=== PATIENT | female | born 1940 | race Caucasian/White ===

== ENCOUNTER 2016-10-08 15:18 | Emergency (ER) | payer MEDICARE, MEDICAID ==
[~2016-10-08] VITALS: Ht 149.9 cm; Wt 136.0 kg
[~2016-10-08 15:18] MED LIST: ALLO300T74 PO; CA C1TAB81 PO; FAMO-14 PO; FURO80TA3 PO; HYDR-1343 PO; HYDROCORTISONE 2.5% TOP; MULT-806 PO; ROSU10TA13 PO; SPIR100T24 PO; TRAM50TA4 PO; [UNRECOGNIZED DRUG - CODE] PO; [UNRECOGNIZED DRUG - OTHER] PO
[2016-10-08 15:21] VITALS: Ht 149.9 cm; Wt 136.0 kg
--- OUTSIDE RECORDS SUMMARY | 2016-10-08 15:26 | XMS REPORT | Referral Summary ---
Author Author [facility] Organization [facility], [facility] Address Unknown Phone Unavailable Care Team Providers Care Promotions Manager Name Role Phone Ricco Dangelo Primary Care Physician [phone] Encounter VC Date(s): 10/22/15 - 10/22/15 [facility], [facility] [address], [place] [id number] Discharge Disposition: 01-Home or Self Care Attending Physician: Emiliana Jean Admitting Physician: Emiliana Jean Vital Signs Most recent to 1 oldest [Reference Range]: Peripheral Pulse 79 bpm Rate [60-100 bpm] (10/22/15 8:51 AM) Blood Pressure 128/70 mmHg [90-140/60-90 mmHg] (10/22/15 8:51 AM) SpO2 94 % (10/22/15 8:51 AM) Problem List Condition Effective Dates Status Health Status Informant Anemia(Confirmed) Active arthritis(Confirmed) Resolved At high risk for Active pneumonia(Confirmed) Benign essential Active hypertension(Confirm ed) Bladder 1990 Active problem(Confirmed) Chicken 194 Active pox(Confirmed) Chronic kidney Active disease (CKD), stage III (moderate)(Confirmed ) Congestive heart Active failure(Confirmed) Constipation - Active occasionally(Confirm ed) Osteoarthritis of Active hand(Confirmed) Digitalis 1990 Active toxicity(Confirmed) polyps(Confirmed) Active Chronic Active gout(Confirmed) Headaches - Active tension(Confirmed) High Active cholesterol(Confirme d) hyperlipidemia(Confi Resolved rmed) hypertension(Confirm Resolved ed) Adult Active hypothyroidism(Confi rmed) Insomnia(Confirmed) Active Kidney Active disease(Confirmed) Kidney Active stones(Confirmed) Lymphedema(Confirmed Active ) lymphedema(Confirmed Resolved ) Lymphedema of Active leg(Confirmed) Morbid Active obesity(Confirmed) Obesity(Confirmed) Active CLARISSA (obstructive Active sleep apnea)(Confirmed) Osteoarthritis, Active hands(Confirmed) Osteoarthritis lower 1990 Active leg(Confirmed) Osteoarthritis of Active both knees(Confirmed) Peripheral Active edema(Confirmed) Pernicious Active anemia(Confirmed) Thrombocytopenia(Con Active firmed) Primary Active hypercholesterolemia (Confirmed) Rosacea(Confirmed) Active Tubular Active adenoma(Confirmed) Villoglandular 2007 Active colonic polyp(Confirmed) Villoglandular 2009 Active colonic polyp(Confirmed) Villoglandular 2009 Active colonic polyp(Confirmed) Visual Active problems(Confirmed) Allergies, Adverse Reactions, Alerts Substance Reaction Severity Status Bactrim Active Mupirocin Calcium rash Active sulfamethoxazole rash all over Active trimethoprim rash all over Active Medications allopurinol 300 mg oral tablet See Instructions, TAKE ONE TABLET BY MOUTH ONCE A DAY, # 30 tabs, 1 Refill(s), eRx: [facility] #[id number], TAKE ONE TABLET BY MOUTH ONCE A DAY Start Date: 09/21/15 Status: Ordered Crestor 10 mg oral tablet See Instructions, TAKE ONE TABLET BY MOUTH AT BEDTIME, # 90 tabs, eRx: [facility] #[id number], TAKE ONE TABLET BY MOUTH AT BEDTIME Start Date: 10/02/15 Status: Ordered famotidine 20 mg oral tablet See Instructions, TAKE ONE TABLET BY MOUTH TWICE A DAY, # 60 tabs, 1 Refill(s), eRx: [facility] #[id number], TAKE ONE TABLET BY MOUTH TWICE A DAY Start Date: 10/12/15 Status: Ordered fluticasone nasal 2 sprays, Nasal, Daily, as needed for allergy symptoms, 0 Refill(s) Start Date: 12/25/13 Status: Ordered furosemide 80 mg oral tablet See Instructions, TAKE ONE-HALF TABLET BY MOUTH EVERY DAY, # 30 tabs, 3 Refill(s ), eRx: [facility] #[id number], TAKE ONE-HALF TABLET BY MOUTH EVERY DAY Start Date: 05/18/15 Status: Ordered hydrocortisone 2.5% topical cream See Instructions, APPLY VERY LIGHTLY TO FACIAL RASH TWO TIMES A DAY NEEDED, # 30 unknown unit, eRx: [facility] #[id number], APPLY VERY LIGHTLY TO FACIAL RASH TWO TIMES A DAY NEEDED Start Date: 12/19/14 Status: Ordered levothyroxine 25 mcg (0.025 mg) oral tablet See Instructions, TAKE ONE TABLET BY MOUTH DAILY, # 30 tabs, 3 Refill(s), eRx: [facility] #[id number], TAKE ONE TABLET BY MOUTH DAILY Start Date: 08/03/15 Status: Ordered Metafolbic Plus oral tablet See Instructions, TAKE ONE TABLET BY MOUTH DAILY, # 30 tabs, eRx: [facility] #[id number], TAKE ONE TABLET BY MOUTH DAILY Start Date: 10/19/15 Status: Ordered pyridoxine 100 mg oral tablet 1 tabs, Oral, Daily, 0 Refill(s) Start Date: 12/25/13 Status: Ordered spironolactone 100 mg oral tablet See Instructions, TAKE ONE TABLET BY MOUTH EVERY DAY., # 30 tabs, 9 Refill(s), eRx: [facility] #[id number], TAKE ONE TABLET BY MOUTH EVERY DAY. Start Date: 12/17/14 Status: Ordered traMADol 50 mg oral tablet 50 mg 1 tabs, Oral, q6hr, as needed for pain, [place], # 60 tabs, 2 Refill(s) Start Date: 07/01/15 Status: Ordered Vitamin D with Minerals oral tablet 1 tabs, Oral, Daily, # 30 tabs, 0 Refill(s) Start Date: 02/27/14 Status: Ordered Wheelchair (DME) DME Item Electric wheelchair, See Instructions, # 1 Each, 0 Refill(s), Supply Start Date: 07/29/14 Status: Ordered Results No data available for this section Immunizations Vaccine Date Refusal Reason pneumococcal 23-polyvalent vaccine 11/07/14 pneumococcal 23-polyvalent vaccine 11/01/13 tetanus-diphth toxoids (Td) adult/adol 09/05/08 zoster vaccine live 07/12/07 Procedures Procedure Date Related Diagnosis Body Site Cataract extraction and insertion of 2013 intraocular lens1 Cataract extraction and insertion of 2013 intraocular lens2 Colonoscopy 2011 Colonoscopy - Hx polyps, tubular adenoma 05/21/10 Colonoscopy - Hx polyps, tubular adenoma 04/10/09 Colonoscopy - Hx polyps, polyp 09/26/08 Colonoscopy with biopsy3 08/24/07 Dilation and curettage 2001 Hysteroscopy 2001 digitalis toxicity 1990 Cholecystectomy 1974 Appendectomy 1974 section 1965 section 1964 Dilation and curettage 1954 Tubal ligation 1November--OS--did 4 different procedures 2OD 3Colonoscopy with hyperplastic polyp ascending colon, biopsy of cecal lesion showing tubulovillous adenoma, unable to be removed endoscopically. Pt not wishing to have surgery at this time. Plan repeat colonoscopy in 6 months to one year. Letter set up. Social History Social History Type Response Smoking Status Former smoker; Type: Cigarettes; Tobacco use per day: More than 1 pack; Number of years: 38 Assessment and Plan No data available for this section
--- OUTSIDE RECORDS SUMMARY | 2016-10-08 15:26 | XMS REPORT | Referral Summary ---
Author Author [facility] [place], [facility] Organization [facility] [place] [facility] Address Unknown Phone Unavailable Care Team Providers Care Health And Wellness Sales Consultant Name Role Phone Ricco Dangelo Primary Care Physician [phone] Encounter VC Date(s): 08/14/15 - 08/14/15 [facility] [place], [address] [place] [address] Discharge Disposition: 01-Home or Self Care Attending Physician: Joshua Dangelo MD Admitting Physician: Joshua Dangelo MD Vital Signs Most recent to 1 oldest [Reference Range]: Temperature Tympanic 36.6 degC [36.6-38.1 degC] (08/14/15 9:45 AM) Peripheral Pulse 78 bpm Rate [60-100 bpm] (08/14/15 9:45 AM) Blood Pressure 122/64 mmHg [90-140/60-90 mmHg] (08/14/15 9:45 AM) Problem List Condition Effective Dates Status Health Status Informant Anemia(Confirmed) Active arthritis(Confirmed) Resolved At high risk for Active pneumonia(Confirmed) Benign essential Active hypertension(Confirm ed) Bladder 1990 Active problem(Confirmed) Chicken 1944 Active pox(Confirmed) Chronic kidney Active disease (CKD), [...] DAY, # 30 tabs, 1 Refill(s), eRx: [facility] #[id number], TAKE ONE TABLET BY MOUTH ONCE A DAY Start Date: 07/20/15 Status: Ordered Colcrys 0.6 mg oral tablet 0.6 mg 1 tabs, Oral, Daily, X 3 days, # 3 tabs, 0 Refill(s), Pharmacy: [facility] #[id number] Start Date: 08/14/15 Stop Date: 08/17/15 Status: Ordered Crestor 10 mg oral tablet See Instructions, TAKE ONE TABLET BY MOUTH AT BEDTIME, # 90 tabs, 2 Refill(s), eRx: [facility] #[id number], TAKE ONE TABLET BY MOUTH AT BEDTIME Start Date: 12/05/14 Status: Ordered famotidine 20 mg oral tablet See Instructions, TAKE ONE TABLET BY MOUTH TWICE A DAY, # 60 tabs, 10 Refill(s) , eRx: [facility] #[id number], TAKE ONE TABLET BY MOUTH TWICE A DAY Start Date: 11/14/14 Status: Ordered fluticasone nasal 2 sprays, Nasal, Daily, as needed for allergy symptoms, 0 Refill(s) Start Date: 12/25/13 Status: Ordered furosemide 80 mg oral tablet See Instructions, TAKE ONE-HALF TABLET BY MOUTH EVERY DAY, # 30 tabs, 3 Refill(s ), eRx: [facility] #[id number], TAKE ONE-HALF TABLET BY MOUTH EVERY DAY Start Date: 05/18/15 Status: Ordered hydrocortisone 2.5% topical cream See Instructions, APPLY VERY LIGHTLY TO FACIAL RASH TWO TIMES A DAY NEEDED, # 30 unknown unit, eRx: [facility] #[id number], APPLY VERY LIGHTLY TO FACIAL RASH TWO TIMES A DAY NEEDED Start Date: 12/19/14 Status: Ordered levothyroxine 25 mcg (0.025 mg) oral tablet See Instructions, TAKE ONE TABLET BY MOUTH DAILY, # 30 tabs, 3 Refill(s), eRx: [facility] #[id number], TAKE ONE TABLET BY MOUTH DAILY Start Date: 08/03/15 Status: Ordered Metafolbic Plus oral tablet See Instructions, TAKE ONE TABLET BY MOUTH DAILY, # 30 tabs, 10 Refill(s), eRx: [facility] #[id number], TAKE ONE TABLET BY MOUTH DAILY Start Date: 11/14/14 Status: Ordered pyridoxine 100 mg oral tablet 1 tabs, Oral, Daily, 0 Refill(s) Start Date: 12/25/13 Status: Ordered spironolactone 100 mg oral tablet See Instructions, TAKE ONE TABLET BY MOUTH EVERY DAY., # 30 tabs, 9 Refill(s), eRx: [facility] #[id number], TAKE ONE TABLET BY MOUTH EVERY DAY. [...] Supply Start Date: 07/29/14 Status: Ordered Results Hematology Most recent to 1 oldest [Reference Range]: WBC [4.8-10.8 6.6 10*3/uL 10*3/uL] (08/14/15 10:30 AM) RBC [4.00-5.20] 3.69 *LOW* (08/14/15 10:30 AM) Hgb [12.0-16.0 11.6 gm/dL gm/dL] *LOW* (08/14/15 10:30 AM) Hct [37.0-47.0 %] 34.9 % *LOW* (08/14/15 10:30 AM) MCV [82.0-99.0 fL] 94.6 fL (08/14/15 10:30 AM) MCH [27.0-32.0 pg] 31.4 pg (08/14/15 10:30 AM) MCHC [32.0-36.0 33.2 gm/dL gm/dL] (08/14/15 10:30 AM) RDW [11.5-14.5 %] 15.8 % *HI* (08/14/15 10:30 AM) Platelet [150-400 80 10*3/uL 1 10*3/uL] *LOW* (08/14/15 10:30 AM) MPV [8.8-14.8 fL] 12.1 fL (08/14/15 10:30 AM) Neutrophils [51-75 61 % %] (08/14/15 10:30 AM) Lymphocytes [20-46 28 % %] (08/14/15 10:30 AM) Monocytes [4-11 %] 11 % (08/14/15 10:30 AM) Eosinophils [0-4 %] 0 % (08/14/15 10:30 AM) Basophils [0-2 %] 0 % (08/14/15 10:30 AM) Neutro Absolute 4.03 10*3 [1.90-7.00 10*3] (08/14/15 10:30 AM) Lymph Absolute 1.85 10*3 [0.80-3.30 10*3] (08/14/15 10:30 AM) [place] Absolute 0.73 10*3 [0.30-1.00 10*3] (08/14/15 10:30 AM) Eos Absolute 0.00 10*3 [0.00-0.50 10*3] (08/14/15 10:30 AM) Baso Absolute 0.00 10*3 [0.00-0.20 10*3] (08/14/15 10:30 AM) Differential Manual *ABN* (08/14/15 10:30 AM) 1Result Comment: Platelet checks with slide. No clumps appear. Chemistry Most recent to 1 oldest [Reference Range]: Sodium Lvl [135-144 139 mEq/L mEq/L] (08/14/15 10:30 AM) Potassium Lvl 4.5 mEq/L [3.5-5.2 mEq/L] (08/14/15 10:30 AM) Chloride [99-111 106 mEq/L mEq/L] (08/14/15 10:30 AM) CO2 [22-31 mEq/L] 24 mEq/L (08/14/15 10:30 AM) AGAP [3-20] 9 (08/14/15 10:30 AM) BUN [10-20 mg/dL] 34 mg/dL *HI* (08/14/15 10:30 AM) Glucose Lvl [70-99 98 mg/dL mg/dL] (08/14/15 10:30 AM) Creatinine Lvl 1.13 mg/dL [0.57-1.11 mg/dL] *HI* (08/14/15 10:30 AM) eGFR [>60 mL/min] 47 mL/min 1 *ABN* (08/14/15 10:30 AM) Calcium Lvl 9.5 mg/dL [8.9-10.5 mg/dL] (08/14/15 10:30 AM) Albumin Lvl [3.4-4.8 4.2 gm/dL gm/dL] (08/14/15 10:30 AM) Total Protein 7.4 gm/dL [6.2-8.1 gm/dL] (08/14/15 10:30 AM) Globulin [1.8-4.0 3.2 gm/dL gm/dL] (08/14/15 10:30 AM) ALT [0-55 U/L] 10 U/L (08/14/15 10:30 AM) AST [5-34 U/L] 16 U/L (08/14/15 10:30 AM) Alk Phos [40-150 106 U/L U/L] (08/14/15 10:30 AM) Bili Total [0.2-1.2 0.6 mg/dL mg/dL] (08/14/15 10:30 AM) Uric Acid [2.6-6.0 4.5 mg/dL mg/dL] (08/14/15 10:30 AM) TSH [0.35-4.94] 2.58 (08/14/15 10:30 AM) 1Result Comment: Multiply eGFR results by 1.21 for race. Immunizations Vaccine Date Refusal Reason pneumococcal 23-polyvalent [...] 2001 digitalis toxicity 1990 Cholecystectomy 1974 Appendectomy 1973 section 1965 section 1963 Dilation and curettage 1954 Tubal ligation 1November--OS--did [...] Number of years: 38 Assessment and Plan Extracted from: Title: Ambulatory Patient Education Author: Joshua Dangelo MD Date: 08/14 Family Medicine Gout Gout is an inflammatory arthritis caused by a buildup of uric acid crystals in the joints. Uric acid is a chemical that is normally present in the blood. When the level of uric acid in the blood is too high it can form crystals that deposit in your joints and tissues. This causes joint redness, soreness, and swelling (inflammation). Repeat attacks are common. Over time, uric acid crystals can form into masses (tophi) near a joint, destroying bone and causing disfigurement. Gout is treatable and often preventable. CAUSES The disease begins with elevated levels of uric acid in the blood. Uric acid is produced by your body when it breaks down a naturally found substance called purines. Certain foods you eat, such as meats and fish, contain high amounts of purines. Causes of an elevated uric acid level include: Being passed down from parent to child (heredity). Diseases that cause increased uric acid production (such as obesity, psoriasis, and certain cancers). Excessive alcohol use. Diet, especially diets rich in meat and seafood. Medicines, including certain cancer-fighting medicines (chemotherapy), water pills (diuretics), and aspirin. Chronic kidney disease. The kidneys are no longer able to remove uric acid well. Problems with metabolism. Conditions strongly associated with gout include: Obesity. High blood pressure. High cholesterol. Diabetes. Not everyone with elevated uric acid levels gets gout. It is not understood why some people get gout and others do not. Surgery, joint injury, and eating too much of certain foods are some of the factors that can lead to gout attacks. SYMPTOMS An attack of gout comes on quickly. It causes intense pain with redness, swelling, and warmth in a joint. Fever can occur. Often, only one joint is involved. Certain joints are more commonly involved: Base of the big toe. Knee. Ankle. Wrist. Finger. Without treatment, an attack usually goes away in a few days to weeks. Between attacks, you usually will not have symptoms, which is different from many other forms of arthritis. DIAGNOSIS Your caregiver will suspect gout based on your symptoms and exam. In some cases , tests may be recommended. The tests may include: Blood tests. Urine tests. X-rays. Joint fluid exam. This exam requires a needle to remove fluid from the joint (arthrocentesis). Using a microscope, gout is confirmed when uric acid crystals are seen in the joint fluid. TREATMENT There are two phases to gout treatment: treating the sudden onset (acute) attack and preventing attacks (prophylaxis). Treatment of an Acute Attack. Medicines are used. These include anti-inflammatory medicines or steroid medicines. An injection of steroid medicine into the affected joint is sometimes necessary. The painful joint is rested. Movement can worsen the arthritis. You may use warm or cold treatments on painful joints, depending which works best for you. Treatment to Prevent Attacks. If you suffer from frequent gout attacks, your caregiver may advise preventive medicine. These medicines are started after the acute attack subsides. These medicines either help your kidneys eliminate uric acid from your body or decrease your uric acid production. You may need to stay on these medicines for a very long time. The early phase of treatment with preventive medicine can be associated with an increase in acute gout attacks. For this reason, during the first few months of treatment, your caregiver may also advise you to take medicines usually used for acute gout treatment. Be sure you understand your caregiver's directions. Your caregiver may make several adjustments to your medicine dose before these medicines are effective. Discuss dietary treatment with your caregiver or dietitian. Alcohol and drinks high in sugar and fructose and foods such as meat, poultry, and seafood can increase uric acid levels. Your caregiver or dietitian can advise you on drinks and foods that should be limited. HOME CARE INSTRUCTIONS Do not take aspirin to relieve pain. This raises uric acid levels. Only take [id number] or prescription medicines for pain, discomfort , or fever as directed by your caregiver. Rest the joint as much as possible. When in bed, keep sheets and blankets off painful areas. Keep the affected joint raised (elevated). Apply warm or cold treatments to painful joints. Use of warm or cold treatments depends on which works best for you. Use crutches if the painful joint is in your leg. Drink enough fluids to keep your urine clear or pale yellow. This helps your body get rid of uric acid. Limit alcohol, sugary drinks, and fructose drinks. Follow your dietary instructions. Pay careful attention to the amount of protein you eat. Your daily diet should emphasize fruits, vegetables, whole grains, and fat-free or low-fat milk products. Discuss the use of coffee, vitamin C, and cherries with your caregiver or dietitian. These may be helpful in lowering uric acid levels. Maintain a healthy body weight. SEEK MEDICAL CARE IF: You develop diarrhea, vomiting, or any side effects from medicines. You do not feel better in 24 hours, or you are getting worse. SEEK IMMEDIATE MEDICAL CARE IF: Your joint becomes suddenly more tender, and you have chills or a fever. MAKE SURE YOU: Understand these instructions. Will watch your condition. Will get help right away if you are not doing well or get worse. This information is not intended to replace advice given to you by your health care provider. Make sure you discuss any questions you have with your health care provider. Document Released: 06/16/2001 Document Revised: 11/03/2014 Document Reviewed: [facility] Patient Information 2015 [facility]. No follow up information was provided. Extracted from: Title: gout, obesity, lymphedema, Author: Joshua Dangelo MD Date: HTN Impression and Plan Diagnosis Acute gout of right hand ([id number]-LP [id number].0410, Working, Medical). CLARISSA (obstructive sleep apnea) (OIA69-SI G47.33, Working, Medical). Benign essential hypertension (TPC58-NO I10, Working, Medical). Primary hypercholesterolemia (ZGH92-MB E78.0, Working, Medical). Lymphedema of leg (PKO53-RR I89.0, Working, Medical). Morbid obesity (GFM50-DP E66.01, Working, Medical). Osteoarthritis of both knees (VXV99-YO M17.0, Working, Medical). Pernicious anemia (YZN99-IN D51.0, Working, Medical). Chronic kidney disease (CKD), stage III (moderate) (MZC42-IT N18.3, Working, Medical). Thrombocytopenia (HXO60-AY D69.6, Working, Medical). Hypothyroidism, adult (MTU25-ZP E03.9, Working, Medical). Plan: 1) Get lab today. 2) Take the Colcrys daily for 3 days for gout. 3) Continue your routine meds. 4) Healthy diet and daily exercise helps most things. 5) See me in 3 months and as needed. 6) You refused the flu shot.. Orders Orders (Selected) Outpatient Orders Ordered Office Visit Level 4 Est 91356: Future (On Hold) CBC w/ Differential: CMP: TSH 3rd Generation: Uric Acid: Prescriptions Prescribed Colcrys 0.6 mg oral tablet: 0.6 mg=1 tabs, Oral, Daily, for 3 days, 3 tabs, 0 Refill(s). Dx/Order Association Plan: Diagnosis: Acute gout of right hand Comment: Ordered: Office Visit Level 4 Est [id number]; 08/14/15 10:03:00 CYBER CRIME INVESTIGATOR, Acute gout of right hand | Benign essential hypertension | Chronic kidney disease (CKD), stage III (moderate) | Lymphedema of leg Diagnosis: Benign essential hypertension Comment: Ordered: Office Visit Level 4 Est [id number]; 08/14/15 10:03:00 CYBER CRIME INVESTIGATOR, Acute gout of right hand | Benign essential hypertension | Chronic kidney disease (CKD), stage III (moderate) | Lymphedema of leg Diagnosis: Chronic kidney disease (CKD), stage III (moderate) Comment: Ordered: Office Visit Level 4 Est [id number]; 08/14/15 10:03:00 CYBER CRIME INVESTIGATOR, Acute gout of right hand | Benign essential hypertension | Chronic kidney disease (CKD), stage III (moderate) | Lymphedema of leg Diagnosis: Hypothyroidism, adult Comment: Diagnosis: Lymphedema of leg Comment: Ordered: Office Visit Level 4 Est [id number]; 08/14/15 10:03:00 CYBER CRIME INVESTIGATOR, Acute gout of right hand | Benign essential hypertension | Chronic kidney disease (CKD), stage III (moderate) | Lymphedema of leg Diagnosis: Morbid obesity Comment: Diagnosis: CLARISSA (obstructive sleep apnea) Comment: Diagnosis: Osteoarthritis of both knees Comment: Diagnosis: Pernicious anemia Comment: Diagnosis: Primary hypercholesterolemia Comment: Diagnosis: Thrombocytopenia Comment: Diagnosis: Benign essential hypertension Comment: Diagnosis: Primary hypercholesterolemia Comment: Diagnosis: Lymphedema of leg Comment: Diagnosis: Chronic kidney disease (CKD), stage III (moderate) Comment: Diagnosis: Acute gout of right hand Comment: Diagnosis: Benign essential hypertension Comment: Diagnosis: Thrombocytopenia Comment: Diagnosis: Pernicious anemia Comment: Diagnosis: Chronic kidney disease (CKD), stage III (moderate) Comment: Diagnosis: Hypothyroidism, adult Comment: Additional Orders: Comment: Ordered: Colcrys 0.6 mg oral tablet,0.6 mg 1 tabs, Oral, Daily, X 3 days, # 3 tabs, 0 Refill(s), Pharmacy: [facility] #[id number] End of Orders ."
--- OUTSIDE RECORDS SUMMARY | 2016-10-08 15:26 | XMS REPORT | Referral Summary ---
Author Author [facility] Organization [facility] Address Unknown Phone Unavailable Care Team Providers Care Recreation Professor Name Role Phone Ricco Dangelo Primary Care Physician [phone] Encounter VC Date(s): 03/04/16 - 03/04/16 [facility] [address] [place], [place] [id number] Discharge Diagnosis: Tubular adenoma Discharge Disposition: 01-Home or Self Care Attending Physician: Kris Dallas MD Admitting Physician: Kris Dallas MD Vital Signs Most recent to 1 oldest [Reference Range]: Temperature Temporal 36.6 degC Artery [36.3-37.8 (03/04/16 6:53 AM) degC] Peripheral Pulse 66 bpm Rate [60-100 bpm] (03/04/16 6:53 AM) Respiratory Rate 20 br/min [14-20 br/min] (03/04/16 6:53 AM) Blood Pressure 150/86 mmHg [90-140/60-90 mmHg] *HI* (03/04/16 6:53 AM) SpO2 94 % (03/04/16 6:53 AM) Problem List Condition Effective Dates Status Health Status Informant Anemia(Confirmed) Active arthritis(Confirmed) Resolved At high risk for Active pneumonia(Confirmed) Benign essential Active hypertension(Confirm ed) Tubular Active adenoma(Confirmed) Bladder 1990 Active problem(Confirmed) Sleep related Active hypoventilation/hypo xemia in other disease(Confirmed) Chicken 1944 Active pox(Confirmed) Chronic kidney Active disease (CKD), stage III (moderate)(Confirmed ) Congestive heart Active failure(Confirmed) Constipation - Active occasionally(Confirm ed) Osteoarthritis of Active hand(Confirmed) Digitalis 1990 Active toxicity(Confirmed) polyps(Confirmed) Active Headaches - Active tension(Confirmed) High Active cholesterol(Confirme [...] edema(Confirmed) Pernicious Active anemia(Confirmed) Thrombocytopenia(Con Active firmed) Chronic Active gout(Confirmed) Primary Active hypercholesterolemia (Confirmed) Rosacea(Confirmed) Active Villoglandular 2007 Active colonic polyp(Confirmed) Villoglandular 2008 Active colonic polyp(Confirmed) Villoglandular 2009 Active colonic polyp(Confirmed) Visual Active problems(Confirmed) Allergies, Adverse Reactions, Alerts Substance Reaction Severity Status Bactrim Active Mupirocin Calcium rash Active sulfamethoxazole rash all over Active trimethoprim rash all over Active Medications allopurinol 300 mg oral tablet See Instructions, TAKE ONE TABLET BY MOUTH ONCE A DAY, # 30 tabs, 2 Refill(s), eRx: [facility] #[id number], TAKE ONE TABLET BY MOUTH ONCE A DAY Start Date: 11/23/15 Status: Ordered Crestor 10 mg oral tablet See Instructions, TAKE ONE TABLET BY MOUTH AT BEDTIME, # 90 tabs, eRx: [facility] #[id number], TAKE ONE TABLET BY MOUTH AT BEDTIME Start Date: 01/01/16 Status: Ordered famotidine 20 mg oral tablet See Instructions, TAKE ONE TABLET BY MOUTH TWICE A DAY, # 60 tabs, 2 Refill(s), eRx: [facility] #[id number], TAKE ONE TABLET BY MOUTH TWICE A DAY Start Date: 12/03/15 Status: Ordered fluticasone nasal 2 sprays, Nasal, Daily, as needed for allergy symptoms, 0 Refill(s) Start Date: 12/25/13 Status: Ordered hydrocortisone 2.5% topical cream See Instructions, APPLY VERY LIGHTLY TO FACIAL RASH TWO TIMES A DAY NEEDED, # 30 unknown unit, 1 Refill(s), eRx: [facility] #[id number], APPLY VERY LIGHTLY TO FACIAL RASH TWO TIMES A DAY NEEDED Start Date: 01/21/16 Status: Ordered levothyroxine 25 mcg (0.025 mg) oral tablet See Instructions, TAKE ONE TABLET BY MOUTH DAILY, # 30 tabs, 6 Refill(s), eRx: [facility] #[id number], TAKE ONE TABLET BY MOUTH DAILY Start Date: 12/09/15 Status: Ordered Metafolbic Plus oral tablet See Instructions, TAKE ONE TABLET BY MOUTH DAILY, # 30 tabs, 1 Refill(s), eRx: [facility] #[id number], TAKE ONE TABLET BY MOUTH DAILY Start Date: 01/11/16 Status: Ordered pyridoxine 100 mg oral tablet 1 tabs, Oral, Daily, 0 Refill(s) Start Date: 12/25/13 Status: Ordered spironolactone 100 mg oral tablet See Instructions, TAKE ONE TABLET BY MOUTH EVERY DAY., # 30 tabs, 1 Refill(s), eRx: [facility] #[id number], TAKE ONE TABLET BY MOUTH EVERY DAY. Start Date: 12/15/15 Status: Ordered traMADol 50 mg oral tablet 50 mg 1 tabs, Oral, q6hr, as needed for pain, [place] Lindsey, # 60 tabs, 1 Refill(s) Start Date: 12/21/15 Status: Ordered Vitamin D with Minerals oral tablet 1 tabs, Oral, Daily, # 30 tabs, 0 Refill(s) Start Date: 02/27/14 Status: Ordered Wheelchair (DME) DME Item Electric wheelchair, See Instructions, # 1 Each, 0 Refill(s), Supply Start Date: 07/29/14 Status: Ordered Results No data available for this section Immunizations Vaccine Date Refusal Reason pneumococcal 13-valent conjugate vaccine 02/12/16 pneumococcal 23-polyvalent vaccine 11/07/14 pneumococcal 23-polyvalent vaccine [...] and curettage 2001 Hysteroscopy 2001 digitalis toxicity 1991 Cholecystectomy 1974 Appendectomy 1973 section 1964 section 1964 Dilation and curettage 1954 Tubal [...] Extracted from: Title: Ambulatory Patient Education Author: Wendi Briscoe RN Date: 03/04/16 [facility] [phone] [facility] [phone] Endoscopy discharge instructions Diet Start with liquids, then light foods, then progress to normal foods. Medication Resume routine medications. Follow- up Care If any problems occur or if you have any further questions, please contact your physician. In an emergency, call [phone] ([phone]), if you cannot reach your physician. If you find that you cannot contact your physician, but feel that your signs and symptoms warrant a physicians attention, go to an Emergency room which is the closest to you. You have had: X Colonoscopy Upper Endoscopy Liver Biopsy You should rest today. You have had sedating medicines. Until tomorrow please: Do NOT drive or operate hazardous machinery or power tools. Do NOT drink alcoholic beverages, not even beer or wine. Do NOT make important or legal decisions. Do NOT shower or bathe as this may cause dizziness. Because of the sedation you have received, we ask that a responsible adult be with you for the rest of the day for your safety and protection. Call your doctor promptly if you have: Redness or swelling at IV site. If fever over 101degree Pain not relieved by pain medication by Tylenol. Coughing or spitting up blood. Persistent nausea and vomiting. Excessive blood with bowel movement. Findings: See me in the office in 2 weeks. No follow up information was provided.
--- OUTSIDE RECORDS SUMMARY | 2016-10-08 15:26 | XMS REPORT | Referral Summary ---
Author Author [facility] [place], [facility] Organization [facility] Address Unknown Phone Unavailable Care Team Providers Care Paint Brush Maker Name Role Phone Ricco Dangelo Primary Care Physician [phone] Encounter Date(s): 08/19/16 - 08/19/16 [facility] [place], [address] [place] [address] Discharge Diagnosis: Primary hypercholesterolemia Discharge Diagnosis: Morbid obesity Discharge Diagnosis: CLARISSA on CPAP Discharge Diagnosis: Orthopnea Discharge Diagnosis: Chronic kidney disease (CKD), stage III (moderate) Discharge Diagnosis: Fatigue Discharge Diagnosis: Lymphedema of leg Discharge Diagnosis: Tension headache Discharge Diagnosis: Benign essential hypertension Discharge Diagnosis: Thrombocytopenia Discharge Diagnosis: Pernicious anemia Discharge Diagnosis: Adult hypothyroidism Discharge Diagnosis: Osteoarthritis of both knees Discharge Diagnosis: Chronic gout Discharge Diagnosis: Tension headache Discharge Diagnosis: Primary hypercholesterolemia Discharge Diagnosis: Chronic gout Discharge Disposition: 01-Home or Self Care Attending Physician: Joshua Dangelo MD Admitting Physician: Joshua Dangelo MD Vital Signs Most recent to 1 oldest [Reference Range]: Temperature Tympanic 36.6 degC [36.6-38.1 degC] (08/19/16 9:59 AM) Peripheral Pulse 76 bpm Rate [60-100 bpm] (08/19/16 9:59 AM) Blood Pressure 170/72 mmHg [90-140/60-90 mmHg] *HI* (08/19/16 9:59 AM) Problem List Condition Effective Dates Status [...] edema(Confirmed) Pernicious Active anemia(Confirmed) Thrombocytopenia(Con Active firmed) Polyp of Active cecum(Confirmed) Chronic Active gout(Confirmed) Primary Active hypercholesterolemia (Confirmed) [...] MOUTH ONCE A DAY, # 30 tabs, 10 Refill(s), eRx: [facility] #[id number], TAKE ONE TABLET BY MOUTH ONCE A DAY Start Date: 03/08/16 Status: Ordered Crestor 10 mg oral tablet See Instructions, TAKE ONE TABLET BY MOUTH AT BEDTIME, # 90 tabs, 2 Refill(s), eRx: [facility] #[id number], TAKE ONE TABLET BY MOUTH AT BEDTIME Start Date: 04/04/16 Status: Ordered famotidine 20 mg oral tablet See Instructions, TAKE ONE TABLET BY MOUTH TWICE A DAY, # 60 tabs, 10 Refill(s) , eRx: [facility] #[id number], TAKE ONE TABLET BY MOUTH TWICE A DAY Start Date: 03/08/16 Status: Ordered fluticasone nasal 2 sprays, Nasal, Daily, as needed for allergy symptoms, 0 Refill(s) Start Date: 12/25/13 Status: Ordered furosemide 80 mg oral tablet See Instructions, TAKE ONE-HALF TABLET BY MOUTH EVERY DAY, # 30 tabs, 3 Refill(s ), eRx: [facility] #[id number], TAKE ONE-HALF TABLET BY MOUTH EVERY DAY Start Date: 06/06/16 Status: Ordered hydrocortisone 2.5% topical cream See Instructions, APPLY VERY LIGHTLY TO FACIAL RASH TWO TIMES A DAY NEEDED, # 30 unknown unit, 1 Refill(s), eRx: [facility] #[id number], APPLY VERY LIGHTLY TO FACIAL RASH TWO TIMES A DAY NEEDED Start Date: 01/21/16 Status: Ordered l-methylfolate 7.5 mg oral tablet 7.5 mg 1 tabs, Oral, Daily, # 30 tabs, 10 Refill(s), Pharmacy: [facility] #[id number], Cancel Metafolbic Plus Caplet, 1 tabs Oral Daily Start Date: 03/08/16 Status: Ordered levothyroxine 25 mcg (0.025 mg) oral tablet See Instructions, TAKE ONE TABLET BY MOUTH DAILY, # 30 tabs, eRx: [facility] #[id number] Start Date: 08/09/16 Status: Ordered pyridoxine 100 mg oral tablet 1 tabs, Oral, Daily, 0 Refill(s) Start Date: 12/25/13 Status: Ordered spironolactone 100 mg oral tablet See Instructions, TAKE ONE TABLET BY MOUTH EVERY DAY., # 30 tabs, 10 Refill(s), eRx: [facility] #[id number], TAKE ONE TABLET BY MOUTH EVERY DAY. Start Date: 03/08/16 Status: Ordered traMADol 50 mg oral tablet 50 mg 1 tabs, Oral, q6hr, as needed for pain, [place], # 60 tabs, 1 Refill(s) Start Date: 08/09/16 Status: Ordered Vitamin B-12 1000 mcg oral tablet 2,000 mcg 2 tabs, Oral, Daily, # 60 tabs, 10 Refill(s), Pharmacy: [facility] #[id number], Cancel Metafolbic Plus Caplet, 2 tabs Oral Daily Start Date: 03/08/16 Status: Ordered Vitamin D with Minerals oral tablet 1 tabs, Oral, Daily, # 30 tabs, 0 Refill(s) Start Date: 02/27/14 Status: Ordered Wheelchair (DME) DME Item Electric wheelchair, See Instructions, # 1 Each, 0 Refill(s), Supply Start Date: 07/29/14 Status: Ordered Results Hematology Most recent to 1 oldest [Reference Range]: WBC [4.8-10.8 7.2 10*3/uL 10*3/uL] (08/19/16 11:23 AM) RBC [4.00-5.20] 3.71 *LOW* (08/19/16 11:23 AM) Hgb [12.0-16.0 11.5 gm/dL gm/dL] *LOW* (08/19/16 11:23 AM) Hct [37.0-47.0 %] 35.9 % *LOW* (08/19/16:23 AM) MCV [82.0-99.0 fL] 96.8 fL (08/19/16 11:23 AM) MCH [27.0-32.0 pg] 31.0 pg (08/19/16 11:23 AM) MCHC [32.0-36.0 32.0 gm/dL gm/dL] (08/19/16 11:23 AM) RDW [11.5-14.5 %] 15.9 % *HI* (08/19/16 11:23 AM) Platelet [150-400 92 10*3/uL 1 10*3/uL] *LOW* (08/19/16 11:23 AM) MPV [8.8-14.8 fL] 13.1 fL (08/19/16 11:23 AM) Immature 0.6 % Granulocytes (08/19/16:23 AM) [0.0-1.0 %] Neutrophils [51-75 57 % %] (08/19/16 11:23 AM) Lymphocytes [20-46 20 % %] (08/19/16 11:23 AM) Monocytes [4-11 %] 22 % *HI* (08/19/16 11:23 AM) Eosinophils [0-4 %] 0 % (08/19/16 11:23 AM) Basophils [0-2 %] 0 % (08/19/16 11:23 AM) Neutro Absolute 4.12 [1.90-7.00] (08/19/16 11:23 AM) Lymph Absolute 1.43 [0.80-3.30] (08/19/16:23 AM) Pettis Absolute 1.61 [0.30-1.00] *HI* (08/19/16 AM) Eos Absolute 0.01 [0.00-0.50] (08/19/16:23 AM) Baso Absolute 0.00 [0.00-0.20] (08/19/16 AM) Differential Scanned Slide (08/19/16 AM) 1Result Comment: Platelet count may be higher due to platelet clumping on smear. Chemistry Most recent to 1 oldest [Reference Range]: Sodium Lvl [135-144 142 mEq/L mEq/L] (08/19/16 AM) Potassium Lvl 4.2 mEq/L [3.5-5.2 mEq/L] (08/19/16 AM) Chloride [99-111 108 mEq/L mEq/L] (08/19/16 AM) CO2 [22-31 mEq/L] 22 mEq/L (08/19/16 AM) AGAP [3-20] 12 (08/19/16 AM) BUN [10-20 mg/dL] 37 mg/dL *HI* (08/19/16 AM) Glucose Lvl [70-99 94 mg/dL mg/dL] (08/19/16 AM) Creatinine Lvl 1.20 mg/dL [0.57-1.11 mg/dL] *HI* (08/19/16 AM) eGFR [>60 mL/min] 43 mL/min 1 *ABN* (08/19/16 AM) Calcium Lvl 9.3 mg/dL 2 [8.4-10.2 mg/dL] (08/19/16 AM) Albumin Lvl [3.4-4.8 4.4 gm/dL gm/dL] (08/19/16 AM) Total Protein 7.8 gm/dL [6.0-7.6 gm/dL] *HI* (08/19/16 AM) Globulin [1.8-4.0 3.4 gm/dL gm/dL] (08/19/16 11:23 AM) ALT [0-55 U/L] 12 U/L (08/19/16 11:23 AM) AST [5-34 U/L] 16 U/L (08/19/16 11:23 AM) Alk Phos [40-150 120 U/L U/L] (08/19/16 11:23 AM) Bili Total [0.2-1.2 0.3 mg/dL mg/dL] (08/19/16 11:23 AM) Uric Acid [2.6-6.0 4.1 mg/dL mg/dL] (08/19/16 11:23 AM) TSH [0.35-4.94] 2.89 (08/19/16 11:23 AM) 1Result Comment: Multiply eGFR results by 1.21 for race. 2Result Comment: Please note reference range change effective 08/05/2016. Immunizations Given and Recorded Vaccine Date Status Refusal Reason pneumococcal 13-valent conjugate vaccine 02/12/16 Given pneumococcal 13-valent conjugate vaccine1 11/01/13 Given pneumococcal 23-polyvalent vaccine 11/07/14 Given pneumococcal 23-polyvalent vaccine 11/01/13 Given tetanus-diphth toxoids (Td) adult/adol 09/05/08 Given zoster vaccine live 07/12/07 Given 1Result Comment: [03/24/2015 Uncharted] Uploaded in Error - CC Procedures Procedure Date Related Diagnosis Body Site Colonoscopy 03/04/16 Cataract extraction and insertion of 2013 intraocular lens1 Cataract extraction and insertion of 2013 intraocular lens2 Colonoscopy 2011 Colonoscopy - Hx polyps, tubular adenoma 05/21/10 Colonoscopy - Hx polyps, tubular adenoma 04/10/09 Colonoscopy - Hx polyps, polyp 09/26/08 Colonoscopy with biopsy3 08/24/07 Dilation and curettage 2001 Hysteroscopy 2001 digitalis toxicity 1990 Cholecystectomy 1974 Appendectomy 1973 section 1964 section 1963 Dilation and curettage 1954 Tubal [...] Patient Education Author: Joshua Dangelo MD Date: 08/19 Procedures Lymphedema Lymphedema is swelling that is caused by the abnormal collection of lymph under the skin. Lymph is fluid from the tissues in your body that travels in the lymphatic system. This system is part of the immune system and includes lymph nodes and lymph vessels. The lymph vessels collect and carry the excess fluid, fats, proteins, and wastes from the tissues of the body to the bloodstream. This system also works to clean and remove bacteria and waste products from the body. Lymphedema occurs when the lymphatic system is blocked. When the lymph vessels or lymph nodes are blocked or damaged, lymph does not drain properly, causing an abnormal buildup of lymph. This leads to swelling in the arms or legs. Lymphedema cannot be cured by medicines, but various methods can be used to help reduce the swelling. CAUSES There are two types of lymphedema. Primary lymphedema is caused by the absence or abnormality of the lymph vessel at . Secondary lymphedema is more common. It occurs when the lymph vessel is damaged or blocked. Common causes of lymph vessel blockage include: Skin infection, such as cellulitis. Infection by parasites (filariasis). Injury. Cancer. Radiation therapy. Formation of scar tissue. Surgery. SYMPTOMS Symptoms of this condition include: Swelling of the arm or leg. A heavy or tight feeling in the arm or leg. Swelling of the feet, toes, or fingers. Shoes or rings may fit more tightly than before. Redness of the skin over the affected area. Limited movement of the affected limb. Sensitivity to touch or discomfort in the affected limb. DIAGNOSIS This condition may be diagnosed with: A physical exam. Medical history. Imaging tests, such as: Lymphoscintigraphy. In this test, a low dose of a radioactive substance is injected to trace the flow of lymph through the lymph vessels. MRI. CT scan. Duplex ultrasound. This test uses sound waves to produce images of the vessels and the blood flow on a screen. Lymphangiography. In this test, a contrast dye is injected into the lymph vessel to help show blockages. TREATMENT Treatment for this condition may depend on the cause. Treatment may include: Exercise. Certain exercises can help fluid move out of the affected limb. Massage. Gentle massage of the affected limb can help move the fluid out of the area. Compression. Various methods may be used to apply pressure to the affected limb in order to reduce the swelling. Wearing compression stockings or sleeves on the affected limb. Bandaging the affected limb. Using an external pump that is attached to a sleeve that alternates between applying pressure and releasing pressure. Surgery. This is usually only done for severe cases. For example, surgery may be done if you have trouble moving the limb or if the swelling does not get better with other treatments. If an underlying condition is causing the lymphedema, treatment for that condition is needed. For example, antibiotic medicines may be used to treat an infection. HOME CARE INSTRUCTIONS Activities Exercise regularly as directed by your health care provider. Do not sit with your legs crossed. When possible, keep the affected limb raised (elevated) above the level of your heart. Avoid carrying things with an arm that is affected by lymphedema. Remember that the affected area is more likely to become injured or infected. Take these steps to help prevent infection: Keep the affected area clean and dry. Protect your skin from cuts. For example, you should use gloves while cooking or gardening. Do not walk barefoot. If you shave the affected area, use an electric razor. General Instructions Take medicines only as directed by your health care provider. Eat a healthy diet that includes a lot of fruits and vegetables. Do not wear tight clothes, shoes, or jewelry. Do not use heating pads over the affected area. Avoid having blood pressure checked on the affected limb. Keep all follow-up visits as directed by your health care provider. This is important. SEEK MEDICAL CARE IF: You continue to have swelling in your limb. You have a fever. You have a cut that does not heal. You have redness or pain in the affected area. You have new swelling in your limb that comes on suddenly. You develop purplish spots or sores (lesions) on your limb. SEEK IMMEDIATE MEDICAL CARE IF: You have a skin rash. You have chills or sweats. You have shortness of breath. This information is not intended to replace advice given to you by your health care provider. Make sure you discuss any questions you have with your health care provider. Document Released: 04/15/2008 Document Revised: 11/03/2015 Document Reviewed: [employer] Patient Education 2016 [employer] No follow up information was provided. Extracted from: Title: multiple problems Author: Joshua Dangelo MD Date: 08/19/16 Impression and Plan Diagnosis CLARISSA on CPAP (TCL99-RV G47.33, Discharge, Medical). Benign essential hypertension (EBM08-FY I10, Discharge, Medical). Primary hypercholesterolemia (VLC42-BM E78.0, Discharge, Medical). Lymphedema of leg (YNN79-AM I89.0, Discharge, Medical). Morbid obesity (ZXH49-EQ E66.01, Discharge, Medical). Osteoarthritis of both knees (UHN71-IZ M17.0, Discharge, Medical). Pernicious anemia (LPG67-DN D51.0, Discharge, Medical). Chronic gout (EFU78-MB M10.00, Discharge, Medical). Chronic kidney disease (CKD), stage III (moderate) (RIY51-WR N18.3, Discharge, Medical). Adult hypothyroidism (QMI60-VZ E03.9, Discharge, Medical). Tension headache (SDN97-OG G44.209, Discharge, Medical). Thrombocytopenia (ZGE40-IJ D69.6, Discharge, Medical). Plan: 1) Lab ordered today. 2) CXR ordered today. 3) PT consult ordered, per your request for a manual wheelchair to use PRN at home and outside home. 4) Script provided for an electric hospital bed. 5) Continue your current meds. 6) Check your BP at home and call us the results weekly. 7) See me in 3-4 months for your BP and as needed. . Orders Orders (Selected) Outpatient Orders Ordered Office Visit Level 5 Est 29841: Discontinued Office Visit Level 4 Est 19077: Future (On Hold) CBC w/ Differential: CMP: Chest XR 2 Views: NT-Pro BNP-[place]: TSH 3rd Generation: TSH 3rd Generation: Uric Acid: Vitamin D 25 OH: . Dx/Order Association Plan: Diagnosis: Adult hypothyroidism Comment: Discontinued: Office Visit Level 4 Est 96012; 08/19/16 10:18:00 QUALITY SYSTEMS SPECIALIST, Lymphedema of leg | CLARISSA on CPAP | Chronic kidney disease (CKD), stage III ( moderate) | Benign essential hypertension | Adult hypothyroidism | Chronic gout | Tension headache | Thrombocytopenia | Fatigue | Pernicious anemia | Ost... Diagnosis: Benign essential hypertension Comment: Ordered: Office Visit Level 5 Est 34552; 08/19/16 10:35:00 QUALITY SYSTEMS SPECIALIST, Orthopnea | Benign essential hypertension | Lymphedema of leg | Chronic kidney disease (CKD), stage III (moderate) | Osteoarthritis of both knees | Pernicious anemia | CLARISSA on CPAP | Primary hypercholesterolemia | Thrombocytopeni... Discontinued: Office Visit Level 4 Est [id number]; 08/19/16 10:18:00 QUALITY SYSTEMS SPECIALIST, Lymphedema of leg | CLARISSA on CPAP | Chronic kidney disease (CKD), stage III ( moderate) | Benign essential hypertension | Adult hypothyroidism | Chronic gout | Tension headache | Thrombocytopenia | Fatigue | Pernicious anemia | Ost... Diagnosis: Chronic gout Comment: Ordered: Office Visit Level 5 Est [id number]; 08/19/16 10:35:00 QUALITY SYSTEMS SPECIALIST, Orthopnea | Benign essential hypertension | Lymphedema of leg | Chronic kidney disease (CKD), stage III (moderate) | Osteoarthritis of both knees | Pernicious anemia | CLARISSA on CPAP | Primary hypercholesterolemia | Thrombocytopeni... Discontinued: Office Visit Level 4 Est [id number]; 08/19/16 10:18:00 QUALITY SYSTEMS SPECIALIST, Lymphedema of leg | CLARISSA on CPAP | Chronic kidney disease (CKD), stage III ( moderate) | Benign essential hypertension | Adult hypothyroidism | Chronic gout | Tension headache | Thrombocytopenia | Fatigue | Pernicious anemia | Ost... Diagnosis: Chronic kidney disease (CKD), stage III (moderate) Comment: Ordered: Office Visit Level 5 Est [id number]; 08/19/16 10:35:00 QUALITY SYSTEMS SPECIALIST, Orthopnea | Benign essential hypertension | Lymphedema of leg | Chronic kidney disease (CKD), stage III (moderate) | Osteoarthritis of both knees | Pernicious anemia | CLARISSA on CPAP | Primary hypercholesterolemia | Thrombocytopeni... Discontinued: Office Visit Level 4 Est 42165; 08/19/16 10:18:00 QUALITY SYSTEMS SPECIALIST, Lymphedema of leg | CLARISSA on CPAP | Chronic kidney disease (CKD), stage III ( moderate) | Benign essential hypertension | Adult hypothyroidism | Chronic gout | Tension headache | Thrombocytopenia | Fatigue | Pernicious anemia | Ost... Diagnosis: Fatigue Comment: Ordered: Office Visit Level 5 Est 29872; 08/19/16 10:35:00 QUALITY SYSTEMS SPECIALIST, Orthopnea | Benign essential hypertension | Lymphedema of leg | Chronic kidney disease (CKD), stage III (moderate) | Osteoarthritis of both knees | Pernicious anemia | CLARISSA on CPAP | Primary hypercholesterolemia | Thrombocytopeni... Discontinued: Office Visit Level 4 Est 95702; 08/19/16 10:18:00 QUALITY SYSTEMS SPECIALIST, Lymphedema of leg | CLARISSA on CPAP | Chronic kidney disease (CKD), stage III ( moderate) | Benign essential hypertension | Adult hypothyroidism | Chronic gout | Tension headache | Thrombocytopenia | Fatigue | Pernicious anemia | Ost... Diagnosis: Lymphedema of leg Comment: Ordered: Office Visit Level 5 Est 14480; 08/19/16 10:35:00 QUALITY SYSTEMS SPECIALIST, Orthopnea | Benign essential hypertension | Lymphedema of leg | Chronic kidney disease (CKD), stage III (moderate) | Osteoarthritis of both knees | Pernicious anemia | CLARISSA on CPAP | Primary hypercholesterolemia | Thrombocytopeni... Discontinued: Office Visit Level 4 Est [id number]; 08/19/16 10:18:00 QUALITY SYSTEMS SPECIALIST, Lymphedema of leg | CLARISSA on CPAP | Chronic kidney disease (CKD), stage III ( moderate) | Benign essential hypertension | Adult hypothyroidism | Chronic gout | Tension headache | Thrombocytopenia | Fatigue | Pernicious anemia | Ost... Diagnosis: Morbid obesity Comment: Diagnosis: CLARISSA on CPAP Comment: Ordered: Office Visit Level 5 Est [id number]; 08/19/16 10:35:00 QUALITY SYSTEMS SPECIALIST, Orthopnea | Benign essential hypertension | Lymphedema of leg | Chronic kidney disease (CKD), stage III (moderate) | Osteoarthritis of both knees | Pernicious anemia | CLARISSA on CPAP | Primary hypercholesterolemia | Thrombocytopeni... Discontinued: Office Visit Level 4 Est 60517; 08/19/16 10:18:00 QUALITY SYSTEMS SPECIALIST, Lymphedema of leg | CLARISSA on CPAP | Chronic kidney disease (CKD), stage III ( moderate) | Benign essential hypertension | Adult hypothyroidism | Chronic gout | Tension headache | Thrombocytopenia | Fatigue | Pernicious anemia | Ost... Diagnosis: Orthopnea Comment: Ordered: Office Visit Level 5 Est 18800; 08/19/16 10:35:00 QUALITY SYSTEMS SPECIALIST, Orthopnea | Benign essential hypertension | Lymphedema of leg | Chronic kidney disease (CKD), stage III (moderate) | Osteoarthritis of both knees | Pernicious anemia | CLARISSA on CPAP | Primary hypercholesterolemia | Thrombocytopeni... Diagnosis: Osteoarthritis of both knees Comment: Ordered: Office Visit Level 5 Est [id number]; 08/19/16 10:35:00 QUALITY SYSTEMS SPECIALIST, Orthopnea | Benign essential hypertension | Lymphedema of leg | Chronic kidney disease (CKD), stage III (moderate) | Osteoarthritis of both knees | Pernicious anemia | CLARISSA on CPAP | Primary hypercholesterolemia | Thrombocytopeni... Discontinued: Office Visit Level 4 Est 73907; 08/19/16 10:18:00 QUALITY SYSTEMS SPECIALIST, Lymphedema of leg | CLARISSA on CPAP | Chronic kidney disease (CKD), stage III ( moderate) | Benign essential hypertension | Adult hypothyroidism | Chronic gout | Tension headache | Thrombocytopenia | Fatigue | Pernicious anemia | Ost... Diagnosis: Pernicious anemia Comment: Ordered: Office Visit Level 5 Est 33232; 08/19/16 10:35:00 QUALITY SYSTEMS SPECIALIST, Orthopnea | Benign essential hypertension | Lymphedema of leg | Chronic kidney disease (CKD), stage III (moderate) | Osteoarthritis of both knees | Pernicious anemia | CLARISSA on CPAP | Primary hypercholesterolemia | Thrombocytopeni... Discontinued: Office Visit Level 4 Est 27456; 08/19/16 10:18:00 QUALITY SYSTEMS SPECIALIST, Lymphedema of leg | CLARISSA on CPAP | Chronic kidney disease (CKD), stage III ( moderate) | Benign essential hypertension | Adult hypothyroidism | Chronic gout | Tension headache | Thrombocytopenia | Fatigue | Pernicious anemia | Ost... Diagnosis: Primary hypercholesterolemia Comment: Ordered: Office Visit Level 5 Est [id number]; 08/19/16 10:35:00 QUALITY SYSTEMS SPECIALIST, Orthopnea | Benign essential hypertension | Lymphedema of leg | Chronic kidney disease (CKD), stage III (moderate) | Osteoarthritis of both knees | Pernicious anemia | CLARISSA on CPAP | Primary hypercholesterolemia | Thrombocytopeni... Discontinued: Office Visit Level 4 Est 05817; 08/19/16 10:18:00 QUALITY SYSTEMS SPECIALIST, Lymphedema of leg | CLARISSA on CPAP | Chronic kidney disease (CKD), stage III ( moderate) | Benign essential hypertension | Adult hypothyroidism | Chronic gout | Tension headache | Thrombocytopenia | Fatigue | Pernicious anemia | Ost... Diagnosis: Tension headache Comment: Ordered: Office Visit Level 5 Est 83593; 08/19/16 10:35:00 QUALITY SYSTEMS SPECIALIST, Orthopnea | Benign essential hypertension | Lymphedema of leg | Chronic kidney disease (CKD), stage III (moderate) | Osteoarthritis of both knees | Pernicious anemia | CLARISSA on CPAP | Primary hypercholesterolemia | Thrombocytopeni... Discontinued: Office Visit Level 4 Est 85500; 08/19/16 10:18:00 QUALITY SYSTEMS SPECIALIST, Lymphedema of leg | CLARISSA on CPAP | Chronic kidney disease (CKD), stage III ( moderate) | Benign essential hypertension | Adult hypothyroidism | Chronic gout | Tension headache | Thrombocytopenia | Fatigue | Pernicious anemia | Ost... Diagnosis: Thrombocytopenia Comment: Ordered: Office Visit Level 5 Est 42144; 08/19/16 10:35:00 QUALITY SYSTEMS SPECIALIST, Orthopnea | Benign essential hypertension | Lymphedema of leg | Chronic kidney disease (CKD), stage III (moderate) | Osteoarthritis of both knees | Pernicious anemia | CLARISSA on CPAP | Primary hypercholesterolemia | Thrombocytopeni... Discontinued: Office Visit Level 4 Est [id number]; 08/19/16 10:18:00 QUALITY SYSTEMS SPECIALIST, Lymphedema of leg | CLARISSA on CPAP | Chronic kidney disease (CKD), stage III ( moderate) | Benign essential hypertension | Adult hypothyroidism | Chronic gout | Tension headache | Thrombocytopenia | Fatigue | Pernicious anemia | Ost... Diagnosis: Chronic gout Comment: Diagnosis: Fatigue Comment: Diagnosis: Adult hypothyroidism Comment: Diagnosis: Fatigue Comment: Diagnosis: Thrombocytopenia Comment: Diagnosis: Pernicious anemia Comment: Diagnosis: Fatigue Comment: Diagnosis: Lymphedema of leg Comment: Diagnosis: Orthopnea Comment: Diagnosis: Benign essential hypertension Comment: Diagnosis: Lymphedema of leg Comment: Diagnosis: Orthopnea Comment: Diagnosis: Benign essential hypertension Comment: Diagnosis: Fatigue Comment: Diagnosis: Lymphedema of leg Comment: Diagnosis: Primary hypercholesterolemia Comment: Diagnosis: Chronic kidney disease (CKD), stage III (moderate) Comment: End of Orders ."
--- OUTSIDE RECORDS SUMMARY | 2016-10-08 15:26 | XMS REPORT | Referral Summary ---
Author Author [facility] [employer] Organization [facility] [employer] Address Unknown Phone Unavailable Care Team Providers Care Ldr Rn Name Role Phone Ricco Dangelo Primary Care Physician [phone] Encounter Date(s): 12/14/15 - 12/14/15 [facility] [employer] [address] [place], [place] [address] Discharge Disposition: 01-Home or Self Care Attending Physician: Emiliana Jean Admitting Physician: Emiliana Jean Vital Signs No data available for this section Problem List Condition Effective Dates Status Health Status Informant Anemia(Confirmed) Active arthritis(Confirmed) Resolved At high risk for Active pneumonia(Confirmed) Benign essential Active hypertension(Confirm ed) Bladder 1990 Active problem(Confirmed) Sleep related Active [...] sleep apnea)(Confirmed) Osteoarthritis, Active hands(Confirmed) Osteoarthritis lower 1989 Active leg(Confirmed) Osteoarthritis of Active both knees(Confirmed) Peripheral Active edema(Confirmed) Pernicious Active anemia(Confirmed) Thrombocytopenia(Con Active firmed) Chronic Active gout(Confirmed) Primary Active hypercholesterolemia (Confirmed) Rosacea(Confirmed) Active Tubular Active adenoma(Confirmed) Villoglandular 2008 Active colonic polyp(Confirmed) Villoglandular 2009 Active colonic polyp(Confirmed) Villoglandular 2010 Active colonic polyp(Confirmed) Visual Active problems(Confirmed) Allergies, Adverse Reactions, Alerts Substance Reaction Severity Status Bactrim Active Mupirocin Calcium rash Active sulfamethoxazole rash all over Active trimethoprim rash all over Active Medications allopurinol 300 mg oral tablet See Instructions, TAKE ONE TABLET BY MOUTH ONCE A DAY, # 30 tabs, 2 Refill(s), eRx: [facility] #[id number], TAKE ONE TABLET BY MOUTH ONCE A DAY Start Date: 11/23/15 Status: Ordered Crestor 10 mg oral tablet See Instructions, TAKE ONE TABLET BY MOUTH AT BEDTIME, # 90 tabs, eRx: [facility] #[id number], TAKE ONE TABLET BY MOUTH AT BEDTIME Start Date: 10/02/15 Status: Ordered famotidine 20 mg oral tablet See Instructions, TAKE ONE TABLET BY MOUTH TWICE A DAY, # 60 tabs, 2 Refill(s), eRx: [facility] #[id number], TAKE ONE TABLET BY MOUTH TWICE A DAY Start Date: 12/03/15 Status: Ordered fluticasone nasal 2 sprays, Nasal, Daily, as needed for allergy symptoms, 0 Refill(s) Start Date: 12/25/13 Status: Ordered furosemide 80 mg oral tablet See Instructions, TAKE ONE-HALF TABLET BY MOUTH EVERY DAY, # 30 tabs, 3 Refill(s ), eRx: [facility] #[id number], TAKE ONE-HALF TABLET BY MOUTH EVERY DAY Start Date: 05/18/15 Status: Ordered hydrocortisone 2.5% topical cream See Instructions, APPLY VERY LIGHTLY TO FACIAL RASH TWO TIMES A DAY NEEDED, # 30 unknown unit, eRx: [facility] #[id number], APPLY VERY LIGHTLY TO FACIAL RASH TWO TIMES A DAY NEEDED Start Date: 12/19/14 Status: Ordered levothyroxine 25 mcg (0.025 mg) oral tablet See Instructions, TAKE ONE TABLET BY MOUTH DAILY, # 30 tabs, 6 Refill(s), eRx: [facility] #[id number], TAKE ONE TABLET BY MOUTH DAILY Start Date: 12/09/15 Status: Ordered Metafolbic Plus oral tablet See Instructions, TAKE ONE TABLET BY MOUTH DAILY, # 30 tabs, 1 Refill(s), eRx: [facility] #[id number], TAKE ONE TABLET BY MOUTH DAILY Start Date: 11/09/15 Status: Ordered pyridoxine 100 mg oral tablet 1 tabs, Oral, Daily, 0 Refill(s) Start Date: 12/25/13 Status: Ordered spironolactone 100 mg oral tablet See Instructions, TAKE ONE TABLET BY MOUTH EVERY DAY., # 30 tabs, 9 Refill(s), eRx: [facility] #[id number], TAKE ONE TABLET BY MOUTH EVERY DAY. Start Date: 12/17/14 Status: Ordered traMADol 50 mg oral tablet 50 mg 1 tabs, Oral, q6hr, as needed for pain, [place] Lindsey, # 60 tabs, 0 Refill(s) Start Date: 11/09/15 Status: Ordered Vitamin D with Minerals oral [...]
--- OUTSIDE RECORDS SUMMARY | 2016-10-08 15:26 | XMS REPORT | Referral Summary ---
Author Author [facility] [place] Organization [facility] Address Unknown Phone Unavailable Care Team Providers Care Aerospace Stress Engineer Name Role Phone Ricco Dangelo Primary Care Physician [phone] Encounter VC Date(s): 12/01/14 - 12/01/14 [facility] [place], [address] [place] [id number] Discharge Disposition: 01-Home or Self Care Attending Physician: Joshua Dangelo MD Admitting Physician: Joshua Dangelo MD Vital Signs Most recent to 1 oldest [Reference Range]: Temperature Oral 37.3 degC [35.8-37.3 degC] (12/01/14 1:41 PM) Peripheral Pulse 72 bpm Rate [60-100 bpm] (12/01/14 1:41 PM) Blood Pressure 152/80 mmHg [90-140/60-90 mmHg] *HI* (12/01/14 1:41 PM) Problem List Condition Effective Dates Status Health [...] DAY, # 30 tabs, 2 Refill(s), eRx: [facility] #[id number], TAKE ONE TABLET BY MOUTH ONCE A DAY Start Date: 04/20/15 Status: Ordered Crestor 10 mg oral tablet See Instructions, TAKE ONE TABLET BY MOUTH AT BEDTIME, # 90 tabs, 2 Refill(s), eRx: [facility] #[id number], TAKE ONE TABLET BY MOUTH AT BEDTIME Start Date: 12/05/14 Status: Ordered famotidine 20 mg oral tablet See Instructions, TAKE ONE TABLET BY MOUTH TWICE A DAY, # 60 tabs, 10 Refill(s) , eRx: [facility] #[id number], TAKE ONE TABLET BY MOUTH TWICE A DAY Start Date: 11/14/14 Status: Ordered fluticasone nasal 2 sprays, Nasal, Daily, as needed for allergy symptoms, 0 Refill(s) Start Date: 12/25/13 Status: Ordered furosemide 80 mg oral tablet See Instructions, TAKE ONE-HALF TABLET BY MOUTH EVERY DAY, # 30 tabs, 3 Refill(s ), eRx: [facility] #[id number], TAKE ONE-HALF TABLET BY MOUTH EVERY DAY Start Date: 05/18/15 Status: Ordered hydrocortisone 2.5% topical cream See Instructions, APPLY VERY LIGHTLY TO FACIAL RASH TWO TIMES A DAY NEEDED, # 30 unknown unit, eRx: [facility] #[id number], APPLY VERY LIGHTLY TO FACIAL RASH TWO TIMES A DAY NEEDED Start Date: 12/19/14 Status: Ordered hydrocortisone 2.5% topical cream soniya, Topical, BID, apply very lightly to facial rash twice daily as needed, 0 Refill(s) Start Date: 12/25/13 Status: Ordered levothyroxine 25 mcg (0.025 mg) oral tablet See Instructions, TAKE ONE TABLET BY MOUTH DAILY, # 30 tabs, 4 Refill(s), eRx: [facility] #[id number], TAKE ONE TABLET BY MOUTH DAILY Start Date: 02/23/15 Status: Ordered Metafolbic Plus oral tablet See Instructions, TAKE ONE TABLET BY MOUTH DAILY, # 30 tabs, 10 Refill(s), eRx: [facility] #[id number], TAKE ONE TABLET BY MOUTH DAILY Start Date: 11/14/14 Status: Ordered pyridoxine 100 mg oral tablet 1 tabs, Oral, Daily, 0 Refill(s) Start Date: 12/25/13 Status: Ordered spironolactone 100 mg oral tablet See Instructions, TAKE ONE TABLET BY MOUTH EVERY DAY., # 30 tabs, 9 Refill(s), eRx: [facility] #[id number], TAKE ONE TABLET BY MOUTH EVERY DAY. Start Date: 12/17/14 Status: Ordered traMADol 50 mg oral tablet 50 mg 1 tabs, Oral, q6hr, as needed for pain, Newton Lindsey, # 60 tabs, 2 Refill(s) Start Date: 02/06/15 Status: Ordered Vitamin D with Minerals oral [...] biopsy3 08/24/07 Dilation and curettage 2001 Hysteroscopy 2002 digitalis toxicity 1991 Cholecystectomy 1974 Appendectomy 1974 section 1965 section 1963 Dilation and curettage [...] Patient Education Author: Joshua Dangelo MD Date: Family Medicine Lymphedema Lymphedema is a swelling caused by the abnormal collection of lymph under the skin. The lymph is fluid from the tissues in your body that travels in the lymphatic system. This system is part of the immune system that includes lymph nodes and vessels. The lymph vessels collect and carry the excess fluid, fats, proteins, and wastes from the tissues of the body to the bloodstream. This system also works to clean and remove bacteria and waste products from the body. Lymphedema occurs when the lymphatic system is blocked. When the lymph vessels or lymph nodes are blocked or damaged, lymph does not drain properly. This causes abnormal build up of lymph. This leads to swelling in the arms or legs. Lymphedema cannot be cured by medicines. But the swelling can be reduced by physical methods. CAUSES There are two types of lymphedema. Primary lymphedema is caused by the absence or abnormality of the lymph vessel at . It is also known as inherited lymphedema, which occurs rarely. Secondary or acquired lymphedema occurs when the lymph vessel is damaged or blocked. The causes of lymph vessel blockage are : Skin infection like cellulites. Infection by parasites (filariasis ). Injury. Cancer. Radiation therapy. Formation of scar tissue. Surgery. SYMPTOMS The symptoms of lymphedema are: Abnormal swelling of the arm or leg. Heavy or tight feeling in your arm or leg. Tight-fitting shoes or rings. Redness of skin over the affected area. Limited movement of the affected limb. Some patients complain about sensitivity to touch and discomfort in the limb(s) affected. You may not have these symptoms immediately following injury. They usually appear within a few days or even years after injury. Inform your caregiver, if you have any of these symptoms. Early treatment can avoid further problems. DIAGNOSIS First, your caregiver will inquire about any surgery you have had or medicines you are taking. He will then examine you. Your caregiver may order special imaging tests, such as: Lymphoscintigraphy (a test in which a low dose of radioactive substance is injected to trace the flow of lymph through the lymph vessels). MRI (imaging tests using magnetic olivarez). Computed tomography (test using special cross-sectional X-rays). Duplex ultrasound (test using high-frequency sound waves to show the vessels and the blood flow on a screen). Lymphangiography (special X-ray taken after injecting a contrast dye into the lymph vessel). It is now rarely done. TREATMENT Lymphedema can be treated in different ways. Your caregiver will decide the type of treatment depending on the cause. Treatment may include: Exercise: Special exercises will help fluid move out easily from the affected part. This should be done as per your caregiver's advice. Manual lymph drainage: Gentle massage of the affected limb makes the fluid to move out more freely. Compression: Compression stockings or external pump apply pressure over the affected limb. This helps the fluid to move out from the arm or leg. Bandaging can also help to move the fluid out from the affected part. Your caregiver will decide the method that suits you the best. Medicines: Your caregiver may prescribe antibiotics, if you have infection. Surgery: Your caregiver may advise surgery for severe lymphedema. It is reserved for special cases when the patient has difficulty moving. Your surgeon may remove excess tissue from the arm or leg. This will help to ease your movement. Physical therapy may have to be continued after surgery. HOME CARE INSTRUCTIONS The area is very fragile and is predisposed to injury and infection. Eat a healthy diet. Exercise regularly as per advice. Keep the affected area clean and dry. Use gloves while cooking or gardening. Protect your skin from cuts. Use electric razor to shave the affected area. Keep affected limb elevated. Do not wear tight clothes, shoes, or jewelry as it may cause the tissue to be strangled. Do not use heat pads over the affected area. Do not sit with cross legs. Do not walk barefoot. Do not carry weight on the affected arm. Avoid having blood pressure checked on the affected limb. SEEK MEDICAL CARE IF: You continue to have swelling in your limb. SEEK IMMEDIATE MEDICAL CARE IF: You have high fever. You have skin rash. You have chills or sweats. You have pain or redness. You have a cut that does not heal. MAKE SURE YOU: Understand these instructions. Will watch your condition. Will get help right away if you are not doing well or get worse. Document Released: 04/15/2008 Document Revised: 06/05/2013 Document Reviewed: [facility] Patient Information 2014 [employer]. Osteoarthritis Osteoarthritis is a disease that causes soreness and swelling (inflammation ) of a joint. It occurs when the cartilage at the affected joint wears down. Cartilage acts as a cushion, covering the ends of bones where they meet to form a joint. Osteoarthritis is the most common form of arthritis. It often occurs in older people. The joints affected most often by this condition include those in the: Ends of the fingers. Thumbs. Neck. Lower back. Knees. Hips. CAUSES Over time, the cartilage that covers the ends of bones begins to wear away. This causes bone to rub on bone, producing pain and stiffness in the affected joints. RISK FACTORS Certain factors can increase your chances of having osteoarthritis, including: Older age. Excessive body weight. Overuse of joints. SIGNS AND SYMPTOMS Pain, swelling, and stiffness in the joint. Over time, the joint may lose its normal shape. Small deposits of bone (osteophytes ) may grow on the edges of the joint. Bits of bone or cartilage can break off and float inside the joint space. This may cause more pain and damage. DIAGNOSIS Your health care provider will do a physical exam and ask about your symptoms. Various tests may be ordered, such as: X-rays of the affected joint. An MRI scan. Blood tests to rule out other types of arthritis. Joint fluid tests. This involves using a needle to draw fluid from the joint and examining the fluid under a microscope. TREATMENT Goals of treatment are to control pain and improve joint function. Treatment plans may include: A prescribed exercise program that allows for rest and joint relief. A weight control plan. Pain relief techniques, such as: Properly applied heat and cold. Electric pulses delivered to nerve endings under the skin (transcutaneous electrical nerve stimulation, TENS ). Massage. Certain nutritional supplements. Medicines to control pain, such as: Acetaminophen. Nonsteroidal anti-inflammatory drugs (NSAIDs), such as naproxen. Narcotic or central-acting agents, such as tramadol. Corticosteroids. These can be given orally or as an injection. Surgery to reposition the bones and relieve pain (osteotomy ) or to remove loose pieces of bone and cartilage. Joint replacement may be needed in advanced states of osteoarthritis. HOME CARE INSTRUCTIONS Only take [id number] or prescription medicines as directed by your health care provider. Take all medicines exactly as instructed. Maintain a healthy weight. Follow your health care provider's instructions for weight control. This may include dietary instructions. Exercise as directed. Your health care provider can recommend specific types of exercise. These may include: Strengthening exercisesThese are done to strengthen the muscles that support joints affected by arthritis. They can be performed with weights or with exercise bands to add resistance. Aerobic activitiesThese are exercises, such as brisk walking or low- impact aerobics, that get your heart pumping. Qjeug-rr-vhmxup activitiesThese keep your joints limber. Balance and agility exercisesThese help you maintain daily living skills. Rest your affected joints as directed by your health care provider. Follow up with your health care provider as directed. SEEK MEDICAL CARE IF: Your skin turns red. You develop a rash in addition to your joint pain. You have worsening joint pain. SEEK IMMEDIATE MEDICAL CARE IF: You have a significant loss of weight or appetite. You have a fever along with joint or muscle aches. You have night sweats. FOR MORE INFORMATION National [employer] of Arthritis and Musculoskeletal and Skin Diseases: www.niams.nih.gov National [employer] on Aging: www.jaimie.nih.gov [employer]: www.rheumatology.org Document Released: 06/19/2006 Document Revised: 04/09/2014 Document Reviewed: [employer] Patient Information 2014 [facility]. No follow up information was provided. Extracted from: Title: morbid obesity, arthritis of Author: Joshua Dangelo MD Date: the knees Impression and Plan Diagnosis Benign essential hypertension (ICD9 401.1, Working, Medical). Chronic kidney disease (CKD), stage III (moderate) (ICD9 585.3, Working, Medical ). Lymphedema of leg (ICD9 457.1, Working, Medical). Morbid obesity (ICD9 278.01, Working, Medical). CLARISSA (obstructive sleep apnea) (ICD9 327.23, Working, Medical). Osteoarthritis of both knees (ICD9 715.96, Working, Medical). 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 Plan: I recommend the use of an electric wheelchair on bad days, when your right knee is hurting and your hands are hurting too much to use the manual wheelchair or the cane, for walking in your home to the bedroom, bathroom, or kitchen for all of these ADLs. Currently this is 2-3 days/week, and may become more often if your condition worsens. , A scooter would not likely work, due to the large tuning radius required, since your home has limited space., Continue your current meds. See me in December, as scheduled.. Orders Orders (Selected) Outpatient Orders Ordered Office Visit Level 5 Est 41791: Canceled (Exam Replaced) XR Knee 3 Views Bilateral: Completed XR Knee 1 or 2 Views Bilateral: Future (On Hold) CBC w/ Differential: CBC w/ Differential: CBC w/ Differential: CBC w/ Differential: TSH 3rd Generation: . Dx/Order Association Plan: Diagnosis: Benign essential hypertension Comment: Ordered: Office Visit Level 5 Est [id number]; 12/01/14 15:04:00 CDT, Osteoarthritis of both knees | Osteoarthritis of hand | Morbid obesity | CLARISSA ( obstructive sleep apnea) | Lymphedema of leg Diagnosis: Chronic kidney disease (CKD), stage III (moderate) Comment: Ordered: Office Visit Level 5 Est [id number]; 12/01/14 15:04:00 CDT, Osteoarthritis of both knees | Osteoarthritis of hand | Morbid obesity | CLARISSA ( obstructive sleep apnea) | Lymphedema of leg Diagnosis: Lymphedema of leg Comment: Ordered: Office Visit Level 5 Est [id number]; 12/01/14 15:04:00 CDT, Osteoarthritis of both knees | Osteoarthritis of hand | Morbid obesity | CLARISSA ( obstructive sleep apnea) | Lymphedema of leg Diagnosis: Morbid obesity Comment: Ordered: Office Visit Level 5 Est [id number]; 12/01/14 15:04:00 CDT, Osteoarthritis of both knees | Osteoarthritis of hand | Morbid obesity | CLARISSA ( obstructive sleep apnea) | Lymphedema of leg Diagnosis: CLARISSA (obstructive sleep apnea) Comment: Ordered: Office Visit Level 5 Est [id number]; 12/01/14 15:04:00 CDT, Osteoarthritis of both knees | Osteoarthritis of hand | Morbid obesity | CLARISSA ( obstructive sleep apnea) | Lymphedema of leg Diagnosis: Osteoarthritis of both knees Comment: Ordered: Office Visit Level 5 Est [id number]; 12/01/14 15:04:00 CDT, Osteoarthritis of both knees | Osteoarthritis of hand | Morbid obesity | CLARISSA ( obstructive sleep apnea) | Lymphedema of leg Other status: XR Knee 3 Views Bilateral; 12/01/14 14:23:00 CDT, Routine, Stop date 12/01/14 14:23:00 CDT, Reason: Pain in joint, knee, Osteoarthritis of both knees (Canceled) Diagnosis: Osteoarthritis of hand Comment: Ordered: Office Visit Level 5 Est [id number]; 12/01/14 15:04:00 CDT, Osteoarthritis of both knees | Osteoarthritis of hand | Morbid obesity | CLARISSA ( obstructive sleep apnea) | Lymphedema of leg End of Orders ."
--- OUTSIDE RECORDS SUMMARY | 2016-10-08 15:27 | XMS REPORT | Referral Summary ---
Author Organization Unknown Address Unknown Phone Unavailable Care Team Providers Care System Technologist Name Role Phone Ricco Dangelo Primary Care Physician [phone] Encounter VC Date(s): 10/24/14 - 10/24/14 [facility] [place] [place] [id number]- Discharge Diagnosis: Pernicious anemia Discharge Diagnosis: Visit for screening mammogram Discharge Diagnosis: High cholesterol Discharge Diagnosis: Benign essential hypertension Discharge Diagnosis: CLARISSA (obstructive sleep apnea) Discharge Diagnosis: Osteoarthritis lower leg Discharge Diagnosis: Thrombocytopenia Discharge Diagnosis: At high risk for pneumonia Discharge Diagnosis: Lymphedema of leg Discharge Diagnosis: Chronic kidney disease (CKD), stage III (moderate) Discharge Diagnosis: Morbid obesity Discharge Disposition: Home or Self Care Attending Physician: Joshua Dangelo MD Admitting Physician: Joshua Dangelo MD Vital Signs Most recent to 1 oldest [Reference Range]: Temperature Tympanic 36.8 degC [36.6-38.1 degC] (10/24/14 8:56 AM) Peripheral Pulse 76 bpm Rate [60-100 bpm] (10/24/14 8:56 AM) Blood Pressure 136/80 mmHg [90-140/60-90 mmHg] (10/24/14 8:56 AM) Problem List Condition Effective Dates Status Health Status Informant Anemia(Confirmed) Active arthritis(Confirmed) Resolved At high risk for Active pneumonia(Confirmed) Benign essential Active hypertension(Confirm ed) Bladder 1990 Active problem(Confirmed) Chicken 1944 Active pox(Confirmed) Chronic kidney Active disease (CKD), stage III (moderate)(Confirmed ) Congestive heart Active failure(Confirmed) Constipation - Active occasionally(Confirm ed) Digitalis 1990 Active toxicity(Confirmed) polyps(Confirmed) Active Chronic Active gout(Confirmed) Headaches - Active tension(Confirmed) High Active cholesterol(Confirme d) hyperlipidemia(Confi Resolved rmed) hypertension(Confirm Resolved ed) Insomnia(Confirmed) Active Kidney Active disease(Confirmed) Kidney Active [...] Instructions, TAKE ONE TABLET BY MOUTH EVERY DAY, # 30 tabs, 11 Refill(s), Pharmacy: [facility] #[id number], TAKE ONE TABLET BY MOUTH EVERY DAY Special Instructions: TAKE ONE TABLET BY MOUTH EVERY DAY Start Date: 01/24/14 Status: Ordered Crestor 10 mg oral tablet 1 tabs, Oral, Bedtime (once a day), 0 Refill(s) Start Date: 12/25/13 Status: Ordered famotidine 20 mg oral tablet See Instructions, TAKE ONE TABLET BY MOUTH TWICE A DAY, # 60 tabs, 5 Refill(s), eRx: [facility] #[id number], TAKE ONE TABLET BY MOUTH TWICE A DAY Special Instructions: TAKE ONE TABLET BY MOUTH TWICE A DAY Start Date: 05/15/14 Status: Ordered fluticasone nasal 2 sprays, Nasal, Daily, as needed for allergy symptoms, 0 Refill(s) Start Date: 12/25/13 Status: Ordered furosemide 80 mg oral tablet See Instructions, TAKE ONE-HALF TABLET BY MOUTH EVERY DAY, # 30 tabs, 4 Refill(s ), eRx: [facility] #[id number], TAKE ONE-HALF TABLET BY MOUTH EVERY DAY Special Instructions: TAKE ONE-HALF TABLET BY MOUTH EVERY DAY Start Date: 02/17/14 Status: Ordered hydrocortisone 2.5% topical cream soniya, Topical, BID, apply very lightly to facial rash twice daily as needed, 0 Refill(s) Special Instructions: apply very lightly to facial rash twice daily as needed Start Date: 12/25/13 Status: Ordered Metafolbic Plus oral tablet 1 tabs, Oral, Daily, # 30 tabs, 7 Refill(s), Pharmacy: [facility] #[id number] Start Date: 03/18/14 Status: Ordered multivitamin 1 tablet, Oral, Daily, 0 Refill(s) Start Date: 12/25/13 Status: Ordered Liberty 7.5 mg-325 mg oral tablet 1 tabs, Oral, BID, as needed for pain, Newton Lindsey, # 60 tabs, 0 Refill(s) Special Instructions: Newton Lindsey Start Date: 09/25/14 Status: Ordered pyridoxine 100 mg oral tablet 1 tabs, Oral, Daily, 0 Refill(s) Start Date: 12/25/13 Status: Ordered spironolactone 100 mg oral tablet See Instructions, TAKE ONE TABLET BY MOUTH EVERY DAY., # 30 tabs, 10 Refill(s), eRx: [facility] #[id number], TAKE ONE TABLET BY MOUTH EVERY DAY. Special Instructions: TAKE ONE TABLET BY MOUTH EVERY DAY. Start Date: 12/09/13 Status: Ordered traMADol 50 mg oral tablet 1 tabs, Oral, q6hr, as needed for pain, Newton Lindsey, # 60 tabs, 2 Refill(s) Special Instructions: Newton Lindsey Start Date: 08/29/14 Status: Ordered Vitamin D with Minerals oral tablet 1 tabs, Oral, Daily, # 30 tabs, 0 Refill(s) Start Date: 02/27/14 Status: Ordered Wheelchair (DME) DME Item Electric wheelchair, See Instructions, # 1 Each, 0 Refill(s), Supply Special Instructions: Electric wheelchair Start Date: 07/29/14 Status: Ordered Results Hematology Most recent to 1 oldest [Reference Range]: WBC [4.8-10.8 K/uL] 6.2 K/uL (10/24/14 10:16 AM) RBC [4.00-5.20 M/uL] 3.62 M/uL *LOW* (10/24/14 10:16 AM) Hgb [12.0-16.0 11.9 gm/dL gm/dL] *LOW* (10/24/14 10:16 AM) Hct [37.0-47.0 %] 35.6 % *LOW* (10/24/14:16 AM) MCV [82.0-99.0 fL] 98.3 fL (10/24/14:16 AM) MCH [27.0-32.0 pg] 32.9 pg *HI* (10/24/14: AM) MCHC [32.0-36.0 33.4 gm/dL gm/dL] (10/24/14 10:16 AM) RDW [11.5-14.5 %] 15.6 % *HI* (10/24/14:16 AM) Platelet [150-400 86 K/uL 1 K/uL] *LOW* (10/24/14:16 AM) MPV [8.8-14.8 fL] 11.8 fL (10/24/14 10:16 AM) Immature 0.5 % Granulocytes (10/24/14:16 AM) [0.0-1.0 %] Neutrophils [51-75 61 % %] (10/24/14 10:16 AM) Lymphocytes [20-46 18 % %] *LOW* (10/24/14: AM) Monocytes [4-11 %] 20 % *HI* (10/24/14:16 AM) Eosinophils [0-4 %] 0 % (10/24/14 10:16 AM) Basophils [0-2 %] 0 % (10/24/14 10:16 AM) Neutro Absolute 3.77 THOUS [1.90-7.00 THOUS] (10/24/14 10:16 AM) Lymph Absolute 1.12 THOUS [0.80-3.30 THOUS] (10/24/14 10:16 AM) [place] Absolute 1.25 THOUS [0.30-1.00 THOUS] *HI* (10/24/14:16 AM) Eos Absolute 0.02 THOUS [0.00-0.50 THOUS] (10/24/14 10:16 AM) Baso Absolute 0.00 THOUS [0.00-0.20 THOUS] (10/24/14 10:16 AM) Differential Scanned Slide (4/24/15 10:16 AM) 1Result Comment: Platelet checks with slide. No clumps appear. Chemistry Most recent to 1 oldest [Reference Range]: Sodium Lvl [135-144 141 mEq/L mEq/L] (10/24/14 10:16 AM) Potassium Lvl 4.5 mEq/L [3.5-5.2 mEq/L] (10/24/14 10:16 AM) Chloride [99-111 107 mEq/L mEq/L] (10/24/14 10:16 AM) CO2 [22-31 mEq/L] 24 mEq/L (10/24/14 10:16 AM) AGAP [3-20] 10 (10/24/14 10:16 AM) BUN [10-20 mg/dL] 30 mg/dL *HI* (10/24/14 10:16 AM) Glucose Lvl [70-99 99 mg/dL mg/dL] (10/24/14 10:16 AM) Creatinine Lvl 1.09 mg/dL [0.57-1.11 mg/dL] (10/24/14 10:16 AM) eGFR [>60 mL/min] 49 mL/min 2 *ABN* (10/24/14 10:16 AM) Calcium Lvl 9.9 mg/dL [8.9-10.5 mg/dL] (10/24/14:16 AM) Albumin Lvl [3.4-4.8 4.4 gm/dL gm/dL] (10/24/14 10:16 AM) Total Protein 7.5 gm/dL [6.2-8.1 gm/dL] (10/24/14:16 AM) Globulin [1.8-4.0 3.1 gm/dL gm/dL] (10/24/14 10:16 AM) ALT [0-55 unit/L] 15 unit/L (10/24/14 10:16 AM) AST [5-34 unit/L] 18 unit/L (10/24/14 10:16 AM) Alk Phos [40-150 115 unit/L unit/L] (10/24/14 10:16 AM) Bili Total [0.2-1.2 0.4 mg/dL mg/dL] (10/24/14 10:16 AM) LDL Direct [0-129 67 mg/dL mg/dL] (10/24/14 10:16 AM) TSH [0.35-4.94] 5.49 *HI* (10/24/14 10:16 AM) 2Result Comment: Multiply eGFR results by 1.21 for race. Immunizations Vaccine Date Refusal Reason pneumococcal 13-valent conjugate vaccine 11/01/13 tetanus-diphth toxoids (Td) adult/adol 09/05/08 [...] Patient Education Author: Joshua Dangelo MD Date: 10/24 Family Medicine Sleep Apnea Sleep apnea is a sleep disorder characterized by abnormal pauses in breathing while you sleep. When your breathing pauses, the level of oxygen in your blood decreases. This causes you to move out of deep sleep and into light sleep. As a result, your quality of sleep is poor, and the system that carries your blood throughout your body (cardiovascular system ) experiences stress. If sleep apnea remains untreated, the following conditions can develop: High blood pressure (hypertension ). Coronary artery disease. Inability to achieve or maintain an erection (impotence ). Impairment of your thought process (cognitive dysfunction ). There are three types of sleep apnea: 1. Obstructive sleep apnea Pauses in breathing during sleep because of a blocked airway. 2. Central sleep apnea Pauses in breathing during sleep because the area of the brain that controls your breathing does not send the correct signals to the muscles that control breathing. 3. Mixed sleep apneaA combination of both obstructive and central sleep apnea. RISK FACTORS The following risk factors can increase your risk of developing sleep apnea: Being overweight. Smoking. Having narrow passages in your nose and throat. Being of older age. Being male. Alcohol use. Sedative and tranquilizer use. Ethnicity. Among individuals younger than 35 years, Americans are at increased risk of sleep apnea. SYMPTOMS Difficulty staying asleep. Daytime sleepiness and fatigue. Loss of energy. Irritability. Loud, heavy snoring. Morning headaches. Trouble concentrating. Forgetfulness. Decreased interest in sex. DIAGNOSIS In order to diagnose sleep apnea, your caregiver will perform a physical examination. Your caregiver may suggest that you take a home sleep test. Your caregiver may also recommend that you spend the night in a sleep lab. In the sleep lab, several monitors record information about your heart, lungs, and brain while you sleep. Your leg and arm movements and blood oxygen level are also recorded. TREATMENT The following actions may help to resolve mild sleep apnea: Sleeping on your side. Using a decongestant if you have nasal congestion. Avoiding the use of depressants, including alcohol, sedatives, and narcotics. Losing weight and modifying your diet if you are overweight. There also are devices and treatments to help open your airway: Oral appliances. These are custom-made mouthpieces that shift your lower jaw forward and slightly open your bite. This opens your airway. Devices that create positive airway pressure. This positive pressure "splints" your airway open to help you breathe better during sleep. The following devices create positive airway pressure: Continuous positive airway pressure (CPAP) device. The CPAP device creates a continuous level of air pressure with an air pump. The air is delivered to your airway through a mask while you sleep. This continuous pressure keeps your airway open. Nasal expiratory positive airway pressure (EPAP) device. The EPAP device creates positive air pressure as you exhale. The device consists of single-use valves, which are inserted into each nostril and held in place by adhesive. The valves create very little resistance when you inhale but create much more resistance when you exhale. That increased resistance creates the positive airway pressure. This positive pressure while you exhale keeps your airway open , making it easier to breath when you inhale again. Bilevel positive airway pressure (BPAP) device. The BPAP device is used mainly in patients with central sleep apnea. This device is similar to the CPAP device because it also uses an air pump to deliver continuous air pressure through a mask. However, with the BPAP machine, the pressure is set at two different levels. The pressure when you exhale is lower than the pressure when you inhale. Surgery. Typically, surgery is only done if you cannot comply with less invasive treatments or if the less invasive treatments do not improve your condition. Surgery involves removing excess tissue in your airway to create a wider passage way. Document Released: 06/09/2003 Document Revised: 10/14/2013 Document Reviewed: [employer] Patient Information 2014 [employer]. Thrombocytopenia Thrombocytopenia means there are not enough platelets in your blood. Platelets are tiny cells in your blood. When you start bleeding, platelets clump together around the cut or injury to stop the bleeding. This process is called blood clotting. Not having enough platelets can cause bleeding problems. HOME CARE Check your skin and inside your mouth for bruises or blood as told by your doctor. Check your spit (sputum ), pee (urine ), and poop (stool ) for blood as told by your doctor. Do not do activities that can cause bumps or bruises until your doctor says it is okay. Be careful not to cut yourself when you shave or use scissors, needles, knives, or other tools. Be careful not to burn yourself when you iron or cook. Ask your doctor if you can drink alcohol. Only take medicines as told by your doctor. Tell all your doctors and your dentist that you have this bleeding problem. GET HELP RIGHT AWAY IF: You are bleeding anywhere on your body. You are bleeding or have bruises without knowing why. You have blood in your spit, pee, or poop. MAKE SURE YOU: Understand these instructions. Will watch your condition. Will get help right away if you are not doing well or get worse. Document Released: 06/07/2012 Document Revised: 09/10/2012 Document Reviewed: [employer] Patient Information 2014 [employer]. No follow up information was provided. Extracted from: Title: Female Physical Author: Joshua Dangelo MD Date: 10/24/14 Impression and Plan Diagnosis At high risk for pneumonia (ICD9 V49.89, Discharge, Medical). Benign essential hypertension (ICD9 401.1, Discharge, Medical). Chronic kidney disease (CKD), stage III (moderate) (ICD9 585.3, Discharge, Medical). High cholesterol (ICD9 272.0, Discharge, Medical). Lymphedema of leg (ICD9 457.1, Discharge, Medical). Morbid obesity (ICD9 278.01, Discharge, Medical). CLARISSA (obstructive sleep apnea) (ICD9 327.23, Discharge, Medical). Osteoarthritis lower leg (ICD9 715.90, Discharge, Medical). Pernicious anemia (ICD9 281.0, Discharge, Medical). Thrombocytopenia (ICD9 287.5, Discharge, Medical). Visit for screening mammogram (ICD9 V76.12, Discharge, Medical). Plan: Your Prevnar-13 vaccine is due after November 01, 2014. Health diet and daily exercise is helpful for everything. Schedule mammograms at the lab. Lab today. See me in 3 months and as needed., Use antibiotic ointment twice a day to the left herrera pustule.. Orders Orders (Selected) Outpatient Orders Ordered Office Visit Level 5 Est [id number]: pneumococcal 13-valent conjugate vaccine: 0.5 mL, IntraMuscular, Once Future (On Hold) CBC w/ Differential: CBC w/ Differential: CBC w/ Differential: CBC w/ Differential: CBC w/ Differential: CMP: LDL Direct: Mammogram Routine Screening Bilat: Routine Urinalysis: TSH 3rd Generation: . Dx/Order Association Plan: Diagnosis: At high risk for pneumonia Comment: Ordered: pneumococcal 13-valent conjugate vaccine; 0.5 mL, IntraMuscular, Once, Order Duration: 1 doses, First Dose: 10/24/14 10:00:00 CDT , Stop Date: 10/24/14 10:00:00 CDT, Form: Injection Office Visit Level 5 Est [id number]; 10/24/14 9:35:00 CDT, Benign essential hypertension | Lymphedema of leg | CLARISSA (obstructive sleep apnea) | Osteoarthritis lower leg | High cholesterol Diagnosis: Benign essential hypertension Comment: Ordered: Office Visit Level 5 Est [id number]; 10/24/14 9:35:00 CDT, Benign essential hypertension | Lymphedema of leg | CLARISSA (obstructive sleep apnea ) | Osteoarthritis lower leg | High cholesterol Diagnosis: Chronic kidney disease (CKD), stage III (moderate) Comment: Ordered: Office Visit Level 5 Est [id number]; 10/24/14 9:35:00 CDT, Benign essential hypertension | Lymphedema of leg | CLARISSA (obstructive sleep apnea ) | Osteoarthritis lower leg | High cholesterol Diagnosis: High cholesterol Comment: Ordered: Office Visit Level 5 Est [id number]; 10/24/14 9:35:00 CDT, Benign essential hypertension | Lymphedema of leg | CLARISSA (obstructive sleep apnea ) | Osteoarthritis lower leg | High cholesterol Diagnosis: Lymphedema of leg Comment: Ordered: Office Visit Level 5 Est [id number]; 10/24/14 9:35:00 CDT, Benign essential hypertension | Lymphedema of leg | CLARISSA (obstructive sleep apnea ) | Osteoarthritis lower leg | High cholesterol Diagnosis: Morbid obesity Comment: Ordered: Office Visit Level 5 Est [id number]; 10/24/14 9:35:00 CDT, Benign essential hypertension | Lymphedema of leg | CLARISSA (obstructive sleep apnea ) | Osteoarthritis lower leg | High cholesterol Diagnosis: CLARISSA (obstructive sleep apnea) Comment: Ordered: Office Visit Level 5 Est [id number]; 10/24/14 9:35:00 CDT, Benign essential hypertension | Lymphedema of leg | CLARISSA (obstructive sleep apnea ) | Osteoarthritis lower leg | High cholesterol Diagnosis: Osteoarthritis lower leg Comment: Ordered: Office Visit Level 5 Est [id number]; 10/24/14 9:35:00 CDT, Benign essential hypertension | Lymphedema of leg | CLARISSA (obstructive sleep apnea ) | Osteoarthritis lower leg | High cholesterol Diagnosis: Pernicious anemia Comment: Ordered: Office Visit Level 5 Est [id number]; 10/24/14 9:35:00 CDT, Benign essential hypertension | Lymphedema of leg | CLARISSA (obstructive sleep apnea ) | Osteoarthritis lower leg | High cholesterol Diagnosis: Thrombocytopenia Comment: Ordered: Office Visit Level 5 Est [id number]; 10/24/14 9:35:00 CDT, Benign essential hypertension | Lymphedema of leg | CLARISSA (obstructive sleep apnea ) | Osteoarthritis lower leg | High cholesterol Diagnosis: Visit for screening mammogram Comment: Ordered: Office Visit Level 5 Est [id number]; 10/24/14 9:35:00 CDT, Benign essential hypertension | Lymphedema of leg | CLARISSA (obstructive sleep apnea ) | Osteoarthritis lower leg | High cholesterol Additional Orders: Comment: Future Orders: CBC w/ Differential,Blood, Routine Collect, 10/24/14 , Once, Lab Collect, Pernicious anemia, Order for future visit Future Orders: CMP,Blood, Routine Collect, 10/24/14, Once, Lab Collect, Benign essential hypertension, Order for future visit Future Orders: LDL Direct,Blood, Routine Collect, 10/24/14, Once, Lab Collect, High cholesterol, Order for future visit Future Orders: Mammogram Routine Screening Bilat,*Est. 10/24/14 due within 6 months, Routine, Reason: Screening routine, Visit for screening mammogram Future Orders: Routine Urinalysis,Urine, Routine collect, 10/24/14 , Once, Nurse Collect Non-Blood, Benign essential hypertension, Order for future visit Future Orders: TSH 3rd Generation,Blood, Routine Collect, 10/24/14 , Once, Lab Collect, High cholesterol, Order for future visit End of Orders .
--- OUTSIDE RECORDS SUMMARY | 2016-10-08 15:27 | XMS REPORT | Referral Summary ---
Author Author [facility] Organization [facility] Address Unknown Phone Unavailable Care Team Providers Care Passenger Car Conductor Name Role Phone Ricco Dangelo Primary Care Physician [phone] Encounter Date(s): 03/12/15 - 03/12/15 [facility] [address], [facility] [address] [place], [place] [address] Discharge Diagnosis: Severe obstructive sleep apnea Discharge Disposition: 01-Home or Self Care Attending Physician: Emiliana Jean Admitting Physician: Emiliana Jean Referring Physician: Joshua Dangelo MD Vital Signs Most recent to 1 oldest [Reference Range]: Peripheral Pulse 68 bpm Rate [60-100 bpm] (03/12/15 2:17 PM) Blood Pressure 128/76 mmHg [90-140/60-90 mmHg] (03/12/15 2:17 PM) SpO2 91 % (03/12/15 2:17 PM) Problem List Condition Effective Dates Status [...] adenoma(Confirmed) Villoglandular 2007 Active colonic polyp(Confirmed) Villoglandular 2008 [...] DAY, # 30 tabs, 2 Refill(s), eRx: [facility] #[id number], TAKE ONE TABLET BY MOUTH ONCE A DAY Start Date: 04/20/15 Status: Ordered Crestor 10 mg oral tablet See Instructions, TAKE ONE TABLET BY MOUTH AT BEDTIME, # 90 tabs, 2 Refill(s), eRx: [facility] #[id number], TAKE ONE TABLET BY MOUTH AT BEDTIME Start Date: 12/05/14 Status: Ordered famotidine 20 mg oral tablet See Instructions, TAKE ONE TABLET BY MOUTH TWICE A DAY, # 60 tabs, 10 Refill(s) , eRx: [facility] #[id number], TAKE ONE TABLET BY MOUTH TWICE A DAY Start Date: 11/14/14 Status: Ordered fluticasone nasal 2 sprays, Nasal, Daily, as needed for allergy symptoms, 0 Refill(s) Start Date: 12/25/13 Status: Ordered furosemide 80 mg oral tablet See Instructions, TAKE ONE-HALF TABLET BY MOUTH EVERY DAY, # 30 tabs, 4 Refill(s ), eRx: [facility] #[id number], TAKE ONE-HALF TABLET BY MOUTH EVERY DAY Start Date: 02/17/14 Status: Ordered hydrocortisone 2.5% topical cream See Instructions, APPLY VERY LIGHTLY TO FACIAL RASH TWO TIMES A DAY NEEDED, # 30 unknown unit, eRx: [facility] #[id number], APPLY VERY LIGHTLY TO FACIAL RASH TWO TIMES A DAY NEEDED Start Date: 12/19/14 Status: Ordered hydrocortisone 2.5% topical cream soniya, Topical, BID, apply very lightly to facial rash twice daily as needed, 0 Refill(s) Start Date: 12/25/13 Status: Ordered levothyroxine 25 mcg (0.025 mg) oral tablet See Instructions, TAKE ONE TABLET BY MOUTH DAILY, # 30 tabs, 4 Refill(s), eRx: [facility] #[id number], TAKE ONE TABLET BY MOUTH DAILY Start Date: 02/23/15 Status: Ordered Metafolbic Plus oral tablet See Instructions, TAKE ONE TABLET BY MOUTH DAILY, # 30 tabs, 10 Refill(s), eRx: [facility] #[id number], TAKE ONE TABLET BY MOUTH DAILY Start Date: 11/14/14 Status: Ordered pyridoxine 100 mg oral tablet 1 tabs, Oral, Daily, 0 Refill(s) Start Date: 12/25/13 Status: Ordered spironolactone 100 mg oral tablet See Instructions, TAKE ONE TABLET BY MOUTH EVERY DAY., # 30 tabs, 9 Refill(s), eRx: [facility] #[id number], TAKE ONE TABLET BY MOUTH EVERY DAY. [...] 38 Assessment and Plan Extracted from: Title: Office Visit Note Author: Emiliana Jean Date: 03/12/15 Assessment/Plan 1.Severe obstructive sleep apnea -Not adequately treated as she is not currently using CPAP. She is using supplemental oxygen at 2LPM to attentuate the hypoxemia. I explained the sequelae of untreated sleep apnea. I also explained that pain medication worsens sleep apnea and the combination of this with the severity of her sleep apnea can be dangerous. She really needs to be wearing her CPAP. She is continuing to have some morning headaches and multiple nocturnal arousals, which is likely due to sleep apnea events. She and her daughter voiced understanding and agreed. She was agreeable to try a smaller mask. Will have RT work with her on a nasal pillows mask or nasal mask with a chinstrap.She will call if she is having trouble using her CPAP for troubleshooting. -Avoid driving or partaking in hazardous activities if drowsy. -F/u in 4-6 weeks for recheck of progress and compliance. I explained Medicare's rules in regard to compliance. She also is aware that she may need a repeat sleep study due to her break in CPAP therapy. Call if any questions or concerns in the meantime.
--- OUTSIDE RECORDS SUMMARY | 2016-10-08 15:27 | XMS REPORT | Referral Summary ---
Author Author [facility] [place] Organization [facility] [place] Address Unknown Phone Unavailable Care Team Providers Care Residential Property Manager Name Role Phone Ricco Dangelo Primary Care Physician [phone] Encounter Date(s): 11/24/15 - 11/24/15 [facility], [place] [address] [place] [place], [place] [address] Discharge Diagnosis: CLARISSA (obstructive sleep apnea) Discharge Diagnosis: Sleep related hypoventilation/hypoxemia in other disease Discharge Disposition: 01-Home or Self Care Attending Physician: Emilinaa Jean Admitting Physician: Emiliana Jean Vital Signs Most recent to 1 oldest [Reference Range]: Peripheral Pulse 74 bpm Rate [60-100 bpm] (11/24/15 1:19 PM) Blood Pressure 118/76 mmHg [90-140/60-90 mmHg] (11/24/15 1:19 PM) Mean Arterial 90 mmHg Pressure, Cuff (11/24/15 1:19 PM) SpO2 91 % (11/24/15 1:19 PM) Problem List Condition Effective Dates Status [...] 30 tabs, 2 Refill(s), eRx: [facility] #[id number], TAKE ONE TABLET BY MOUTH ONCE A DAY Start Date: 11/23/15 Status: Ordered Crestor 10 mg oral tablet See Instructions, TAKE ONE TABLET BY MOUTH AT BEDTIME, # 90 tabs, eRx: [facility] #[id number], TAKE ONE TABLET BY MOUTH AT BEDTIME Start Date: 10/02/15 Status: Ordered famotidine 20 mg oral tablet See Instructions, TAKE ONE TABLET BY MOUTH TWICE A DAY, # 60 tabs, 1 Refill(s), eRx: [facility] #[id number], TAKE ONE TABLET BY MOUTH TWICE A DAY Start Date: 10/12/15 Status: Ordered fluticasone nasal 2 sprays, Nasal, Daily, as needed for allergy symptoms, 0 Refill(s) Start Date: 12/25/13 Status: Ordered furosemide 80 mg oral tablet See Instructions, TAKE ONE-HALF TABLET BY MOUTH EVERY DAY, # 30 tabs, 3 Refill(s ), eRx: [facility] #[id number], TAKE ONE-HALF TABLET BY MOUTH EVERY DAY Start Date: 05/18/15 Status: Ordered hydrocortisone 2.5% topical cream See Instructions, APPLY VERY LIGHTLY TO FACIAL RASH TWO TIMES A DAY NEEDED, # 30 unknown unit, eRx: [facility] #[id number], APPLY VERY LIGHTLY TO FACIAL RASH TWO TIMES A DAY NEEDED Start Date: 12/19/14 Status: Ordered levothyroxine 25 mcg (0.025 mg) oral tablet See Instructions, TAKE ONE TABLET BY MOUTH DAILY, # 30 tabs, 3 Refill(s), eRx: [facility] #[id number], TAKE ONE TABLET BY MOUTH DAILY Start Date: 08/03/15 Status: Ordered Metafolbic Plus oral tablet See Instructions, TAKE ONE TABLET BY MOUTH DAILY, # 30 tabs, 1 Refill(s), eRx: [facility] #[id number], TAKE ONE TABLET BY MOUTH DAILY Start Date: 11/09/15 Status: Ordered pyridoxine 100 mg oral tablet 1 tabs, Oral, Daily, 0 Refill(s) Start Date: 12/25/13 Status: Ordered spironolactone 100 mg oral tablet See Instructions, TAKE ONE TABLET BY MOUTH EVERY DAY., # 30 tabs, 9 Refill(s), eRx: [facility] #[id number], TAKE ONE TABLET BY MOUTH EVERY DAY. [...] 2001 Hysteroscopy 2002 digitalis toxicity 1991 Cholecystectomy 1975 Appendectomy 1973 section 1964 section 1963 Dilation [...] Office Visit Note Author: Emiliana Jean Date: 11/24/15 Assessment/Plan 1.CLARISSA (obstructive sleep apnea) - Adequate treatment with CPAPobjectively at current pressure withexcellent adherence to therapy. She does meet Medicare requirements for ongoing treatment. Order to [facility] for supplies. Due to the headaches, will repeat overnight oximetry on current pressure and call with results. She will likely need a repeat sleep studyto determine need for supplemental oxygen if shecontinues to have hypoxemia. Continue CPAP with all sleep at 10cm. -CPAP download reviewed with the patient and patient is complying with and benefitting from treatment. -Avoid driving , partaking in hazardous activities, or operating heavy machinery if drowsy. -Continue appropriate cleaning of the machine/humidifier and update of all supplies including mask , tubing , and filters . -Return for follow-up in 1 year unless abnormal MIGUEL . Return/call sooner if any problems arise in the meantime. 2.Sleep related hypoventilation/hypoxemia in other disease -Overnight oximetry on CPAP and RA. -Call with results.
--- OUTSIDE RECORDS SUMMARY | 2016-10-08 15:27 | XMS REPORT | Referral Summary ---
Author Author [facility] Organization [facility] Address Unknown Phone Unavailable Care Team Providers Care Special Forces Engineer Sergeant Name Role Phone Ricco Dangelo Primary Care Physician [phone] Encounter Date(s): 12/14/15 - 12/14/15 [facility], [place] [address] [place], [place] [address] Discharge Disposition: 01-Home or Self [...] Refill(s), eRx: [facility] #[id number], TAKE ONE TABLET BY MOUTH ONCE A DAY Start Date: 11/23/15 Status: Ordered Crestor 10 mg oral tablet See Instructions, TAKE ONE TABLET BY MOUTH AT BEDTIME, # 90 tabs, eRx: [facility] #[id number], TAKE ONE TABLET BY MOUTH AT BEDTIME Start Date: 10/02/15 Status: Ordered famotidine 20 mg oral tablet See Instructions, TAKE ONE TABLET BY MOUTH TWICE A DAY, # 60 tabs, 2 Refill(s), eRx: [facility] #[id number], TAKE ONE TABLET BY MOUTH TWICE A DAY Start Date: 12/03/15 Status: Ordered fluticasone nasal 2 sprays, Nasal, Daily, as needed for allergy symptoms, 0 Refill(s) Start Date: 12/25/13 Status: Ordered furosemide 80 mg oral tablet See Instructions, TAKE ONE-HALF TABLET BY MOUTH EVERY DAY, # 30 tabs, 3 Refill(s ), eRx: [facility] #[id number], TAKE ONE-HALF TABLET BY MOUTH EVERY DAY Start Date: 05/18/15 Status: Ordered hydrocortisone 2.5% topical cream See Instructions, APPLY VERY LIGHTLY TO FACIAL RASH TWO TIMES A DAY NEEDED, # 30 unknown unit, eRx: [facility] #[id number], APPLY VERY LIGHTLY TO FACIAL RASH TWO TIMES A DAY NEEDED Start Date: 12/19/14 Status: Ordered levothyroxine 25 mcg (0.025 mg) oral tablet See Instructions, TAKE ONE TABLET BY MOUTH DAILY, # 30 tabs, 6 Refill(s), eRx: [facility] #[id number], TAKE ONE TABLET BY MOUTH DAILY Start Date: 12/09/15 Status: Ordered Metafolbic Plus oral tablet See Instructions, TAKE ONE TABLET BY MOUTH DAILY, # 30 tabs, 1 Refill(s), eRx: [facility] #[id number], TAKE ONE TABLET BY MOUTH DAILY Start Date: 11/09/15 Status: Ordered pyridoxine 100 mg oral tablet 1 tabs, Oral, Daily, 0 Refill(s) Start Date: 12/25/13 Status: Ordered spironolactone 100 mg oral tablet See Instructions, TAKE ONE TABLET BY MOUTH EVERY DAY., # 30 tabs, 9 Refill(s), eRx: [facility] #[id number], TAKE ONE TABLET BY MOUTH EVERY DAY. [...]
--- OUTSIDE RECORDS SUMMARY | 2016-10-08 15:27 | XMS REPORT | Referral Summary ---
Author Author [facility] Organization [facility] Address Unknown Phone Unavailable Care Team Providers Care Speech And Hearing Director Name Role Phone Ricco Dangelo Primary Care Physician [phone] Encounter Date(s): 03/12/15 - 03/12/15 [facility] [address], [facility] [address] [place], [place] [address] Discharge Diagnosis: Severe obstructive sleep apnea Discharge [...] DAY, # 30 tabs, 2 Refill(s), eRx: [facility] #[id number], TAKE ONE TABLET BY MOUTH ONCE A DAY Start Date: 04/20/15 Status: Ordered Crestor 10 mg oral tablet See Instructions, TAKE ONE TABLET BY MOUTH AT BEDTIME, # 90 tabs, 2 Refill(s), eRx: [facility] #[id number], TAKE ONE TABLET BY MOUTH AT BEDTIME Start Date: 12/05/14 Status: Ordered famotidine 20 mg oral tablet See Instructions, TAKE ONE TABLET BY MOUTH TWICE A DAY, # 60 tabs, 10 Refill(s) , eRx: [facility] #[id number], TAKE ONE TABLET BY MOUTH TWICE A DAY Start Date: 11/14/14 Status: Ordered fluticasone nasal 2 sprays, Nasal, Daily, as needed for allergy symptoms, 0 Refill(s) Start Date: 12/25/13 Status: Ordered furosemide 80 mg oral tablet See Instructions, TAKE ONE-HALF TABLET BY MOUTH EVERY DAY, # 30 tabs, 4 Refill(s ), eRx: [facility] #[id number], TAKE ONE-HALF TABLET BY MOUTH EVERY DAY Start Date: 02/17/14 Status: Ordered hydrocortisone 2.5% topical cream See Instructions, APPLY VERY LIGHTLY TO FACIAL RASH TWO TIMES A DAY NEEDED, # 30 unknown unit, eRx: [facility] #[id number], APPLY VERY LIGHTLY TO FACIAL RASH TWO TIMES A DAY NEEDED Start Date: 12/19/14 Status: Ordered hydrocortisone 2.5% topical cream soniya, Topical, BID, apply very lightly to facial rash twice daily as needed, 0 Refill(s) Start Date: 12/25/13 Status: Ordered levothyroxine 25 mcg (0.025 mg) oral tablet See Instructions, TAKE ONE TABLET BY MOUTH DAILY, # 30 tabs, 4 Refill(s), eRx: [facility] #[id number], TAKE ONE TABLET BY MOUTH DAILY Start Date: 02/23/15 Status: Ordered Metafolbic Plus oral tablet See Instructions, TAKE ONE TABLET BY MOUTH DAILY, # 30 tabs, 10 Refill(s), eRx: [facility] #[id number], TAKE ONE TABLET BY MOUTH DAILY Start Date: 11/14/14 Status: Ordered pyridoxine 100 mg oral tablet 1 tabs, Oral, Daily, 0 Refill(s) Start Date: 12/25/13 Status: Ordered spironolactone 100 mg oral tablet See Instructions, TAKE ONE TABLET BY MOUTH EVERY DAY., # 30 tabs, 9 Refill(s), eRx: [facility] #[id number], TAKE ONE TABLET BY MOUTH EVERY DAY. [...]
--- OUTSIDE RECORDS SUMMARY | 2016-10-08 15:27 | XMS REPORT | Referral Summary ---
Author Author [facility] Organization [facility] Address Unknown Phone Unavailable Care Team Providers Care Truck Driver Flatbed Name Role Phone Ricco Dangelo Primary Care Physician [phone] Encounter Date(s): 03/12/15 - 03/12/15 [facility] [address], [facility] [address] [place], [place] [address] Discharge Diagnosis: Severe obstructive sleep apnea [...] DAY, # 30 tabs, 2 Refill(s), eRx: [facility] #[id number], TAKE ONE TABLET BY MOUTH ONCE A DAY Start Date: 04/20/15 Status: Ordered Crestor 10 mg oral tablet See Instructions, TAKE ONE TABLET BY MOUTH AT BEDTIME, # 90 tabs, 2 Refill(s), eRx: [facility] #[id number], TAKE ONE TABLET BY MOUTH AT BEDTIME Start Date: 12/05/14 Status: Ordered famotidine 20 mg oral tablet See Instructions, TAKE ONE TABLET BY MOUTH TWICE A DAY, # 60 tabs, 10 Refill(s) , eRx: [facility] #[id number], TAKE ONE TABLET BY MOUTH TWICE A DAY Start Date: 11/14/14 Status: Ordered fluticasone nasal 2 sprays, Nasal, Daily, as needed for allergy symptoms, 0 Refill(s) Start Date: 12/25/13 Status: Ordered furosemide 80 mg oral tablet See Instructions, TAKE ONE-HALF TABLET BY MOUTH EVERY DAY, # 30 tabs, 4 Refill(s ), eRx: [facility] #[id number], TAKE ONE-HALF TABLET BY MOUTH EVERY DAY Start Date: 02/17/14 Status: Ordered hydrocortisone 2.5% topical cream See Instructions, APPLY VERY LIGHTLY TO FACIAL RASH TWO TIMES A DAY NEEDED, # 30 unknown unit, eRx: [facility] #[id number], APPLY VERY LIGHTLY TO FACIAL RASH TWO TIMES A DAY NEEDED Start Date: 12/19/14 Status: Ordered hydrocortisone 2.5% topical cream soniya, Topical, BID, apply very lightly to facial rash twice daily as needed, 0 Refill(s) Start Date: 12/25/13 Status: Ordered levothyroxine 25 mcg (0.025 mg) oral tablet See Instructions, TAKE ONE TABLET BY MOUTH DAILY, # 30 tabs, 4 Refill(s), eRx: [facility] #[id number], TAKE ONE TABLET BY MOUTH DAILY Start Date: 02/23/15 Status: Ordered Metafolbic Plus oral tablet See Instructions, TAKE ONE TABLET BY MOUTH DAILY, # 30 tabs, 10 Refill(s), eRx: [facility] #[id number], TAKE ONE TABLET BY MOUTH DAILY Start Date: 11/14/14 Status: Ordered pyridoxine 100 mg oral tablet 1 tabs, Oral, Daily, 0 Refill(s) Start Date: 12/25/13 Status: Ordered spironolactone 100 mg oral tablet See Instructions, TAKE ONE TABLET BY MOUTH EVERY DAY., # 30 tabs, 9 Refill(s), eRx: [facility] #[id number], TAKE ONE TABLET BY MOUTH EVERY DAY. [...]
--- OUTSIDE RECORDS SUMMARY | 2016-10-08 15:27 | XMS REPORT | Referral Summary ---
Author Author [facility] [place] Organization [facility] Address Unknown Phone Unavailable Care Team Providers Care Tooth Grinder Name Role Phone Ricco Dangelo Primary Care Physician [phone] Encounter [facility] Date(s): 11/07/14 - 11/07/14 [facility] [place], [address] [place] [address]- Discharge Diagnosis: Need for prophylactic vaccination with Streptococcus pneumoniae (Pneumococcus) and Influenza vaccines Discharge Disposition: 01-Home or Self Care Attending Physician: Joshua Dangelo MD Admitting Physician: Joshua Dangelo MD Vital Signs No data available for this [...] DAY, # 30 tabs, 2 Refill(s), eRx: [facility] #[id number], TAKE ONE TABLET BY MOUTH ONCE A DAY Start Date: 04/20/15 Status: Ordered Crestor 10 mg oral tablet See Instructions, TAKE ONE TABLET BY MOUTH AT BEDTIME, # 90 tabs, 2 Refill(s), eRx: [facility] #[id number], TAKE ONE TABLET BY MOUTH AT BEDTIME Start Date: 12/05/14 Status: Ordered famotidine 20 mg oral tablet See Instructions, TAKE ONE TABLET BY MOUTH TWICE A DAY, # 60 tabs, 10 Refill(s) , eRx: [facility] #[id number], TAKE ONE TABLET BY MOUTH TWICE A DAY Start Date: 11/14/14 Status: Ordered fluticasone nasal 2 sprays, Nasal, Daily, as needed for allergy symptoms, 0 Refill(s) Start Date: 12/25/13 Status: Ordered furosemide 80 mg oral tablet See Instructions, TAKE ONE-HALF TABLET BY MOUTH EVERY DAY, # 30 tabs, 3 Refill(s ), eRx: [facility] #[id number], TAKE ONE-HALF TABLET BY MOUTH EVERY DAY Start Date: 05/18/15 Status: Ordered hydrocortisone 2.5% topical cream See Instructions, APPLY VERY LIGHTLY TO FACIAL RASH TWO TIMES A DAY NEEDED, # 30 unknown unit, eRx: [facility] #[id number], APPLY VERY LIGHTLY TO FACIAL RASH TWO TIMES A DAY NEEDED Start Date: 12/19/14 Status: Ordered hydrocortisone 2.5% topical cream soniya, Topical, BID, apply very lightly to facial rash twice daily as needed, 0 Refill(s) Start Date: 12/25/13 Status: Ordered levothyroxine 25 mcg (0.025 mg) oral tablet See Instructions, TAKE ONE TABLET BY MOUTH DAILY, # 30 tabs, 4 Refill(s), eRx: [facility] #[id number], TAKE ONE TABLET BY MOUTH DAILY Start Date: 02/23/15 Status: Ordered Metafolbic Plus oral tablet See Instructions, TAKE ONE TABLET BY MOUTH DAILY, # 30 tabs, 10 Refill(s), eRx: [facility] #[id number], TAKE ONE TABLET BY MOUTH DAILY Start Date: 11/14/14 Status: Ordered pyridoxine 100 mg oral tablet 1 tabs, Oral, Daily, 0 Refill(s) Start Date: 12/25/13 Status: Ordered spironolactone 100 mg oral tablet See Instructions, TAKE ONE TABLET BY MOUTH EVERY DAY., # 30 tabs, 9 Refill(s), eRx: [facility] #[id number], TAKE ONE TABLET BY MOUTH EVERY DAY. [...] and curettage 2001 Hysteroscopy 2002 digitalis toxicity 1990 Cholecystectomy 1974 Appendectomy 1974 [...]
--- OUTSIDE RECORDS SUMMARY | 2016-10-08 15:27 | XMS REPORT | Referral Summary ---
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 Active colonic polyp(Confirmed) Visual Active problems(Confirmed) Allergies, Adverse Reactions, Alerts Substance Reaction Severity Status Bactrim Active Mupirocin Calcium rash Active sulfamethoxazole rash all over Active trimethoprim rash all over Active Medications allopurinol 300 mg oral tablet See Instructions, TAKE ONE TABLET BY MOUTH ONCE A DAY, # 30 tabs, 1 Refill(s), eRx: [facility] #[id number], TAKE ONE TABLET BY MOUTH ONCE A DAY Start Date: 09/21/15 Status: Ordered Crestor 10 mg oral tablet See Instructions, TAKE ONE TABLET BY MOUTH AT BEDTIME, # 90 tabs, 2 Refill(s), eRx: [facility] #[id number], TAKE ONE TABLET BY MOUTH AT BEDTIME Start Date: 12/05/14 Status: Ordered famotidine 20 mg oral tablet See Instructions, TAKE ONE TABLET BY MOUTH TWICE A DAY, # 60 tabs, 10 Refill(s) , eRx: [facility] #[id number], TAKE ONE TABLET BY MOUTH TWICE A DAY Start Date: 11/14/14 Status: Ordered fluticasone nasal 2 sprays, Nasal, Daily, as needed for allergy symptoms, 0 Refill(s) Start Date: 12/25/13 Status: Ordered furosemide 80 mg oral tablet See Instructions, TAKE ONE-HALF TABLET BY MOUTH EVERY DAY, # 30 tabs, 3 Refill(s ), eRx: [facility] #[id number], TAKE ONE-HALF TABLET BY MOUTH EVERY DAY Start Date: 05/18/15 Status: Ordered hydrocortisone 2.5% topical cream See Instructions, APPLY VERY LIGHTLY TO FACIAL RASH TWO TIMES A DAY NEEDED, # 30 unknown unit, eRx: [facility] #[id number], APPLY VERY LIGHTLY TO FACIAL RASH TWO TIMES A DAY NEEDED Start Date: 12/19/14 Status: Ordered levothyroxine 25 mcg (0.025 mg) oral tablet See Instructions, TAKE ONE TABLET BY MOUTH DAILY, # 30 tabs, 3 Refill(s), eRx: [facility] #[id number], TAKE ONE TABLET BY MOUTH DAILY Start Date: 08/03/15 Status: Ordered Metafolbic Plus oral tablet See Instructions, TAKE ONE TABLET BY MOUTH DAILY, # 30 tabs, 10 Refill(s), eRx: [facility] #[id number], TAKE ONE TABLET BY MOUTH DAILY Start Date: 11/14/14 Status: Ordered pyridoxine 100 mg oral tablet 1 tabs, Oral, Daily, 0 Refill(s) Start Date: 12/25/13 Status: Ordered spironolactone 100 mg oral tablet See Instructions, TAKE ONE TABLET BY MOUTH EVERY DAY., # 30 tabs, 9 Refill(s), eRx: [facility] #[id number], TAKE ONE TABLET BY MOUTH EVERY DAY. [...] 2001 Hysteroscopy 2001 digitalis toxicity 1990 Cholecystectomy 1975 Appendectomy 1974 section 1965 section 1964 Dilation [...]
--- OUTSIDE RECORDS SUMMARY | 2016-10-08 15:28 | XMS REPORT | Referral Summary ---
Author Author [facility] [place] Organization [facility] Address Unknown Phone Unavailable Care Team Providers Care White [employer] Grinder Name Role Phone Ricco Dangelo Primary Care Physician [phone] Encounter VC Date(s): 02/12/16 - 02/12/16 [facility] [place], [address] [place] [address] Discharge Disposition: 01-Home or Self Care Attending Physician: Joshua Dangelo MD Admitting Physician: Joshua Dangelo MD Vital Signs Most recent to 1 oldest [Reference Range]: Temperature Tympanic 37.2 degC [36.6-38.1 degC] (02/12/16 9:38 AM) Peripheral Pulse 80 bpm Rate [60-100 bpm] (02/12/16 9:38 AM) Blood Pressure 144/76 mmHg [90-140/60-90 mmHg] *HI* (02/12/16 9:38 AM) Problem List Condition Effective Dates Status [...] DAY, # 30 tabs, 2 Refill(s), eRx: [facility] #[id number], TAKE ONE TABLET BY MOUTH ONCE A DAY Start Date: 11/23/15 Status: Ordered Crestor 10 mg oral tablet See Instructions, TAKE ONE TABLET BY MOUTH AT BEDTIME, # 90 tabs, eRx: [facility] #[id number], TAKE ONE TABLET BY MOUTH AT BEDTIME Start Date: 01/01/16 Status: Ordered famotidine 20 mg oral tablet See Instructions, TAKE ONE TABLET BY MOUTH TWICE A DAY, # 60 tabs, 2 Refill(s), eRx: [facility] #[id number], TAKE ONE TABLET BY MOUTH TWICE A DAY Start Date: 12/03/15 Status: Ordered fluticasone nasal 2 sprays, Nasal, Daily, as needed for allergy symptoms, 0 Refill(s) Start Date: 12/25/13 Status: Ordered furosemide 80 mg oral tablet See Instructions, TAKE ONE-HALF TABLET BY MOUTH EVERY DAY, # 30 tabs, 3 Refill(s ), eRx: [facility] #[id number], TAKE ONE-HALF TABLET BY MOUTH EVERY DAY Start Date: 05/18/15 Status: Ordered hydrocortisone 2.5% topical cream See Instructions, APPLY VERY LIGHTLY TO FACIAL RASH TWO TIMES A DAY NEEDED, # 30 unknown unit, 1 Refill(s), eRx: [facility] #[id number], APPLY VERY LIGHTLY TO FACIAL RASH TWO TIMES A DAY NEEDED Start Date: 01/21/16 Status: Ordered levothyroxine 25 mcg (0.025 mg) oral tablet See Instructions, TAKE ONE TABLET BY MOUTH DAILY, # 30 tabs, 6 Refill(s), eRx: [facility] #[id number], TAKE ONE TABLET BY MOUTH DAILY Start Date: 12/09/15 Status: Ordered Metafolbic Plus oral tablet See Instructions, TAKE ONE TABLET BY MOUTH DAILY, # 30 tabs, 1 Refill(s), eRx: [facility] #[id number], TAKE ONE TABLET BY MOUTH DAILY Start Date: 01/11/16 Status: Ordered pyridoxine 100 mg oral tablet 1 tabs, Oral, Daily, 0 Refill(s) Start Date: 12/25/13 Status: Ordered spironolactone 100 mg oral tablet See Instructions, TAKE ONE TABLET BY MOUTH EVERY DAY., # 30 tabs, 1 Refill(s), eRx: [facility] #[id number], TAKE ONE TABLET BY MOUTH EVERY DAY. [...] to 1 oldest [Reference Range]: WBC [4.8-10.8 6.8 10*3/uL 10*3/uL] (02/12/16 11:35 AM) RBC [4.00-5.20] 3.68 *LOW* (02/12/16 11:35 AM) Hgb [12.0-16.0 11.8 gm/dL gm/dL] *LOW* (02/12/16 11:35 AM) Hct [37.0-47.0 %] 35.0 % *LOW* (02/12/16 11:35 AM) MCV [82.0-99.0 fL] 95.1 fL (02/12/16 11:35 AM) MCH [27.0-32.0 pg] 32.1 pg *HI* (02/12/16:35 AM) MCHC [32.0-36.0 33.7 gm/dL gm/dL] (02/12/16 11:35 AM) RDW [11.5-14.5 %] 16.8 % *HI* (02/12/16 11:35 AM) Platelet [150-400 89 10*3/uL 1 10*3/uL] *LOW* (02/12/16 11:35 AM) MPV [8.8-14.8 fL] 12.1 fL (02/12/16 11:35 AM) Neutrophils [51-75 65 % %] (02/12/16 11:35 AM) Lymphocytes [20-46 17 % %] *LOW* (02/12/16 11:35 AM) Monocytes [4-11 %] 16 % *HI* (02/12/16 11:35 AM) Eosinophils [0-4 %] 1 % (02/12/16 11:35 AM) Basophils [0-2 %] 1 % (02/12/16 11:35 AM) Neutro Absolute 4.42 10*3 [1.90-7.00 10*3] (02/12/16 11:35 AM) Lymph Absolute 1.16 10*3 [0.80-3.30 10*3] (02/12/16 11:35 AM) Cotton Absolute 1.09 10*3 [0.30-1.00 10*3] *HI* (02/12/16 11:35 AM) Eos Absolute 0.07 10*3 [0.00-0.50 10*3] (02/12/16 11:35 AM) Baso Absolute 0.07 10*3 [0.00-0.20 10*3] (02/12/16 11:35 AM) Differential Manual *ABN* (02/12/16 11:35 AM) 1Result Comment: Platelet checks with slide. No clumps appear. Chemistry Most recent to 1 oldest [Reference Range]: Sodium Lvl [135-144 142 mEq/L mEq/L] (02/12/16 11:35 AM) Potassium Lvl 4.4 mEq/L [3.5-5.2 mEq/L] (02/12/16:35 AM) Chloride [99-111 107 mEq/L mEq/L] (02/12/16:35 AM) CO2 [22-31 mEq/L] 25 mEq/L (02/12/16:35 AM) AGAP [3-20] 10 (02/12/16:35 AM) BUN [10-20 mg/dL] 37 mg/dL *HI* (02/12/16:35 AM) Glucose Lvl [70-99 106 mg/dL mg/dL] *HI* (02/12/16 11:35 AM) Creatinine Lvl 1.42 mg/dL [0.57-1.11 mg/dL] *HI* (02/12/16:35 AM) eGFR [>60 mL/min] 36 mL/min 1 *ABN* (02/12/16:35 AM) Calcium Lvl 9.7 mg/dL [8.9-10.5 mg/dL] (02/12/16:35 AM) Albumin Lvl [3.4-4.8 4.4 gm/dL gm/dL] (02/12/16:35 AM) Total Protein 7.5 gm/dL 2 [6.0-7.6 gm/dL] (02/12/16:35 AM) Globulin [1.8-4.0 3.1 gm/dL gm/dL] (02/12/16 11:35 AM) ALT [0-55 U/L] 14 U/L (02/12/16:35 AM) AST [5-34 U/L] 15 U/L (02/12/16 11:35 AM) Alk Phos [40-150 113 U/L U/L] (02/12/16 11:35 AM) Bili Total [0.2-1.2 0.4 mg/dL mg/dL] (02/12/16 11:35 AM) Uric Acid [2.6-6.0 6.2 mg/dL mg/dL] *HI* (02/12/16 11:35 AM) Chol [0-199 mg/dL] 110 mg/dL (02/12/16 11:35 AM) Trig [0-149 mg/dL] 95 mg/dL (02/12/16 11:35 AM) HDL [40-84 mg/dL] 40 mg/dL (02/12/16 11:35 AM) LDL [0-130 mg/dL] 51 mg/dL (02/12/16 11:35 AM) VLDL Cholesterol 19 mg/dL [0-28 mg/dL] (02/12/16 11:35 AM) Cardiac Risk 2.8 [0.0-5.0] (02/12/16 11:35 AM) Estimated Creatinine 21.51 mL/min Clearance (02/12/16 7:21 PM) 1Result Comment: Multiply eGFR results by 1.21 for race. 2Result Comment: Please note new reference range for adult Protein. Urinalysis Most recent to 1 oldest [Reference Range]: UA Color Yellow (02/12/16 11:45 AM) UA Appear Cloudy *ABN* (02/12/16 11:45 AM) UA pH [5.0-8.0] 6.0 (02/12/16 11:45 AM) UA Leuk Est Negative [Negative] (02/12/16 11:45 AM) UA Nitrite Negative [Negative] (02/12/16 11:45 AM) UA Protein Pos 1+ [Negative] *ABN* (02/12/16 11:45 AM) UA Glucose Negative [Negative] (02/12/16 11:45 AM) UA Ketones Negative [Negative] (02/12/16 11:45 AM) UA Urobilinogen 0.2 mg/dL [<1.0 mg/dL] (02/12/16 11:45 AM) UA Bili [Negative] Negative (02/12/16 11:45 AM) UA Blood [Negative] Negative (02/12/16 11:45 AM) UA Spec Grav 1.018 [1.003-1.030] (02/12/16 11:45 AM) Type Clean Catch (02/12/16 11:45 AM) UA WBC [0-4] 0-2 (02/12/16 11:45 AM) UA RBC [0-4] 0-4 (02/12/16 11:45 AM) Epithelial Cells 5-10 (02/12/16 11:45 AM) UA Bacteria Numerous *ABN* (02/12/16 11:45 AM) UA Hyal Cast [0-3] 4-6 *ABN* (02/12/16 11:45 AM) Immunizations Vaccine Date Refusal Reason pneumococcal 13-valent [...] Patient Education Author: Joshua Dangelo MD Date: 02/11 Family Medicine Colon Polyps Polyps are lumps of extra tissue growing inside the body. Polyps can grow in the large intestine (colon). Most colon polyps are noncancerous (benign). However, some colon polyps can become cancerous over time. Polyps that are larger than a pea may be harmful. To be safe, caregivers remove and test all polyps. CAUSES Polyps form when mutations in the genes cause your cells to grow and divide even though no more tissue is needed. RISK FACTORS There are a number of risk factors that can increase your chances of getting colon polyps. They include: Being older than 50 years. Family history of colon polyps or colon cancer. Long-term colon diseases, such as colitis or Crohn disease. Being overweight. Smoking. Being inactive. Drinking too much alcohol. SYMPTOMS Most small polyps do not cause symptoms. If symptoms are present, they may include: Blood in the stool. The stool may look dark red or black. Constipation or diarrhea that lasts longer than 1 week. DIAGNOSIS People often do not know they have polyps until their caregiver finds them during a regular checkup. Your caregiver can use 4 tests to check for polyps: Digital rectal exam. The caregiver wears gloves and feels inside the rectum. This test would find polyps only in the rectum. Barium enema. The caregiver puts a liquid called barium into your rectum before taking X-rays of your colon. Barium makes your colon look white. Polyps are dark, so they are easy to see in the X-ray pictures. Sigmoidoscopy. A thin, flexible tube (sigmoidoscope) is placed into your rectum. The sigmoidoscope has a light and tiny camera in it. The caregiver uses the sigmoidoscope to look at the last third of your colon. Colonoscopy. This test is like sigmoidoscopy, but the caregiver looks at the entire colon. This is the most common method for finding and removing polyps. TREATMENT Any polyps will be removed during a sigmoidoscopy or colonoscopy. The polyps are then tested for cancer. PREVENTION To help lower your risk of getting more colon polyps: Eat plenty of fruits and vegetables. Avoid eating fatty foods. Do not smoke. Avoid drinking alcohol. Exercise every day. Lose weight if recommended by your caregiver. Eat plenty of calcium and folate. Foods that are rich in calcium include milk, cheese, and broccoli. Foods that are rich in folate include chickpeas, kidney beans, and spinach. HOME CARE INSTRUCTIONS Keep all follow-up appointments as directed by your caregiver. You may need periodic exams to check for polyps. SEEK MEDICAL CARE IF: You notice bleeding during a bowel movement. This information is not intended to replace advice given to you by your health care provider. Make sure you discuss any questions you have with your health care provider. Document Released: 03/15/2005 Document Revised: 07/10/2015 Document Reviewed: [employer] Patient Information 2016 [employer]. No follow up information was provided. Extracted from: Title: Female Physical Author: Joshua Dangelo MD Date: 02/12/16 Impression and Plan Diagnosis CLARISSA on CPAP (MSF64-OG G47.33, Working, Medical). Benign essential hypertension (KYR49-EM I10, Working, Medical). Primary hypercholesterolemia (VKP15-MG E78.0, Working, Medical). Lymphedema of leg (XJW01-VZ I89.0, Working, Medical). Morbid obesity (JPG83-CU E66.01, Working, Medical). Osteoarthritis of both knees (EJA84-EI M17.0, Working, Medical). Pernicious anemia (WQJ90-XH D51.0, Working, Medical). Chronic gout (UKL93-MG M10.00, Working, Medical). Tubular adenoma (LKC86-NV D12.6, Working, Medical). Rosacea (OYT65-NT L71.9, Working, Medical). Chronic kidney disease (CKD), stage III (moderate) (EKB98-QH N18.3, Working, Medical). Stasis leg ulcer (NXX51-AI L97.311, Working, Medical). Villoglandular colonic polyp (KZE32-OT K63.5, Working, Medical). Tension headache (AVF71-OR G44.229, Working, Medical). Hypothyroid (KXR55-OH E03.9, Working, Medical). Normal pelvic exam (QNE56-IU Z01.419, Working, Medical). Plan: 1) Prevnar-13 vaccine given today. 2) See Dr. Dallas for your colonoscopy. 3) Fasting lab today. 4) Continue your current meds. 5) Healthy diet and daily exercise helps most things. 6) See me in 6 months and as needed. 7) Twinrix (hepatitis A and B) vaccine series recommended at the health department. 8) Get mammograms sometime at the hospital. 9) Medicare screening breast and pelvic exam done today. . Orders Orders (Selected) Outpatient Orders Ordered CBC w/ Differential: CMP: Lipid Panel: Office Visit Level 5 Est 37479: Pelvis and Breast exam- with or without exam G0101: Uric Acid: eGFR: Ordered (Pending Collection) Routine Urinalysis: Completed pneumococcal 13-valent conjugate vaccine: 0.5 mL, IntraMuscular, Once. Dx/Order Association Plan: Diagnosis: At high risk for pneumonia Comment: Other status: pneumococcal 13-valent conjugate vaccine; 0.5 mL, IntraMuscular, Once, First Dose: 02/12/16 11:00:00 CDT, Stop Date: 02/12/16 11: 00:00 CDT (Completed) Diagnosis: Benign essential hypertension Comment: Ordered: CMP; Blood, Routine Collect, 02/12/16 11:23:00 CDT, Once , Stop date 02/12/16 11:23:00 CDT, Lab Collect, Benign essential hypertension | Lymphedema of leg | Chronic kidney disease (CKD), stage III (moderate) CBC w/ Differential; Blood, Routine Collect, 11:23:00 CDT, Once, Stop date 02/12/16 11:23:00 CDT, Lab Collect, Pernicious anemia | Benign essential hypertension | Chronic kidney disease (CKD), stage III (moderate) Routine Urinalysis; Urine, Clean Catch, Routine collect, 02/12/16 11:23:00 CDT, Once, Stop date 02/12/16 11:23:00 CDT, Nurse Collect Non-Blood, Benign essential hypertension | Lymphedema of leg Office Visit Level 5 Est 39723; 02/12/16 10:46:00 CDT, Benign essential hypertension | Chronic kidney disease (CKD), stage III ( moderate) | CLARISSA on CPAP | Stasis leg ulcer | Tubular adenoma | Hypothyroid | Tension headache | Villoglandular colonic polyp | Rosacea | Primary hyperchole... Diagnosis: Chronic gout Comment: Ordered: Uric Acid; Blood, Routine Collect, 02/12/16 11:23:00 CDT , Once, Stop date 02/12/16 11:23:00 CDT, Lab Collect, Chronic gout | Chronic kidney disease (CKD), stage III (moderate) Office Visit Level 5 Est 12595; 02/12/16 10:46:00 CDT, Benign essential hypertension | Chronic kidney disease (CKD), stage III ( moderate) | CLARISSA on CPAP | Stasis leg ulcer | Tubular adenoma | Hypothyroid | Tension headache | Villoglandular colonic polyp | Rosacea | Primary hyperchole... Diagnosis: Chronic kidney disease (CKD), stage III (moderate) Comment: Ordered: CMP; Blood, Routine Collect, 02/12/16 11:23:00 CDT, Once , Stop date 02/12/16 11:23:00 CDT, Lab Collect, Benign essential hypertension | Lymphedema of leg | Chronic kidney disease (CKD), stage III (moderate) Uric Acid; Blood, Routine Collect, 02/12/16 11:23: 00 CDT, Once, Stop date 02/12/16 11:23:00 CDT, Lab Collect, Chronic gout | Chronic kidney disease (CKD), stage III (moderate) CBC w/ Differential; Blood, Routine Collect, 11:23:00 CDT, Once, Stop date 02/12/16 11:23:00 CDT, Lab Collect, Pernicious anemia | Benign essential hypertension | Chronic kidney disease (CKD), stage III (moderate) Office Visit Level 5 Est 59168; 02/12/16 10:46:00 CDT, Benign essential hypertension | Chronic kidney disease (CKD), stage III ( moderate) | CLARISSA on CPAP | Stasis leg ulcer | Tubular adenoma | Hypothyroid | Tension headache | Villoglandular colonic polyp | Rosacea | Primary hyperchole... Diagnosis: Hypothyroid Comment: Ordered: Office Visit Level 5 Est 26155; 02/12/16 10:46:00 CDT, Benign essential hypertension | Chronic kidney disease (CKD), stage III ( moderate) | CLARISSA on CPAP | Stasis leg ulcer | Tubular adenoma | Hypothyroid | Tension headache | Villoglandular colonic polyp | Rosacea | Primary hyperchole... Diagnosis: Lymphedema of leg Comment: Ordered: CMP; Blood, Routine Collect, 02/12/16 11:23:00 CDT, Once , Stop date 02/12/16 11:23:00 CDT, Lab Collect, Benign essential hypertension | Lymphedema of leg | Chronic kidney disease (CKD), stage III (moderate) Routine Urinalysis; Urine, Clean Catch, Routine collect, 02/12/16 11:23:00 CDT, Once, Stop date 02/12/16 11:23:00 CDT, Nurse Collect Non-Blood, Benign essential hypertension | Lymphedema of leg Office Visit Level 5 Est 48153; 02/12/16 10:46:00 CDT, Benign essential hypertension | Chronic kidney disease (CKD), stage III ( moderate) | CLARISSA on CPAP | Stasis leg ulcer | Tubular adenoma | Hypothyroid | Tension headache | Villoglandular colonic polyp | Rosacea | Primary hyperchole... Diagnosis: Morbid obesity Comment: Diagnosis: Normal pelvic exam Comment: Ordered: Pelvis and Breast exam- with or without exam G0101; 02/11 10:42:00 CDT, 1, Normal pelvic exam Diagnosis: CLARISSA on CPAP Comment: Ordered: Office Visit Level 5 Est 97692; 02/12/16 10:46:00 CDT, Benign essential hypertension | Chronic kidney disease (CKD), stage III ( moderate) | CLARISSA on CPAP | Stasis leg ulcer | Tubular adenoma | Hypothyroid | Tension headache | Villoglandular colonic polyp | Rosacea | Primary hyperchole... Diagnosis: Osteoarthritis of both knees Comment: Diagnosis: Pernicious anemia Comment: Ordered: CBC w/ Differential; Blood, Routine Collect, 02/12/16 11: 23:00 CDT, Once, Stop date 02/12/16 11:23:00 CDT, Lab Collect, Pernicious anemia | Benign essential hypertension | Chronic kidney disease (CKD), stage III (moderate) Diagnosis: Primary hypercholesterolemia Comment: Ordered: Lipid Panel; Blood, Routine Collect, 02/12/16 11:23:00 CDT, Once, Stop date 02/12/16 11:23:00 CDT, Lab Collect, Primary hypercholesterolemia Office Visit Level 5 Est 35319; 02/12/16 10:46:00 CDT, Benign essential hypertension | Chronic kidney disease (CKD), stage III ( moderate) | CLARISSA on CPAP | Stasis leg ulcer | Tubular adenoma | Hypothyroid | Tension headache | Villoglandular colonic polyp | Rosacea | Primary hyperchole... Diagnosis: Rosacea Comment: Ordered: Office Visit Level 5 Est 55107; 02/12/16 10:46:00 CDT, Benign essential hypertension | Chronic kidney disease (CKD), stage III ( moderate) | CLARISSA on CPAP | Stasis leg ulcer | Tubular adenoma | Hypothyroid | Tension headache | Villoglandular colonic polyp | Rosacea | Primary hyperchole... Diagnosis: Stasis leg ulcer Comment: Ordered: Office Visit Level 5 Est 70271; 02/12/16 10:46:00 CDT, Benign essential hypertension | Chronic kidney disease (CKD), stage III ( moderate) | CLARISSA on CPAP | Stasis leg ulcer | Tubular adenoma | Hypothyroid | Tension headache | Villoglandular colonic polyp | Rosacea | Primary hyperchole... Diagnosis: Tension headache Comment: Ordered: Office Visit Level 5 Est 73869; 02/12/16 10:46:00 CDT, Benign essential hypertension | Chronic kidney disease (CKD), stage III ( moderate) | CLARISSA on CPAP | Stasis leg ulcer | Tubular adenoma | Hypothyroid | Tension headache | Villoglandular colonic polyp | Rosacea | Primary hyperchole... Diagnosis: Tubular adenoma Comment: Ordered: Office Visit Level 5 Est 04957; 02/12/16 10:46:00 CDT, Benign essential hypertension | Chronic kidney disease (CKD), stage III ( moderate) | CLARISSA on CPAP | Stasis leg ulcer | Tubular adenoma | Hypothyroid | Tension headache | Villoglandular colonic polyp | Rosacea | Primary hyperchole... Diagnosis: Villoglandular colonic polyp Comment: Ordered: Office Visit Level 5 Est [id number]; 02/12/16 10:46:00 CDT, Benign essential hypertension | Chronic kidney disease (CKD), stage III ( moderate) | CLARISSA on CPAP | Stasis leg ulcer | Tubular adenoma | Hypothyroid | Tension headache | Villoglandular colonic polyp | Rosacea | Primary hyperchole... End of Orders ."
--- OUTSIDE RECORDS SUMMARY | 2016-10-08 15:28 | XMS REPORT | Referral Summary ---
Author Author [facility] Organization [facility] Address Unknown Phone Unavailable Care Team Providers Care [employer] Professional Name Role Phone Ricco Dangelo Primary Care Physician [phone] Encounter Date(s): 03/12/15 - 03/12/15 [facility] [address], [facility] [address] [place], [place] [address] Discharge Diagnosis: Severe obstructive sleep apnea [...] 2 Refill(s), eRx: [facility] #[id number], TAKE ONE TABLET BY MOUTH ONCE A DAY Start Date: 04/20/15 Status: Ordered Crestor 10 mg oral tablet See Instructions, TAKE ONE TABLET BY MOUTH AT BEDTIME, # 90 tabs, 2 Refill(s), eRx: [facility] #[id number], TAKE ONE TABLET BY MOUTH AT BEDTIME Start Date: 12/05/14 Status: Ordered famotidine 20 mg oral tablet See Instructions, TAKE ONE TABLET BY MOUTH TWICE A DAY, # 60 tabs, 10 Refill(s) , eRx: [facility] #[id number], TAKE ONE TABLET BY MOUTH TWICE A DAY Start Date: 11/14/14 Status: Ordered fluticasone nasal 2 sprays, Nasal, Daily, as needed for allergy symptoms, 0 Refill(s) Start Date: 12/25/13 Status: Ordered furosemide 80 mg oral tablet See Instructions, TAKE ONE-HALF TABLET BY MOUTH EVERY DAY, # 30 tabs, 4 Refill(s ), eRx: [facility] #[id number], TAKE ONE-HALF TABLET BY MOUTH EVERY DAY Start Date: 02/17/14 Status: Ordered hydrocortisone 2.5% topical cream See Instructions, APPLY VERY LIGHTLY TO FACIAL RASH TWO TIMES A DAY NEEDED, # 30 unknown unit, eRx: [facility] #[id number], APPLY VERY LIGHTLY TO FACIAL RASH TWO TIMES A DAY NEEDED Start Date: 12/19/14 Status: Ordered hydrocortisone 2.5% topical cream soniya, Topical, BID, apply very lightly to facial rash twice daily as needed, 0 Refill(s) Start Date: 12/25/13 Status: Ordered levothyroxine 25 mcg (0.025 mg) oral tablet See Instructions, TAKE ONE TABLET BY MOUTH DAILY, # 30 tabs, 4 Refill(s), eRx: [facility] #[id number], TAKE ONE TABLET BY MOUTH DAILY Start Date: 02/23/15 Status: Ordered Metafolbic Plus oral tablet See Instructions, TAKE ONE TABLET BY MOUTH DAILY, # 30 tabs, 10 Refill(s), eRx: [facility] #[id number], TAKE ONE TABLET BY MOUTH DAILY Start Date: 11/14/14 Status: Ordered pyridoxine 100 mg oral tablet 1 tabs, Oral, Daily, 0 Refill(s) Start Date: 12/25/13 Status: Ordered spironolactone 100 mg oral tablet See Instructions, TAKE ONE TABLET BY MOUTH EVERY DAY., # 30 tabs, 9 Refill(s), eRx: [facility] #[id number], TAKE ONE TABLET BY MOUTH EVERY DAY. [...]
--- OUTSIDE RECORDS SUMMARY | 2016-10-08 15:28 | XMS REPORT | Referral Summary ---
Author Author [facility] Organization [facility] Address Unknown Phone Unavailable Care Team Providers Care Filter Washer Name Role Phone Ricco Dangelo Primary Care Physician [phone] Encounter Date(s): 04/09/15 - 04/09/15 [facility] [address], [facility] [address] [place], [place] [address] Discharge Disposition: 01-Home or Self Care Attending Physician: Dean Cutler MD Referring Physician: Dean Cutler MD Vital Signs No data available for [...] MOUTH ONCE A DAY, # 30 tabs, eRx: [facility] #[id number], TAKE ONE TABLET BY MOUTH ONCE A DAY Start Date: 03/18/15 Status: Ordered Crestor 10 mg oral tablet See Instructions, TAKE ONE TABLET BY MOUTH AT BEDTIME, # 90 tabs, 2 Refill(s), eRx: [facility] #[id number], TAKE ONE TABLET BY MOUTH AT BEDTIME Start Date: 12/05/14 Status: Ordered famotidine 20 mg oral tablet See Instructions, TAKE ONE TABLET BY MOUTH TWICE A DAY, # 60 tabs, 10 Refill(s) , eRx: [facility] #[id number], TAKE ONE TABLET BY MOUTH TWICE A DAY Start Date: 11/14/14 Status: Ordered fluticasone nasal 2 sprays, Nasal, Daily, as needed for allergy symptoms, 0 Refill(s) Start Date: 12/25/13 Status: Ordered furosemide 80 mg oral tablet See Instructions, TAKE ONE-HALF TABLET BY MOUTH EVERY DAY, # 30 tabs, 4 Refill(s ), eRx: [facility] #[id number], TAKE ONE-HALF TABLET BY MOUTH EVERY DAY Start Date: 02/17/14 Status: Ordered hydrocortisone 2.5% topical cream See Instructions, APPLY VERY LIGHTLY TO FACIAL RASH TWO TIMES A DAY NEEDED, # 30 unknown unit, eRx: [facility] #[id number], APPLY VERY LIGHTLY TO FACIAL RASH TWO TIMES A DAY NEEDED Start Date: 12/19/14 Status: Ordered hydrocortisone 2.5% topical cream soniya, Topical, BID, apply very lightly to facial rash twice daily as needed, 0 Refill(s) Start Date: 12/25/13 Status: Ordered levothyroxine 25 mcg (0.025 mg) oral tablet See Instructions, TAKE ONE TABLET BY MOUTH DAILY, # 30 tabs, 4 Refill(s), eRx: [facility] #[id number], TAKE ONE TABLET BY MOUTH DAILY Start Date: 02/23/15 Status: Ordered Metafolbic Plus oral tablet See Instructions, TAKE ONE TABLET BY MOUTH DAILY, # 30 tabs, 10 Refill(s), eRx: [facility] #[id number], TAKE ONE TABLET BY MOUTH DAILY Start Date: 11/14/14 Status: Ordered pyridoxine 100 mg oral tablet 1 tabs, Oral, Daily, 0 Refill(s) Start Date: 12/25/13 Status: Ordered spironolactone 100 mg oral tablet See Instructions, TAKE ONE TABLET BY MOUTH EVERY DAY., # 30 tabs, 9 Refill(s), eRx: [facility] #[id number], TAKE ONE TABLET BY MOUTH EVERY DAY. [...] 38 Assessment and Plan Extracted from: Title: CPAP check cpap function Author: Jessie Lang HEAT PLANT SPECIALIST Date: 04/09/15 The patient's M series cpap is working fine. Pressure is accurate at 10cm per manometer. The patient's complaint is that her pressure is too much. After her visit with Emiliana I instructed her how to use the ramp feature and adjust the humidity. Also, per Emiliana's request, she is fitted with an eson: medium nasal mask. She has a chinstrap at home. The pillow mask was returned to us.
--- OUTSIDE RECORDS SUMMARY | 2016-10-08 15:28 | XMS REPORT | Continuity of Care Document ---
Author Author [facility] Organization [facility] Address Unknown Phone Unavailable Care Team Providers Care Body Recall Instructor Name Role Phone HUEY GOLDSTEIN MD Primary Care Physician [phone] Insurance Providers Payer Name Policy Number Subscriber Name Relationship Medicare [id number] Reta Vivas 17 Self [facility] Plan [id number] Reat Vivas 17 Self Advance Directives Directive Response Recorded Date/Time Advanced Directives Type DPOA for Healthcare 01/14/14 4:10pm Resuscitation Documents on File No 01/14/14 4:10pm Problems No known problems or medical conditions. Medications Medication Dose Route Sig Days/Qty Instructions Order Date Discontinued Date Status Allopurinol 300 Mg PO DAILY 01/14/14 Active Rosuvastatin Calcium 10 Mg PO DAILY 01/14/14 Active Famotidine 20 Mg PO TWICE A DAY 01/14/14 Active Furosemide 40 Mg PO DAILY 01/14/14 Active [Hydrocortisone 2.5%] 1 Applic TOP DAILY 01/14/14 Active Spironolactone 100 Mg PO DAILY 01/14/14 Active Tramadol Hcl 50 Mg PO NEEDED 01/14/14 Active [Metafolbic] 1 Tab PO DAILY 01/14/14 Active Multivitamins 1 Tab PO DAILY 01/14/14 Active Pyridoxine Hcl 100 Mg PO DAILY 01/14/14 Active Ca Cmb No.1/Vit D3/B-6/Fa/B12 1 Each PO DAILY 01/14/14 Active Hydrocodone Bit/Acetaminophen 1 Tab PO NEEDED 01/14/14 Active Social History Social History Problem Response Recorded Date/Time Smoking Status Former smoker 01/14/2014 4:12pm Chewing Tobacco Status No 01/14/2014 4:12pm Hx Substance Use No 01/14/2014 4:12pm Hx Alcohol Use No 01/14/2014 4:12pm Has the pt used tobacco in the last 12 months No 01/14/2014 4:12pm Hospital Discharge Instructions No hospital discharge instructions. Plan of Care No plan of care. Functional Status No functional status results. Allergies, Adverse Reactions, Alerts Allergen Type Severity Reaction Status Last Updated Mupirocin Allergy Unknown Active 01/14/14 Sulfamethoxazole Allergy Severe RASH Active 01/14/14 Trimethoprim Allergy Unknown Active 01/14/14 Immunizations Name Given Type Hx Influenza Vaccination Y "A LONG TIME AGO, I GET SICK FOR MONTHS AND MONTHS SO I QUIT TAKING THEM" Historical Hx Pneumococcal Vaccination Y CAN'T REMEMBER WHEN Historical Hx Influenza Vaccination Y "A LONG TIME AGO, I GET SICK FOR MONTHS AND MONTHS SO I QUIT TAKING THEM" Historical Vital Signs Acute Vital Signs Vital Response Date/Time Temperature (Fahrenheit) 97.1 deg F (96.8 - 99.1) Temperature (Calculated Celsius) 36.35104 degrees C (36.0 - 37.3) Temperature Source Temporal Pulse Rate (adult) 70 bpm (60 - 100) Respiratory Rate 16 breaths/min (10 - 20) O2 Sat by Pulse Oximetry 94 % (90 - 100) Blood Pressure 106/44 mm Hg Blood Pressure Source Automatic Cuff Height 4 ft 10.5 in Weight 294 lb Body Mass Index 60.0 kg/m^2 Results Test Source Date Result Interp. Ref. Range Comments Arterial Blood Base Excess February 06, 2008 3:03pm 1.7 MMOL/L N -2.0-2.0 Arterial Blood HCO3 February 06, 2008 3:03pm 27 MEQ/L H 22-26 Arterial Blood Oxygen Content February 06, 2008 3:03pm Not Performed - Arterial Blood Partial Pressure CO2 February 06, 2008 3:03pm 42 MMHG N 34- 45 Arterial Blood Total CO2 February 06, 2008 3:03pm 27.9 MEQ/L H 23-27 Arterial Blood pH February 06, 2008 3:03pm 7.410 N 7.350-7.450 Blood Gas Oxygen Saturation February 06, 2008 3:03pm 93.0 % L 95.0-98.0 Blood Gas Tidal Volume February 06, 2008 3:03pm Not Performed 0-1200 Blood Gas Vent Rate February 06, 2008 3:03pm Not Performed 0-30 Oxygen Delivery Method (LAB) February 06, 2008 3:03pm Room air - Lab Scanned Report November 12, 2010 2:24pm LAB TEST FORM REQUEST [id number] - Arterial Blood pO2 at Patient Temp February 06, 2008 3:03pm 67 MMHG L 80- 100 Procedures Procedure Status Date Provider(s) Cataract surgery completed 01/15/14 TEENA GARLAND MD
--- OUTSIDE RECORDS SUMMARY | 2016-10-08 15:28 | XMS REPORT | Referral Summary ---
Author Author [facility] Organization [facility] Address Unknown Phone Unavailable Care Team Providers Care Manager Beauty Name Role Phone Ricco Dangelo Primary Care Physician [phone] Encounter Date(s): 03/12/15 - 03/12/15 [facility] [address], [facility] [address] [place], [place] [address] Discharge Diagnosis: Severe obstructive sleep [...] DAY, # 30 tabs, 2 Refill(s), eRx: [facility] #[id number], TAKE ONE TABLET BY MOUTH ONCE A DAY Start Date: 04/20/15 Status: Ordered Crestor 10 mg oral tablet See Instructions, TAKE ONE TABLET BY MOUTH AT BEDTIME, # 90 tabs, 2 Refill(s), eRx: [facility] #[id number], TAKE ONE TABLET BY MOUTH AT BEDTIME Start Date: 12/05/14 Status: Ordered famotidine 20 mg oral tablet See Instructions, TAKE ONE TABLET BY MOUTH TWICE A DAY, # 60 tabs, 10 Refill(s) , eRx: [facility] #[id number], TAKE ONE TABLET BY MOUTH TWICE A DAY Start Date: 11/14/14 Status: Ordered fluticasone nasal 2 sprays, Nasal, Daily, as needed for allergy symptoms, 0 Refill(s) Start Date: 12/25/13 Status: Ordered furosemide 80 mg oral tablet See Instructions, TAKE ONE-HALF TABLET BY MOUTH EVERY DAY, # 30 tabs, 4 Refill(s ), eRx: [facility] #[id number], TAKE ONE-HALF TABLET BY MOUTH EVERY DAY Start Date: 02/17/14 Status: Ordered hydrocortisone 2.5% topical cream See Instructions, APPLY VERY LIGHTLY TO FACIAL RASH TWO TIMES A DAY NEEDED, # 30 unknown unit, eRx: [facility] #[id number], APPLY VERY LIGHTLY TO FACIAL RASH TWO TIMES A DAY NEEDED Start Date: 12/19/14 Status: Ordered hydrocortisone 2.5% topical cream soniya, Topical, BID, apply very lightly to facial rash twice daily as needed, 0 Refill(s) Start Date: 12/25/13 Status: Ordered levothyroxine 25 mcg (0.025 mg) oral tablet See Instructions, TAKE ONE TABLET BY MOUTH DAILY, # 30 tabs, 4 Refill(s), eRx: [facility] #[id number], TAKE ONE TABLET BY MOUTH DAILY Start Date: 02/23/15 Status: Ordered Metafolbic Plus oral tablet See Instructions, TAKE ONE TABLET BY MOUTH DAILY, # 30 tabs, 10 Refill(s), eRx: [facility] #[id number], TAKE ONE TABLET BY MOUTH DAILY Start Date: 11/14/14 Status: Ordered pyridoxine 100 mg oral tablet 1 tabs, Oral, Daily, 0 Refill(s) Start Date: 12/25/13 Status: Ordered spironolactone 100 mg oral tablet See Instructions, TAKE ONE TABLET BY MOUTH EVERY DAY., # 30 tabs, 9 Refill(s), eRx: [facility] #[id number], TAKE ONE TABLET BY MOUTH EVERY DAY. [...]
--- OUTSIDE RECORDS SUMMARY | 2016-10-08 15:28 | XMS REPORT | Referral Summary ---
Author Author [facility] Organization [facility] Address Unknown Phone Unavailable Care Team Providers Care Glass Belt Sander Name Role Phone Ricco Dangelo Primary Care Physician [phone] Encounter Date(s): 04/09/15 - 04/09/15 [facility] [address], [facility] [address] [place], [place] [address] Discharge Disposition: 01-Home or Self Care [...] DAY, # 30 tabs, 1 Refill(s), eRx: [facility] #[id number], TAKE ONE TABLET BY MOUTH ONCE A DAY Start Date: 09/21/15 Status: Ordered Crestor 10 mg oral tablet See Instructions, TAKE ONE TABLET BY MOUTH AT BEDTIME, # 90 tabs, eRx: [facility] #[id number], TAKE ONE TABLET BY MOUTH AT BEDTIME Start Date: 10/02/15 Status: Ordered famotidine 20 mg oral tablet See Instructions, TAKE ONE TABLET BY MOUTH TWICE A DAY, # 60 tabs, 1 Refill(s), eRx: [facility] #[id number], TAKE ONE TABLET BY MOUTH TWICE A DAY Start Date: 10/12/15 Status: Ordered fluticasone nasal 2 sprays, Nasal, Daily, as needed for allergy symptoms, 0 Refill(s) Start Date: 12/25/13 Status: Ordered furosemide 80 mg oral tablet See Instructions, TAKE ONE-HALF TABLET BY MOUTH EVERY DAY, # 30 tabs, 3 Refill(s ), eRx: [facility] #[id number], TAKE ONE-HALF TABLET BY MOUTH EVERY DAY Start Date: 05/18/15 Status: Ordered hydrocortisone 2.5% topical cream See Instructions, APPLY VERY LIGHTLY TO FACIAL RASH TWO TIMES A DAY NEEDED, # 30 unknown unit, eRx: [facility] #[id number], APPLY VERY LIGHTLY TO FACIAL RASH TWO TIMES A DAY NEEDED Start Date: 12/19/14 Status: Ordered levothyroxine 25 mcg (0.025 mg) oral tablet See Instructions, TAKE ONE TABLET BY MOUTH DAILY, # 30 tabs, 3 Refill(s), eRx: [facility] #[id number], TAKE ONE TABLET BY MOUTH DAILY Start Date: 08/03/15 Status: Ordered Metafolbic Plus oral tablet See Instructions, TAKE ONE TABLET BY MOUTH DAILY, # 30 tabs, eRx: [facility] #[id number], TAKE ONE TABLET BY MOUTH DAILY Start Date: 10/19/15 Status: Ordered pyridoxine 100 mg oral tablet 1 tabs, Oral, Daily, 0 Refill(s) Start Date: 12/25/13 Status: Ordered spironolactone 100 mg oral tablet See Instructions, TAKE ONE TABLET BY MOUTH EVERY DAY., # 30 tabs, 9 Refill(s), eRx: [facility] #[id number], TAKE ONE TABLET BY MOUTH EVERY DAY. [...] CPAP check cpap function Author: Jessie Lang RESPIRATORY CARE TECHNICIAN Date: 04/09/15 The patient's M series cpap [...]
--- OUTSIDE RECORDS SUMMARY | 2016-10-08 15:28 | XMS REPORT | Referral Summary ---
Author Author [facility] [place], [facility] Organization [facility] [place] [facility] Address Unknown Phone Unavailable Care Team Providers Care Drafter [employer]otive Design Name Role Phone Ricco Dangelo Primary Care Physician [phone] Encounter VC Date(s): 05/15/15 - 05/15/15 [facility] [place], [address] [place] [address] Discharge Disposition: 01-Home or Self Care Attending Physician: Joshua Dangelo MD Admitting Physician: Joshua Dangelo MD Vital Signs Most recent to 1 oldest [Reference Range]: Peripheral Pulse 80 bpm Rate [60-100 bpm] (05/15/15 9:44 AM) Respiratory Rate 18 br/min [14-20 br/min] (05/15/15 9:44 AM) Blood Pressure 122/60 mmHg [90-140/60-90 mmHg] (05/15/15 9:44 AM) SpO2 91 % (05/15/15 9:44 AM) Problem List Condition Effective Dates Status [...] DAY, # 30 tabs, 2 Refill(s), eRx: [facility] #[id number], TAKE ONE TABLET BY MOUTH ONCE A DAY Start Date: 04/20/15 Status: Ordered Crestor 10 mg oral tablet See Instructions, TAKE ONE TABLET BY MOUTH AT BEDTIME, # 90 tabs, 2 Refill(s), eRx: [facility] #[id number], TAKE ONE TABLET BY MOUTH AT BEDTIME Start Date: 12/05/14 Status: Ordered famotidine 20 mg oral tablet See Instructions, TAKE ONE TABLET BY MOUTH TWICE A DAY, # 60 tabs, 10 Refill(s) , eRx: [facility] #[id number], TAKE ONE TABLET BY MOUTH TWICE A DAY Start Date: 11/14/14 Status: Ordered fluticasone nasal 2 sprays, Nasal, Daily, as needed for allergy symptoms, 0 Refill(s) Start Date: 12/25/13 Status: Ordered furosemide 80 mg oral tablet See Instructions, TAKE ONE-HALF TABLET BY MOUTH EVERY DAY, # 30 tabs, 4 Refill(s ), eRx: [facility] #[id number], TAKE ONE-HALF TABLET BY MOUTH EVERY DAY Start Date: 02/17/14 Status: Ordered hydrocortisone 2.5% topical cream See Instructions, APPLY VERY LIGHTLY TO FACIAL RASH TWO TIMES A DAY NEEDED, # 30 unknown unit, eRx: [facility] #[id number], APPLY VERY LIGHTLY TO FACIAL RASH TWO TIMES A DAY NEEDED Start Date: 12/19/14 Status: Ordered hydrocortisone 2.5% topical cream soniya, Topical, BID, apply very lightly to facial rash twice daily as needed, 0 Refill(s) Start Date: 12/25/13 Status: Ordered levothyroxine 25 mcg (0.025 mg) oral tablet See Instructions, TAKE ONE TABLET BY MOUTH DAILY, # 30 tabs, 4 Refill(s), eRx: [facility] #[id number], TAKE ONE TABLET BY MOUTH DAILY Start Date: 02/23/15 Status: Ordered Metafolbic Plus oral tablet See Instructions, TAKE ONE TABLET BY MOUTH DAILY, # 30 tabs, 10 Refill(s), eRx: [facility] #[id number], TAKE ONE TABLET BY MOUTH DAILY Start Date: 11/14/14 Status: Ordered pyridoxine 100 mg oral tablet 1 tabs, Oral, Daily, 0 Refill(s) Start Date: 12/25/13 Status: Ordered spironolactone 100 mg oral tablet See Instructions, TAKE ONE TABLET BY MOUTH EVERY DAY., # 30 tabs, 9 Refill(s), eRx: [facility] #[id number], TAKE ONE TABLET BY MOUTH EVERY DAY. [...] to 1 oldest [Reference Range]: WBC [4.8-10.8 7.0 10*3/uL 10*3/uL] (05/15/15 10:30 AM) RBC [4.00-5.20] 3.59 *LOW* (05/15/15 10:30 AM) Hgb [12.0-16.0 11.4 gm/dL gm/dL] *LOW* (05/15/15 10:30 AM) Hct [37.0-47.0 %] 34.7 % *LOW* (05/15/15 10:30 AM) MCV [82.0-99.0 fL] 96.7 fL (05/15/15 10:30 AM) MCH [27.0-32.0 pg] 31.8 pg (05/15/15 10:30 AM) MCHC [32.0-36.0 32.9 gm/dL gm/dL] (05/15/15 10:30 AM) RDW [11.5-14.5 %] 15.4 % *HI* (05/15/15 10:30 AM) Platelet [150-400 92 10*3/uL 10*3/uL] *LOW* (05/15/15 10:30 AM) MPV [8.8-14.8 fL] 12.1 fL (05/15/15 10:30 AM) Immature 1.4 % Granulocytes *HI* [0.0-1.0 %] (05/15/15 10:30 AM) Neutrophils [51-75 59 % %] (05/15/15 10:30 AM) Lymphocytes [20-46 20 % %] (05/15/15 10:30 AM) Monocytes [4-11 %] 20 % *HI* (05/15/15 10:30 AM) Eosinophils [0-4 %] 0 % (05/15/15 10:30 AM) Basophils [0-2 %] 0 % (05/15/15 10:30 AM) Neutro Absolute 4.10 10*3 [1.90-7.00 10*3] (05/15/15 10:30 AM) Lymph Absolute 1.40 10*3 [0.80-3.30 10*3] (05/15/15 10:30 AM) Beckham Absolute 1.37 10*3 [0.30-1.00 10*3] *HI* (05/15/15 10:30 AM) Eos Absolute 0.01 10*3 [0.00-0.50 10*3] (05/15/15 10:30 AM) Baso Absolute 0.01 10*3 [0.00-0.20 10*3] (05/15/15 10:30 AM) Chemistry Most recent to 1 oldest [Reference Range]: Sodium Lvl [135-144 139 mEq/L mEq/L] (05/15/15 10:30 AM) Potassium Lvl 4.6 mEq/L [3.5-5.2 mEq/L] (05/15/15 10:30 AM) Chloride [99-111 106 mEq/L mEq/L] (05/15/15 10:30 AM) CO2 [22-31 mEq/L] 25 mEq/L (05/15/15 10:30 AM) AGAP [3-20] 8 (05/15/15 10:30 AM) BUN [10-20 mg/dL] 30 mg/dL *HI* (05/15/15 10:30 AM) Glucose Lvl [70-99 99 mg/dL mg/dL] (05/15/15 10:30 AM) Creatinine Lvl 1.18 mg/dL [0.57-1.11 mg/dL] *HI* (05/15/15 10:30 AM) eGFR [>60 mL/min] 44 mL/min 1 *ABN* (05/15/15 10:30 AM) Calcium Lvl 9.4 mg/dL [8.9-10.5 mg/dL] (05/15/15 10:30 AM) Albumin Lvl [3.4-4.8 4.3 gm/dL gm/dL] (05/15/15 10:30 AM) Total Protein 7.4 gm/dL [6.2-8.1 gm/dL] (05/15/15 10:30 AM) Globulin [1.8-4.0 3.1 gm/dL gm/dL] (05/15/15 10:30 AM) ALT [0-55 U/L] 23 U/L (05/15/15 10:30 AM) AST [5-34 U/L] 29 U/L (05/15/15 10:30 AM) Alk Phos [40-150 103 U/L U/L] (05/15/15 10:30 AM) Bili Total [0.2-1.2 0.4 mg/dL mg/dL] (05/15/15 10:30 AM) 1Result Comment: Multiply eGFR results [...] Patient Education Author: Joshua Dangelo MD Date: Allergy Edema Edema is an abnormal buildup of fluids in your bodytissues. Edema is somewhat dependent on gravity to pull the fluid to the lowest place in your body. That makes the condition more common in the legs and thighs (lower extremities). Painless swelling of the feet and ankles is common and becomes more likely as you get older. It is also common in looser tissues, like around your eyes. When the affected area is squeezed, the fluid may move out of that spot and leave a dent for a few moments. This dent is called pitting. CAUSES There are many possible causes of edema. Eating too much salt and being on your feet or sitting for a long time can cause edema in your legs and ankles. Hot weather may make edema worse. Common medical causes of edema include: Heart failure. Liver disease. Kidney disease. Weak blood vessels in your legs. Cancer. An injury. . Some medications. Obesity. SYMPTOMS Edema is usually painless.Your skin may look swollen or shiny. DIAGNOSIS Your health care provider may be able to diagnose edema by asking about your medical history and doing a physical exam. You may need to have tests such as X- rays, an electrocardiogram, or blood tests to check for medical conditions that may cause edema. TREATMENT Edema treatment depends on the cause. If you have heart, liver, or kidney disease, you need the treatment appropriate for these conditions. General treatment may include: Elevation of the affected body part above the level of your heart. Compression of the affected body part. Pressure from elastic bandages or support stockings squeezes the tissues and forces fluid back into the blood vessels. This keeps fluid from entering the tissues. Restriction of fluid and salt intake. Use of a water pill (diuretic). These medications are appropriate only for some types of edema. They pull fluid out of your body and make you urinate more often. This gets rid of fluid and reduces swelling, but diuretics can have side effects. Only use diuretics as directed by your health care provider. HOME CARE INSTRUCTIONS Keep the affected body part above the level of your heart when you are lying down. Do not sit still or stand for prolonged periods. Do not put anything directly under your knees when lying down. Do not wear constricting clothing or garters on your upper legs. Exercise your legs to work the fluid back into your blood vessels. This may help the swelling go down. Wear elastic bandages or support stockings to reduce ankle swelling as directed by your health care provider. Eat a low-salt diet to reduce fluid if your health care provider recommends it. Only take medicines as directed by your health care provider. SEEK MEDICAL CARE IF: Your edema is not responding to treatment. You have heart, liver, or kidney disease and notice symptoms of edema. You have edema in your legs that does not improve after elevating them. You have sudden and unexplained weight gain. SEEK IMMEDIATE MEDICAL CARE IF: You develop shortness of breath or chest pain. You cannot breathe when you lie down. You develop pain, redness, or warmth in the swollen areas. You have heart, liver, or kidney disease and suddenly get edema. You have a fever and your symptoms suddenly get worse. MAKE SURE YOU: Understand these instructions. Will watch your condition. Will get help right away if you are not doing well or get worse. Document Released: 06/19/2006 Document Revised: 11/03/2014 Document Reviewed: [facility] Patient Information 2015 [employer] [facility]. This information is not intended to replace advice given to you by your health care provider. Make sure you discuss any questions you have with your health care provider. No follow up information was provided. Extracted from: Title: morbid obesity, HTN Author: Joshua Dangelo MD Date: 05/15/15 Impression and Plan Diagnosis Anemia (ELS67-AR D64.9, Working, Medical). Benign essential hypertension (QDF38-NS I10, Working, Medical). Chronic kidney disease (CKD), stage III (moderate) (DRK18-QM N18.3, Working, Medical). High cholesterol (QEG08-JQ E78.0, Working, Medical). Adult hypothyroidism (ZGM15-PU E03.9, Working, Medical). Lymphedema of leg (OHC02-PR I89.0, Working, Medical). Morbid obesity (DHO51-HQ E66.01, Working, Medical). CLARISSA (obstructive sleep apnea) (HZC55-JD G47.33, Working, Medical). Osteoarthritis of both knees (MMM61-MC M17.0, Working, Medical). Thrombocytopenia (LJT66-BH D69.6, Working, Medical). Plan: 1) You refused the flu shot. 2) Continue your current meds. 3) Get lab today. 4) See me in 3 months and as needed. 5) You refused lymphedema PT at this time. 6) Scripts for an electric bed and an electric wheelchair faxed to [facility], per your request. , I recommend the use of an electric wheelchair on bad days, when your right knee is hurting and your hands are hurting too much to use the manual wheelchair or the cane, for walking in your home to the bedroom, bathroom, or kitchen for all of these ADLs. Currently this is 2-3 days/week, and may become more often if your condition worsens. A scooter would not likely work, due to the large tuning radius required, since your home has limited space. . Orders Orders (Selected) Outpatient Orders Ordered Office Visit Level 4 Est 92878: Future (On Hold) CBC w/ Differential: CBC w/ Differential: CMP: . Dx/Order Association Plan: Diagnosis: Adult hypothyroidism Comment: Diagnosis: Anemia Comment: Diagnosis: Benign essential hypertension Comment: Ordered: Office Visit Level 4 Est 70127; 05/15/15 10:00:00 EQUIPMENT OPERATOR, Benign essential hypertension | Chronic kidney disease (CKD), stage III ( moderate) | High cholesterol | Lymphedema of leg Diagnosis: Chronic kidney disease (CKD), stage III (moderate) Comment: Ordered: Office Visit Level 4 Est 52832; 05/15/15 10:00:00 EQUIPMENT OPERATOR, Benign essential hypertension | Chronic kidney disease (CKD), stage III ( moderate) | High cholesterol | Lymphedema of leg Diagnosis: High cholesterol Comment: Ordered: Office Visit Level 4 Est 92781; 05/15/15 10:00:00 EQUIPMENT OPERATOR, Benign essential hypertension | Chronic kidney disease (CKD), stage III ( moderate) | High cholesterol | Lymphedema of leg Diagnosis: Lymphedema of leg Comment: Ordered: Office Visit Level 4 Est 66039; 05/15/15 10:00:00 EQUIPMENT OPERATOR, Benign essential hypertension | Chronic kidney disease (CKD), stage III ( moderate) | High cholesterol | Lymphedema of leg Diagnosis: Morbid obesity Comment: Diagnosis: CLARISSA (obstructive sleep apnea) Comment: Diagnosis: Osteoarthritis of both knees Comment: Diagnosis: Thrombocytopenia Comment: Diagnosis: Benign essential hypertension Comment: Diagnosis: Chronic kidney disease (CKD), stage III (moderate) Comment: Diagnosis: Benign essential hypertension Comment: End of Orders ."
--- OUTSIDE RECORDS SUMMARY | 2016-10-08 15:28 | XMS REPORT | Referral Summary ---
Author Author [facility] Organization [facility] Address Unknown Phone Unavailable Care Team Providers Care Reclaimer Name Role Phone Ricco Dangleo Primary Care Physician [phone] Encounter Date(s): 03/12/15 - 03/12/15 [facility] [address], [facility] [address] [place], [place] [address] Discharge Diagnosis: Severe obstructive sleep apnea [...] DAY, # 30 tabs, 2 Refill(s), eRx: [facility] #[id number], TAKE ONE TABLET BY MOUTH ONCE A DAY Start Date: 04/20/15 Status: Ordered Crestor 10 mg oral tablet See Instructions, TAKE ONE TABLET BY MOUTH AT BEDTIME, # 90 tabs, 2 Refill(s), eRx: [facility] #[id number], TAKE ONE TABLET BY MOUTH AT BEDTIME Start Date: 12/05/14 Status: Ordered famotidine 20 mg oral tablet See Instructions, TAKE ONE TABLET BY MOUTH TWICE A DAY, # 60 tabs, 10 Refill(s) , eRx: [facility] #[id number], TAKE ONE TABLET BY MOUTH TWICE A DAY Start Date: 11/14/14 Status: Ordered fluticasone nasal 2 sprays, Nasal, Daily, as needed for allergy symptoms, 0 Refill(s) Start Date: 12/25/13 Status: Ordered furosemide 80 mg oral tablet See Instructions, TAKE ONE-HALF TABLET BY MOUTH EVERY DAY, # 30 tabs, 4 Refill(s ), eRx: [facility] #[id number], TAKE ONE-HALF TABLET BY MOUTH EVERY DAY Start Date: 02/17/14 Status: Ordered hydrocortisone 2.5% topical cream See Instructions, APPLY VERY LIGHTLY TO FACIAL RASH TWO TIMES A DAY NEEDED, # 30 unknown unit, eRx: [facility] #[id number], APPLY VERY LIGHTLY TO FACIAL RASH TWO TIMES A DAY NEEDED Start Date: 12/19/14 Status: Ordered hydrocortisone 2.5% topical cream soniya, Topical, BID, apply very lightly to facial rash twice daily as needed, 0 Refill(s) Start Date: 12/25/13 Status: Ordered levothyroxine 25 mcg (0.025 mg) oral tablet See Instructions, TAKE ONE TABLET BY MOUTH DAILY, # 30 tabs, 4 Refill(s), eRx: [facility] #[id number], TAKE ONE TABLET BY MOUTH DAILY Start Date: 02/23/15 Status: Ordered Metafolbic Plus oral tablet See Instructions, TAKE ONE TABLET BY MOUTH DAILY, # 30 tabs, 10 Refill(s), eRx: [facility] #[id number], TAKE ONE TABLET BY MOUTH DAILY Start Date: 11/14/14 Status: Ordered pyridoxine 100 mg oral tablet 1 tabs, Oral, Daily, 0 Refill(s) Start Date: 12/25/13 Status: Ordered spironolactone 100 mg oral tablet See Instructions, TAKE ONE TABLET BY MOUTH EVERY DAY., # 30 tabs, 9 Refill(s), eRx: [facility] #[id number], TAKE ONE TABLET BY MOUTH EVERY DAY. [...]
--- OUTSIDE RECORDS SUMMARY | 2016-10-08 15:29 | XMS REPORT | Referral Summary ---
Author Author [facility], [facility] Organization [facility] Address Unknown Phone Unavailable Care Team Providers Care Social Media Marketing Specialist Name Role Phone Ricco Dangelo Primary Care Physician [phone] Encounter Date(s): 03/12/15 - 03/12/15 [facility], [facility] [address], [facility] [address] [place], [place] [address] Discharge Diagnosis: Severe obstructive sleep [...] DAY, # 30 tabs, 2 Refill(s), eRx: [facility] #[id number], TAKE ONE TABLET BY MOUTH ONCE A DAY Start Date: 04/20/15 Status: Ordered Crestor 10 mg oral tablet See Instructions, TAKE ONE TABLET BY MOUTH AT BEDTIME, # 90 tabs, 2 Refill(s), eRx: [facility] #[id number], TAKE ONE TABLET BY MOUTH AT BEDTIME Start Date: 12/05/14 Status: Ordered famotidine 20 mg oral tablet See Instructions, TAKE ONE TABLET BY MOUTH TWICE A DAY, # 60 tabs, 10 Refill(s) , eRx: [facility] #[id number], TAKE ONE TABLET BY MOUTH TWICE A DAY Start Date: 11/14/14 Status: Ordered fluticasone nasal 2 sprays, Nasal, Daily, as needed for allergy symptoms, 0 Refill(s) Start Date: 12/25/13 Status: Ordered furosemide 80 mg oral tablet See Instructions, TAKE ONE-HALF TABLET BY MOUTH EVERY DAY, # 30 tabs, 4 Refill(s ), eRx: [facility] #[id number], TAKE ONE-HALF TABLET BY MOUTH EVERY DAY Start Date: 02/17/14 Status: Ordered hydrocortisone 2.5% topical cream See Instructions, APPLY VERY LIGHTLY TO FACIAL RASH TWO TIMES A DAY NEEDED, # 30 unknown unit, eRx: [facility] #[id number], APPLY VERY LIGHTLY TO FACIAL RASH TWO TIMES A DAY NEEDED Start Date: 12/19/14 Status: Ordered hydrocortisone 2.5% topical cream soniya, Topical, BID, apply very lightly to facial rash twice daily as needed, 0 Refill(s) Start Date: 12/25/13 Status: Ordered levothyroxine 25 mcg (0.025 mg) oral tablet See Instructions, TAKE ONE TABLET BY MOUTH DAILY, # 30 tabs, 4 Refill(s), eRx: [facility] #[id number], TAKE ONE TABLET BY MOUTH DAILY Start Date: 02/23/15 Status: Ordered Metafolbic Plus oral tablet See Instructions, TAKE ONE TABLET BY MOUTH DAILY, # 30 tabs, 10 Refill(s), eRx: [facility] #[id number], TAKE ONE TABLET BY MOUTH DAILY Start Date: 11/14/14 Status: Ordered pyridoxine 100 mg oral tablet 1 tabs, Oral, Daily, 0 Refill(s) Start Date: 12/25/13 Status: Ordered spironolactone 100 mg oral tablet See Instructions, TAKE ONE TABLET BY MOUTH EVERY DAY., # 30 tabs, 9 Refill(s), eRx: [facility] #[id number], TAKE ONE TABLET BY MOUTH EVERY DAY. [...]
--- OUTSIDE RECORDS SUMMARY | 2016-10-08 15:29 | XMS REPORT | Referral Summary ---
Author Author [facility] Organization [facility] Address Unknown Phone Unavailable Care Team Providers Care Supervisor Kennel Name Role Phone Ricco Dangelo Primary Care Physician [phone] Encounter Date(s): 08/13/15 - 08/13/15 [facility], [facility] [address], [facility] [address] [place], [place] [address] Discharge Diagnosis: CLARISSA (obstructive sleep apnea) Discharge Disposition: 01-Home or Self Care Attending Physician: Emiliana Jean Admitting Physician: Emiliana Jean Vital Signs Most recent to 1 oldest [Reference Range]: Peripheral Pulse 68 bpm Rate [60-100 bpm] (08/13/15 12:40 PM) Blood Pressure 132/70 mmHg [90-140/60-90 mmHg] (08/13/15 12:40 PM) SpO2 91 % (08/13/15 12:40 PM) Problem List Condition Effective Dates Status [...] DAY, # 30 tabs, 1 Refill(s), eRx: [facility] #[id number], TAKE ONE TABLET BY MOUTH ONCE A DAY Start Date: 07/20/15 Status: Ordered Crestor 10 mg oral tablet See Instructions, TAKE ONE TABLET BY MOUTH AT BEDTIME, # 90 tabs, 2 Refill(s), eRx: [facility] #[id number], TAKE ONE TABLET BY MOUTH AT BEDTIME Start Date: 12/05/14 Status: Ordered famotidine 20 mg oral tablet See Instructions, TAKE ONE TABLET BY MOUTH TWICE A DAY, # 60 tabs, 10 Refill(s) , eRx: [facility] #[id number], TAKE ONE TABLET BY MOUTH TWICE A DAY Start Date: 11/14/14 Status: Ordered fluticasone nasal 2 sprays, Nasal, Daily, as needed for allergy symptoms, 0 Refill(s) Start Date: 12/25/13 Status: Ordered furosemide 80 mg oral tablet See Instructions, TAKE ONE-HALF TABLET BY MOUTH EVERY DAY, # 30 tabs, 3 Refill(s ), eRx: [facility] #[id number], TAKE ONE-HALF TABLET BY MOUTH EVERY DAY Start Date: 05/18/15 Status: Ordered hydrocortisone 2.5% topical cream See Instructions, APPLY VERY LIGHTLY TO FACIAL RASH TWO TIMES A DAY NEEDED, # 30 unknown unit, eRx: [facility] #[id number], APPLY VERY LIGHTLY TO FACIAL RASH TWO TIMES A DAY NEEDED Start Date: 12/19/14 Status: Ordered hydrocortisone 2.5% topical cream soniya, Topical, BID, apply very lightly to facial rash twice daily as needed, 0 Refill(s) Start Date: 12/25/13 Status: Ordered levothyroxine 25 mcg (0.025 mg) oral tablet See Instructions, TAKE ONE TABLET BY MOUTH DAILY, # 30 tabs, 3 Refill(s), eRx: [facility] #[id number], TAKE ONE TABLET BY MOUTH DAILY Start Date: 08/03/15 Status: Ordered Metafolbic Plus oral tablet See Instructions, TAKE ONE TABLET BY MOUTH DAILY, # 30 tabs, 10 Refill(s), eRx: [facility] #[id number], TAKE ONE TABLET BY MOUTH DAILY Start Date: 11/14/14 Status: Ordered pyridoxine 100 mg oral tablet 1 tabs, Oral, Daily, 0 Refill(s) Start Date: 12/25/13 Status: Ordered spironolactone 100 mg oral tablet See Instructions, TAKE ONE TABLET BY MOUTH EVERY DAY., # 30 tabs, 9 Refill(s), eRx: [facility] #[id number], TAKE ONE TABLET BY MOUTH EVERY DAY. [...] toxicity 1990 Cholecystectomy 1975 Appendectomy 1974 section 1964 section 1963 Dilation and curettage [...] Office Visit Note Author: Emiliana Jean Date: 08/13/15 Assessment/Plan CLARISSA (obstructive sleep apnea) - Adequate treatment with CPAP symptomatically at current pressure withgood adherence to therapy. She does have a broken flow sensor on her machine, that is >5 years and nonserviceable. Will send an order to [facility] for a replacement CPAP at 10cm and other supplies as needed. PLan to do an overnight oximetry on CPAP at 10cm and RA at next visit to ensure adequate oxygenation and write an order to [facility] oxygen through [facility] '. Continue CPAP with all sleep at 10cm. -CPAP download reviewed with the patient and patient is complying with and benefitting from treatment. -Avoid driving , partaking in hazardous activities, or operating heavy machinery if drowsy. -Continue appropriate cleaning of the machine/humidifier and update of all supplies including mask , tubing , and filters . -Return for follow-up in 2 months for compliance with a new machine . Return /call sooner if any problems arise in the meantime.
--- OUTSIDE RECORDS SUMMARY | 2016-10-08 15:29 | XMS REPORT | Referral Summary ---
Author Author [facility] Organization [facility] Address Unknown Phone Unavailable Care Team Providers Care Advertising Material Distributor Name Role Phone Ricco Dangelo Primary Care Physician [phone] Encounter Date(s): 04/09/15 - 04/09/15 [facility], [facility] [address], [facility] [address] [place], [place] [address] Discharge Diagnosis: CLARISSA (obstructive sleep apnea) Discharge Diagnosis: Nocturnal hypoxemia Discharge Disposition: 01-Home or Self Care Attending Physician: Emiliana Jean Admitting Physician: Emiliana Jean Referring Physician: Joshua Dangelo MD Vital Signs Most recent to 1 oldest [Reference Range]: Peripheral Pulse 76 bpm Rate [60-100 bpm] (04/09/15 1:54 PM) Blood Pressure 142/76 mmHg [90-140/60-90 mmHg] *HI* (04/09/15 1:54 PM) SpO2 94 % (04/09/15 1:54 PM) Problem List Condition Effective Dates Status [...] DAY, # 30 tabs, 1 Refill(s), eRx: [facility] #[id number], TAKE ONE TABLET BY MOUTH ONCE A DAY Start Date: 09/21/15 Status: Ordered Crestor 10 mg oral tablet See Instructions, TAKE ONE TABLET BY MOUTH AT BEDTIME, # 90 tabs, eRx: [facility] #[id number], TAKE ONE TABLET BY MOUTH AT BEDTIME Start Date: 10/02/15 Status: Ordered famotidine 20 mg oral tablet See Instructions, TAKE ONE TABLET BY MOUTH TWICE A DAY, # 60 tabs, 1 Refill(s), eRx: [facility] #[id number], TAKE ONE TABLET BY MOUTH TWICE A DAY Start Date: 10/12/15 Status: Ordered fluticasone nasal 2 sprays, Nasal, Daily, as needed for allergy symptoms, 0 Refill(s) Start Date: 12/25/13 Status: Ordered furosemide 80 mg oral tablet See Instructions, TAKE ONE-HALF TABLET BY MOUTH EVERY DAY, # 30 tabs, 3 Refill(s ), eRx: [facility] #[id number], TAKE ONE-HALF TABLET BY MOUTH EVERY DAY Start Date: 05/18/15 Status: Ordered hydrocortisone 2.5% topical cream See Instructions, APPLY VERY LIGHTLY TO FACIAL RASH TWO TIMES A DAY NEEDED, # 30 unknown unit, eRx: [facility] #[id number], APPLY VERY LIGHTLY TO FACIAL RASH TWO TIMES A DAY NEEDED Start Date: 12/19/14 Status: Ordered levothyroxine 25 mcg (0.025 mg) oral tablet See Instructions, TAKE ONE TABLET BY MOUTH DAILY, # 30 tabs, 3 Refill(s), eRx: [facility] #[id number], TAKE ONE TABLET BY MOUTH DAILY Start Date: 08/03/15 Status: Ordered Metafolbic Plus oral tablet See Instructions, TAKE ONE TABLET BY MOUTH DAILY, # 30 tabs, eRx: [facility] #[id number], TAKE ONE TABLET BY MOUTH DAILY Start Date: 10/19/15 Status: Ordered pyridoxine 100 mg oral tablet 1 tabs, Oral, Daily, 0 Refill(s) Start Date: 12/25/13 Status: Ordered spironolactone 100 mg oral tablet See Instructions, TAKE ONE TABLET BY MOUTH EVERY DAY., # 30 tabs, 9 Refill(s), eRx: [facility] #[id number], TAKE ONE TABLET BY MOUTH EVERY DAY. [...] Office Visit Note Author: Emiliana Jean Date: 04/09/15 Assessment/Plan 1.Nocturnal hypoxemia -Continue oxygen at 2LPM while trying to tolerate CPAP. -Overnight oximetry on oxygen at 2LPM tonight to ensure adequate oxygenation on this. -F/u in 4-6 weeks. CLARISSA (obstructive sleep apnea) -Still having difficulty tolerating CPAP on account of the pressure feeling too high. Will have Jessie educate her on how to use her RAMP as it is set and work with her on a nasal mask with a chinstrap. She is willing to try again with the different mask style. -She will use her oxygen when she is unable to use CPAP. -Avoid driving or partaking in hazardous activities if drowsy. -F/u in 4-6 weeks for re-evaluation of progress with CPAP. -She was encouraged to call before her appointment if she is having difficulty tolerating the CPAP.
--- OUTSIDE RECORDS SUMMARY | 2016-10-08 15:29 | XMS REPORT | Referral Summary ---
Author Author [facility] [place] Organization [facility], [facility] Address Unknown Phone Unavailable Care Team Providers Care Engraver Set Up Operator Name Role Phone Ricco Dangelo Primary Care Physician [phone] Encounter VC Date(s): 10/22/15 - 10/22/15 [facility] [place], [facility] [address], [place] [address] Discharge Disposition: 01-Home or Self [...] DAY, # 30 tabs, 1 Refill(s), eRx: [facility] #[id number], TAKE ONE TABLET BY MOUTH ONCE A DAY Start Date: 09/21/15 Status: Ordered Crestor 10 mg oral tablet See Instructions, TAKE ONE TABLET BY MOUTH AT BEDTIME, # 90 tabs, eRx: [facility] #[id number], TAKE ONE TABLET BY MOUTH AT BEDTIME Start Date: 10/02/15 Status: Ordered famotidine 20 mg oral tablet See Instructions, TAKE ONE TABLET BY MOUTH TWICE A DAY, # 60 tabs, 1 Refill(s), eRx: [facility] #[id number], TAKE ONE TABLET BY MOUTH TWICE A DAY Start Date: 10/12/15 Status: Ordered fluticasone nasal 2 sprays, Nasal, Daily, as needed for allergy symptoms, 0 Refill(s) Start Date: 12/25/13 Status: Ordered furosemide 80 mg oral tablet See Instructions, TAKE ONE-HALF TABLET BY MOUTH EVERY DAY, # 30 tabs, 3 Refill(s ), eRx: [facility] #[id number], TAKE ONE-HALF TABLET BY MOUTH EVERY DAY Start Date: 05/18/15 Status: Ordered hydrocortisone 2.5% topical cream See Instructions, APPLY VERY LIGHTLY TO FACIAL RASH TWO TIMES A DAY NEEDED, # 30 unknown unit, eRx: [facility] #[id number], APPLY VERY LIGHTLY TO FACIAL RASH TWO TIMES A DAY NEEDED Start Date: 12/19/14 Status: Ordered levothyroxine 25 mcg (0.025 mg) oral tablet See Instructions, TAKE ONE TABLET BY MOUTH DAILY, # 30 tabs, 3 Refill(s), eRx: [facility] #[id number], TAKE ONE TABLET BY MOUTH DAILY Start Date: 08/03/15 Status: Ordered Metafolbic Plus oral tablet See Instructions, TAKE ONE TABLET BY MOUTH DAILY, # 30 tabs, eRx: [facility] #[id number], TAKE ONE TABLET BY MOUTH DAILY Start Date: 10/19/15 Status: Ordered pyridoxine 100 mg oral tablet 1 tabs, Oral, Daily, 0 Refill(s) Start Date: 12/25/13 Status: Ordered spironolactone 100 mg oral tablet See Instructions, TAKE ONE TABLET BY MOUTH EVERY DAY., # 30 tabs, 9 Refill(s), eRx: [facility] #[id number], TAKE ONE TABLET BY MOUTH EVERY DAY. [...]
--- OUTSIDE RECORDS SUMMARY | 2016-10-08 15:29 | XMS REPORT | Referral Summary ---
Author Author [facility] [place], [facility] Organization [facility] [place] [facility] Address Unknown Phone Unavailable Care Team Providers Care Client Delivery Specialist Name Role Phone Ricco Dangelo Primary Care Physician [phone] Encounter VC Date(s): 01/29/15 - 01/29/15 [facility] [place], [address] [place] [address] [place] Discharge Disposition: 01-Home or Self Care Attending Physician: Joshua Dangelo MD Admitting Physician: Joshua Dangelo MD Vital Signs Most recent to 1 oldest [Reference Range]: Temperature Tympanic 35.9 degC [36.6-38.1 degC] *LOW* (01/29/15 10:25 AM) Peripheral Pulse 62 bpm Rate [60-100 bpm] (01/29/15 10:25 AM) Respiratory Rate 16 br/min [14-20 br/min] (01/29/15 10:25 AM) Blood Pressure 126/84 mmHg [90-140/60-90 mmHg] (01/29/15 10:25 AM) Problem List Condition Effective Dates Status [...] DAY, # 30 tabs, 1 Refill(s), eRx: [facility] #[id number], TAKE ONE TABLET BY MOUTH ONCE A DAY Start Date: 07/20/15 Status: Ordered Crestor 10 mg oral tablet See Instructions, TAKE ONE TABLET BY MOUTH AT BEDTIME, # 90 tabs, 2 Refill(s), eRx: [facility] #[id number], TAKE ONE TABLET BY MOUTH AT BEDTIME Start Date: 12/05/14 Status: Ordered famotidine 20 mg oral tablet See Instructions, TAKE ONE TABLET BY MOUTH TWICE A DAY, # 60 tabs, 10 Refill(s) , eRx: [facility] #[id number], TAKE ONE TABLET BY MOUTH TWICE A DAY Start Date: 11/14/14 Status: Ordered fluticasone nasal 2 sprays, Nasal, Daily, as needed for allergy symptoms, 0 Refill(s) Start Date: 12/25/13 Status: Ordered furosemide 80 mg oral tablet See Instructions, TAKE ONE-HALF TABLET BY MOUTH EVERY DAY, # 30 tabs, 3 Refill(s ), eRx: [facility] #[id number], TAKE ONE-HALF TABLET BY MOUTH EVERY DAY Start Date: 05/18/15 Status: Ordered hydrocortisone 2.5% topical cream See Instructions, APPLY VERY LIGHTLY TO FACIAL RASH TWO TIMES A DAY NEEDED, # 30 unknown unit, eRx: [facility] #[id number], APPLY VERY LIGHTLY TO FACIAL RASH TWO TIMES A DAY NEEDED Start Date: 12/19/14 Status: Ordered hydrocortisone 2.5% topical cream soniya, Topical, BID, apply very lightly to facial rash twice daily as needed, 0 Refill(s) Start Date: 12/25/13 Status: Ordered levothyroxine 25 mcg (0.025 mg) oral tablet See Instructions, TAKE ONE TABLET BY MOUTH DAILY, # 30 tabs, 3 Refill(s), eRx: [facility] #[id number], TAKE ONE TABLET BY MOUTH DAILY Start Date: 08/03/15 Status: Ordered Metafolbic Plus oral tablet See Instructions, TAKE ONE TABLET BY MOUTH DAILY, # 30 tabs, 10 Refill(s), eRx: [facility] #[id number], TAKE ONE TABLET BY MOUTH DAILY Start Date: 11/14/14 Status: Ordered pyridoxine 100 mg oral tablet 1 tabs, Oral, Daily, 0 Refill(s) Start Date: 12/25/13 Status: Ordered spironolactone 100 mg oral tablet See Instructions, TAKE ONE TABLET BY MOUTH EVERY DAY., # 30 tabs, 9 Refill(s), eRx: [facility] #[id number], TAKE ONE TABLET BY MOUTH EVERY DAY. [...] Patient Education Author: Joshua Dangelo MD Date: 01/29 Family Medicine Knee Pain The knee is the complex joint between your thigh and your lower leg. It is made up of bones, tendons, ligaments, and cartilage. The bones that make up the knee are: The femur in the thigh. The tibia and fibula in the lower leg. The patella or kneecap riding in the groove on the lower femur. CAUSES Knee pain is a common complaint with many causes. A few of these causes are: Injury, such as: A ruptured ligament or tendon injury. Torn cartilage. Medical conditions, such as: Gout Arthritis Infections Overuse, over training, or overdoing a physical activity. Knee pain can be minor or severe. Knee pain can accompany debilitating injury. Minor knee problems often respond well to self-care measures or get well on their own. More serious injuries may need medical intervention or even surgery. SYMPTOMS The knee is complex. Symptoms of knee problems can vary widely. Some of the problems are: Pain with movement and weight bearing. Swelling and tenderness. Buckling of the knee. Inability to straighten or extend your knee. Your knee locks and you cannot straighten it. Warmth and redness with pain and fever. Deformity or dislocation of the kneecap. DIAGNOSIS Determining what is wrong may be very straight forward such as when there is an injury. It can also be challenging because of the complexity of the knee. Tests to make a diagnosis may include: Your caregiver taking a history and doing a physical exam. Routine X-rays can be used to rule out other problems. X-rays will not reveal a cartilage tear. Some injuries of the knee can be diagnosed by: Arthroscopy a surgical technique by which a small video camera is inserted through tiny incisions on the sides of the knee. This procedure is used to examine and repair internal knee joint problems. Tiny instruments can be used during arthroscopy to repair the torn knee cartilage (meniscus). Arthrography is a radiology technique. A contrast liquid is directly injected into the knee joint. Internal structures of the knee joint then become visible on X-ray film. An MRI scan is a non X-ray radiology procedure in which magnetic olivarez and a computer produce two- or three-dimensional images of the inside of the knee. Cartilage tears are often visible using an MRI scanner. MRI scans have largely replaced arthrography in diagnosing cartilage tears of the knee. Blood work. Examination of the fluid that helps to lubricate the knee joint (synovial fluid). This is done by taking a sample out using a needle and a syringe. TREATMENT The treatment of knee problems depends on the cause. Some of these treatments are: Depending on the injury, proper casting, splinting, surgery, or physical therapy care will be needed. Give yourself adequate recovery time. Do not overuse your joints. If you begin to get sore during workout routines, back off. Slow down or do fewer repetitions. For repetitive activities such as cycling or running, maintain your strength and nutrition. Alternate muscle groups. For example, if you are a weight vehicle body sander, work the upper body on one day and the lower body the next. Either tight or weak muscles do not give the proper support for your knee. Tight or weak muscles do not absorb the stress placed on the knee joint. Keep the muscles surrounding the knee strong. Take care of mechanical problems. If you have flat feet, orthotics or special shoes may help. See your caregiver if you need help. Arch supports, sometimes with wedges on the inner or outer aspect of the heel, can help. These can shift pressure away from the side of the knee most bothered by osteoarthritis. A brace called an "bar turner" brace also may be used to help ease the pressure on the most arthritic side of the knee. If your caregiver has prescribed crutches, braces, wraps or ice, use as directed. The acronym for this is MADRIGAL. This means protection, rest, ice, compression, and elevation. Nonsteroidal anti-inflammatory drugs (NSAIDs), can help relieve pain. But if taken immediately after an injury, they may actually increase swelling. Take NSAIDs with food in your stomach. Stop them if you develop stomach problems. Do not take these if you have a history of ulcers, stomach pain, or bleeding from the bowel. Do not take without your caregiver's approval if you have problems with fluid retention, heart failure, or kidney problems. For ongoing knee problems, physical therapy may be helpful. Glucosamine and chondroitin are lryn-uyp-mahbcsi dietary supplements. Both may help relieve the pain of osteoarthritis in the knee. These medicines are different from the usual anti-inflammatory drugs. Glucosamine may decrease the rate of cartilage destruction. Injections of a corticosteroid drug into your knee joint may help reduce the symptoms of an arthritis flare-up. They may provide pain relief that lasts a few months. You may have to wait a few months between injections. The injections do have a small increased risk of infection, water retention, and elevated blood sugar levels. Hyaluronic acid injected into damaged joints may ease pain and provide lubrication. These injections may work by reducing inflammation. A series of shots may give relief for as long as 6 months. Topical painkillers. Applying certain ointments to your skin may help relieve the pain and stiffness of osteoarthritis. Ask your pharmacist for suggestions. Many over the-counter products are approved for temporary relief of arthritis pain. In some countries, doctors often prescribe topical NSAIDs for relief of chronic conditions such as arthritis and tendinitis. A review of treatment with NSAID creams found that they worked as well as oral medications but without the serious side effects. PREVENTION Maintain a healthy weight. Extra pounds put more strain on your joints. Get strong, stay limber. Weak muscles are a common cause of knee injuries. Stretching is important. Include flexibility exercises in your workouts. Be smart about exercise. If you have osteoarthritis, chronic knee pain or recurring injuries, you may need to change the way you exercise. This does not mean you have to stop being active. If your knees ache after jogging or playing basketball, consider switching to swimming, water aerobics, or other low-impact activities, at least for a few days a week. Sometimes limiting high-impact activities will provide relief. Make sure your shoes fit well. Choose footwear that is right for your sport. Protect your knees. Use the proper gear for knee-sensitive activities. Use kneepads when playing volleyball or laying carpet. Buckle your seat belt every time you drive. Most shattered kneecaps occur in car accidents. Rest when you are tired. SEEK MEDICAL CARE IF: You have knee pain that is continual and does not seem to be getting better. SEEK IMMEDIATE MEDICAL CARE IF: Your knee joint feels hot to the touch and you have a high fever. MAKE SURE YOU: Understand these instructions. Will watch your condition. Will get help right away if you are not doing well or get worse. Document Released: 04/15/2008 Document Revised: 09/10/2012 Document Reviewed: [facility] Patient Information 2015 [employer]. This information is not intended to replace advice given to you by your health care provider. Make sure you discuss any questions you have with your health care provider. No follow up information was provided. Extracted from: Title: Lymphedema, Osteoarthritis Author: Joshua Dangelo MD Date: of knees, CLARISSA, HTN Impression and Plan Diagnosis Adult hypothyroidism (ICD9 244.9, Working, Medical). Benign essential hypertension (ICD9 401.1, Working, Medical). Chronic kidney disease (CKD), stage III (moderate) (ICD9 585.3, Working, Medical ). High cholesterol (ICD9 272.0, Working, Medical). Lymphedema (ICD9 457.1, Working, Medical). Morbid obesity (ICD9 278.01, Working, Medical). CLARISSA (obstructive sleep apnea) (ICD9 327.23, Working, Medical). Osteoarthritis of both knees (ICD9 715.96, Working, Medical). Thrombocytopenia (ICD9 287.5, Working, Medical). Plan: Hospital bed recommended. Electric wheelchair recommended. Pulaski refilled. Continue your present meds. See me in 3 months and as needed. Continue oxygen at night. . Orders Orders (Selected) Outpatient Orders Ordered Office Visit Level 4 Est 91102: Future (On Hold) CBC w/ Differential: CBC w/ Differential: CBC w/ Differential: Prescriptions Prescribed Pulaski 7.5 mg-325 mg oral tablet: 1 tabs, Oral, BID, N. Dillons, PRN: as needed for pain, 60 tabs, 0 Refill(s). Dx/Order Association Plan: Diagnosis: Adult hypothyroidism Comment: Ordered: Office Visit Level 4 Est 89043; 01/29/15 11:09:00 CDT, Benign essential hypertension | Lymphedema | CLARISSA (obstructive sleep apnea) | Osteoarthritis of both knees | Morbid obesity Diagnosis: Benign essential hypertension Comment: Ordered: Office Visit Level 4 Est [id number]; 01/29/15 11:09:00 CDT, Benign essential hypertension | Lymphedema | CLARISSA (obstructive sleep apnea) | Osteoarthritis of both knees | Morbid obesity Diagnosis: Chronic kidney disease (CKD), stage III (moderate) Comment: Ordered: Office Visit Level 4 Est [id number]; 01/29/15 11:09:00 CDT, Benign essential hypertension | Lymphedema | CLARISSA (obstructive sleep apnea) | Osteoarthritis of both knees | Morbid obesity Diagnosis: High cholesterol Comment: Ordered: Office Visit Level 4 Est [id number]; 01/29/15 11:09:00 CDT, Benign essential hypertension | Lymphedema | CLARISSA (obstructive sleep apnea) | Osteoarthritis of both knees | Morbid obesity Diagnosis: Lymphedema Comment: Ordered: Office Visit Level 4 Est [id number]; 01/29/15 11:09:00 CDT, Benign essential hypertension | Lymphedema | CLARISSA (obstructive sleep apnea) | Osteoarthritis of both knees | Morbid obesity Diagnosis: Morbid obesity Comment: Ordered: Office Visit Level 4 Est [id number]; 01/29/15 11:09:00 CDT, Benign essential hypertension | Lymphedema | CLARISSA (obstructive sleep apnea) | Osteoarthritis of both knees | Morbid obesity Diagnosis: CLARISSA (obstructive sleep apnea) Comment: Ordered: Office Visit Level 4 Est [id number]; 01/29/15 11:09:00 CDT, Benign essential hypertension | Lymphedema | CLARISSA (obstructive sleep apnea) | Osteoarthritis of both knees | Morbid obesity Diagnosis: Osteoarthritis of both knees Comment: Ordered: Office Visit Level 4 Est [id number]; 01/29/15 11:09:00 CDT, Benign essential hypertension | Lymphedema | CLARISSA (obstructive sleep apnea) | Osteoarthritis of both knees | Morbid obesity Diagnosis: Thrombocytopenia Comment: Ordered: Office Visit Level 4 Est [id number]; 01/29/15 11:09:00 CDT, Benign essential hypertension | Lymphedema | CLARISSA (obstructive sleep apnea) | Osteoarthritis of both knees | Morbid obesity Additional Orders: Comment: Ordered: Pulaski 7.5 mg-325 mg oral tablet,1 tabs, Oral, BID, as needed for pain, NJluis Lindsey, # 60 tabs, 0 Refill(s) End of Orders .
--- OUTSIDE RECORDS SUMMARY | 2016-10-08 15:29 | XMS REPORT | Referral Summary ---
Author Author [facility], [facility] Organization [facility], [facility] Address Unknown Phone Unavailable Care Team Providers Care Curriculum Assistant Principal Name Role Phone Ricco Dangelo Primary Care Physician [phone] Encounter Date(s): 03/12/15 - 03/12/15 [facility], [facility] [address], [facility] [address] [place], [place] [address] Discharge Disposition: 01-Home or Self Care Attending Physician: Emiliana Jean Vital Signs No data [...] DAY, # 30 tabs, 1 Refill(s), eRx: [facility] #[id number], TAKE ONE TABLET BY MOUTH ONCE A DAY Start Date: 09/21/15 Status: Ordered Crestor 10 mg oral tablet See Instructions, TAKE ONE TABLET BY MOUTH AT BEDTIME, # 90 tabs, 2 Refill(s), eRx: [facility] #[id number], TAKE ONE TABLET BY MOUTH AT BEDTIME Start Date: 12/05/14 Status: Ordered famotidine 20 mg oral tablet See Instructions, TAKE ONE TABLET BY MOUTH TWICE A DAY, # 60 tabs, 10 Refill(s) , eRx: [facility] #[id number], TAKE ONE TABLET BY MOUTH TWICE A DAY Start Date: 11/14/14 Status: Ordered fluticasone nasal 2 sprays, Nasal, Daily, as needed for allergy symptoms, 0 Refill(s) Start Date: 12/25/13 Status: Ordered furosemide 80 mg oral tablet See Instructions, TAKE ONE-HALF TABLET BY MOUTH EVERY DAY, # 30 tabs, 3 Refill(s ), eRx: [facility] #[id number], TAKE ONE-HALF TABLET BY MOUTH EVERY DAY Start Date: 05/18/15 Status: Ordered hydrocortisone 2.5% topical cream See Instructions, APPLY VERY LIGHTLY TO FACIAL RASH TWO TIMES A DAY NEEDED, # 30 unknown unit, eRx: [facility] #[id number], APPLY VERY LIGHTLY TO FACIAL RASH TWO TIMES A DAY NEEDED Start Date: 12/19/14 Status: Ordered levothyroxine 25 mcg (0.025 mg) oral tablet See Instructions, TAKE ONE TABLET BY MOUTH DAILY, # 30 tabs, 3 Refill(s), eRx: [facility] #[id number], TAKE ONE TABLET BY MOUTH DAILY Start Date: 08/03/15 Status: Ordered Metafolbic Plus oral tablet See Instructions, TAKE ONE TABLET BY MOUTH DAILY, # 30 tabs, 10 Refill(s), eRx: [facility] #[id number], TAKE ONE TABLET BY MOUTH DAILY Start Date: 11/14/14 Status: Ordered pyridoxine 100 mg oral tablet 1 tabs, Oral, Daily, 0 Refill(s) Start Date: 12/25/13 Status: Ordered spironolactone 100 mg oral tablet See Instructions, TAKE ONE TABLET BY MOUTH EVERY DAY., # 30 tabs, 9 Refill(s), eRx: [facility] #[id number], TAKE ONE TABLET BY MOUTH EVERY DAY. [...]
--- OUTSIDE RECORDS SUMMARY | 2016-10-08 15:29 | XMS REPORT | Referral Summary ---
Author Author [facility] Organization [facility] Address Unknown Phone Unavailable Care Team Providers Care Correctional Agency Director Name Role Phone Ricco Dangelo Primary Care Physician [phone] Encounter Date(s): 05/14/15 - 05/14/15 [facility] [address], [facility] [address] [place], [place] [address] Discharge Diagnosis: CLARISSA (obstructive sleep apnea) Discharge Disposition: 01-Home or Self Care Attending Physician: Federico Nieves MD Admitting Physician: Federico Nieves MD Vital Signs Most recent to 1 oldest [Reference Range]: Peripheral Pulse 73 bpm Rate [60-100 bpm] (05/14/15 2:02 PM) Blood Pressure 140/82 mmHg [90-140/60-90 mmHg] (05/14/15 2:02 PM) SpO2 94 % (05/14/15 2:02 PM) Problem List Condition Effective Dates Status [...] DAY, # 30 tabs, 2 Refill(s), eRx: [facility] #[id number], TAKE ONE TABLET BY MOUTH ONCE A DAY Start Date: 04/20/15 Status: Ordered Crestor 10 mg oral tablet See Instructions, TAKE ONE TABLET BY MOUTH AT BEDTIME, # 90 tabs, 2 Refill(s), eRx: [facility] #[id number], TAKE ONE TABLET BY MOUTH AT BEDTIME Start Date: 12/05/14 Status: Ordered famotidine 20 mg oral tablet See Instructions, TAKE ONE TABLET BY MOUTH TWICE A DAY, # 60 tabs, 10 Refill(s) , eRx: [facility] #[id number], TAKE ONE TABLET BY MOUTH TWICE A DAY Start Date: 11/14/14 Status: Ordered fluticasone nasal 2 sprays, Nasal, Daily, as needed for allergy symptoms, 0 Refill(s) Start Date: 12/25/13 Status: Ordered furosemide 80 mg oral tablet See Instructions, TAKE ONE-HALF TABLET BY MOUTH EVERY DAY, # 30 tabs, 4 Refill(s ), eRx: [facility] #[id number], TAKE ONE-HALF TABLET BY MOUTH EVERY DAY Start Date: 02/17/14 Status: Ordered hydrocortisone 2.5% topical cream See Instructions, APPLY VERY LIGHTLY TO FACIAL RASH TWO TIMES A DAY NEEDED, # 30 unknown unit, eRx: [facility] #[id number], APPLY VERY LIGHTLY TO FACIAL RASH TWO TIMES A DAY NEEDED Start Date: 12/19/14 Status: Ordered hydrocortisone 2.5% topical cream soniya, Topical, BID, apply very lightly to facial rash twice daily as needed, 0 Refill(s) Start Date: 12/25/13 Status: Ordered levothyroxine 25 mcg (0.025 mg) oral tablet See Instructions, TAKE ONE TABLET BY MOUTH DAILY, # 30 tabs, 4 Refill(s), eRx: [facility] #[id number], TAKE ONE TABLET BY MOUTH DAILY Start Date: 02/23/15 Status: Ordered Metafolbic Plus oral tablet See Instructions, TAKE ONE TABLET BY MOUTH DAILY, # 30 tabs, 10 Refill(s), eRx: [facility] #[id number], TAKE ONE TABLET BY MOUTH DAILY Start Date: 11/14/14 Status: Ordered pyridoxine 100 mg oral tablet 1 tabs, Oral, Daily, 0 Refill(s) Start Date: 12/25/13 Status: Ordered spironolactone 100 mg oral tablet See Instructions, TAKE ONE TABLET BY MOUTH EVERY DAY., # 30 tabs, 9 Refill(s), eRx: [facility] #[id number], TAKE ONE TABLET BY MOUTH EVERY DAY. [...] 2002 digitalis toxicity 1990 Cholecystectomy 1974 Appendectomy 1973 [...] Extracted from: Title: Office Visit Note Author: Federico Nieves MD Date: 05/14/15 Assessment/Plan CLARISSA (obstructive sleep apnea) Assessment: The patient is complying with CPAP but has a large leak and the treatmentis not helping because of that. Plan: Switch to a nasal pillow mask. Continue at same pressure. One month return. She will see our respiratory therapist today to get a mask.
--- OUTSIDE RECORDS SUMMARY | 2016-10-08 15:29 | XMS REPORT | Referral Summary ---
Author Author [facility] Organization [facility] Address Unknown Phone Unavailable Care Team Providers Care Surveillance Officer Name Role Phone Ricco Dangelo Primary Care Physician [phone] Encounter VC Date(s): 11/12/15 - 11/12/15 [facility] [place], [address] [place] [address] [place] Discharge Disposition: 01-Home or Self Care Attending Physician: Joshua Dangelo MD Admitting Physician: Joshua Dangelo MD Vital Signs Most recent to 1 oldest [Reference Range]: Temperature Tympanic 36.8 degC [36.6-38.1 degC] (11/12/15 10:59 AM) Peripheral Pulse 76 bpm Rate [60-100 bpm] (11/12/15 10:59 AM) Blood Pressure 136/60 mmHg [90-140/60-90 mmHg] (11/12/15 10:59 AM) Problem List Condition Effective Dates Status [...] DAY, # 30 tabs, 1 Refill(s), eRx: [facility] #[id number], TAKE ONE TABLET BY MOUTH ONCE A DAY Start Date: 09/21/15 Status: Ordered Crestor 10 mg oral tablet See Instructions, TAKE ONE TABLET BY MOUTH AT BEDTIME, # 90 tabs, eRx: [facility] #[id number], TAKE ONE TABLET BY MOUTH AT BEDTIME Start Date: 10/02/15 Status: Ordered famotidine 20 mg oral tablet See Instructions, TAKE ONE TABLET BY MOUTH TWICE A DAY, # 60 tabs, 1 Refill(s), eRx: [facility] #[id number], TAKE ONE TABLET BY MOUTH TWICE A DAY Start Date: 10/12/15 Status: Ordered fluticasone nasal 2 sprays, Nasal, Daily, as needed for allergy symptoms, 0 Refill(s) Start Date: 12/25/13 Status: Ordered furosemide 80 mg oral tablet See Instructions, TAKE ONE-HALF TABLET BY MOUTH EVERY DAY, # 30 tabs, 3 Refill(s ), eRx: [facility] #[id number], TAKE ONE-HALF TABLET BY MOUTH EVERY DAY Start Date: 05/18/15 Status: Ordered hydrocortisone 2.5% topical cream See Instructions, APPLY VERY LIGHTLY TO FACIAL RASH TWO TIMES A DAY NEEDED, # 30 unknown unit, eRx: [facility] #[id number], APPLY VERY LIGHTLY TO FACIAL RASH TWO TIMES A DAY NEEDED Start Date: 12/19/14 Status: Ordered levothyroxine 25 mcg (0.025 mg) oral tablet See Instructions, TAKE ONE TABLET BY MOUTH DAILY, # 30 tabs, 3 Refill(s), eRx: [facility] #[id number], TAKE ONE TABLET BY MOUTH DAILY Start Date: 08/03/15 Status: Ordered Metafolbic Plus oral tablet See Instructions, TAKE ONE TABLET BY MOUTH DAILY, # 30 tabs, 1 Refill(s), eRx: [facility] #[id number], TAKE ONE TABLET BY MOUTH DAILY Start Date: 11/09/15 Status: Ordered pyridoxine 100 mg oral tablet 1 tabs, Oral, Daily, 0 Refill(s) Start Date: 12/25/13 Status: Ordered spironolactone 100 mg oral tablet See Instructions, TAKE ONE TABLET BY MOUTH EVERY DAY., # 30 tabs, 9 Refill(s), eRx: [facility] #[id number], TAKE ONE TABLET BY MOUTH EVERY DAY. [...] section 1965 section 1964 Dilation and curettage 5 Tubal ligation 1November--OS--did 4 different procedures 2OD [...] Patient Education Author: Joshua Dangelo MD Date: 11/11 Allergy Edema Edema is an abnormal buildup [...] with your health care provider. Document Released: 06/19/2006 Document Revised: 11/03/2014 Document Reviewed: [facility] [place] Patient Information 2015 [employer]. No follow up information was provided. Extracted from: Title: CLARISSA, Lymphedema, HTN Author: Joshua Dangelo MD Date: 11/12/15 Impression and Plan Diagnosis CLARISSA (obstructive sleep apnea) (YTV03-PE G47.33, Working, Medical). Benign essential hypertension (BOS03-VB I10, Working, Medical). Primary hypercholesterolemia (UIM99-ON E78.0, Working, Medical). Lymphedema of leg (JHX51-HB I89.0, Working, Medical). Morbid obesity (OZZ57-AC E66.01, Working, Medical). Chronic gout (ORJ35-HR M10.00, Working, Medical). Headaches - tension (FPT81-UV R51, Working, Medical). Plan: 1) Continue your current meds and treatments (CPAP). 2) Healthy diet and daily exercise helps most things. 3) See me in 3 months for a physical, and as needed.. Orders Orders (Selected) Outpatient Orders Ordered Office Visit Level 4 Est 53608: . Dx/Order Association Plan: Diagnosis: Benign essential hypertension Comment: Ordered: Office Visit Level 4 Est 88085; 11/12/15 11:16:00 CDT, CLARISSA (obstructive sleep apnea) | Benign essential hypertension | Lymphedema of leg | Primary hypercholesterolemia | Headaches - tension Diagnosis: Chronic gout Comment: Diagnosis: Headaches - tension Comment: Ordered: Office Visit Level 4 Est 22131; 11/12/15 11:16:00 CDT, CLARISSA (obstructive sleep apnea) | Benign essential hypertension | Lymphedema of leg | Primary hypercholesterolemia | Headaches - tension Diagnosis: Lymphedema of leg Comment: Ordered: Office Visit Level 4 Est 02100; 11/12/15 11:16:00 CDT, CLARISSA (obstructive sleep apnea) | Benign essential hypertension | Lymphedema of leg | Primary hypercholesterolemia | Headaches - tension Diagnosis: Morbid obesity Comment: Diagnosis: CLARISSA (obstructive sleep apnea) Comment: Ordered: Office Visit Level 4 Est 69644; 11/12/15 11:16:00 CDT, CLARISSA (obstructive sleep apnea) | Benign essential hypertension | Lymphedema of leg | Primary hypercholesterolemia | Headaches - tension Diagnosis: Primary hypercholesterolemia Comment: Ordered: Office Visit Level 4 Est 59800; 11/12/15 11:16:00 CDT, CLARISSA (obstructive sleep apnea) | Benign essential hypertension | Lymphedema of leg | Primary hypercholesterolemia | Headaches - tension End of Orders ."
--- OUTSIDE RECORDS SUMMARY | 2016-10-08 15:29 | XMS REPORT | Referral Summary ---
Author Author [facility] Organization [facility] Address Unknown Phone Unavailable Care Team Providers Care Certified Art Therapist Name Role Phone Ricco Dangelo Primary Care Physician [phone] Encounter VC Date(s): 03/22/16 - 03/22/16 [facility] [address] [place] [address] Discharge Diagnosis: Polyp of cecum Discharge Disposition: 01-Home or Self Care Attending Physician: Kris Dallas MD Admitting Physician: Kris Dallas MD Vital Signs Most recent to 1 oldest [Reference Range]: Respiratory Rate 22 br/min [14-20 br/min] *HI* (03/22/16 11:13 AM) Problem List Condition Effective Dates Status [...] Primary Active hypercholesterolemia (Confirmed) Rosacea(Confirmed) Active Villoglandular 2008 Active colonic polyp(Confirmed) Villoglandular 2009 [...] DAY, # 30 tabs, 10 Refill(s), eRx: [facility] #[id number], TAKE ONE TABLET BY MOUTH ONCE A DAY Start Date: 03/08/16 Status: Ordered Crestor 10 mg oral tablet See Instructions, TAKE ONE TABLET BY MOUTH AT BEDTIME, # 90 tabs, eRx: [facility] #[id number], TAKE ONE TABLET BY MOUTH AT BEDTIME Start Date: 01/01/16 Status: Ordered famotidine 20 mg oral tablet See Instructions, TAKE ONE TABLET BY MOUTH TWICE A DAY, # 60 tabs, 10 Refill(s) , eRx: [facility] #[id number], TAKE ONE TABLET BY MOUTH TWICE A DAY Start Date: 03/08/16 Status: Ordered fluticasone nasal 2 sprays, Nasal, Daily, as needed for allergy symptoms, 0 Refill(s) Start Date: 12/25/13 Status: Ordered hydrocortisone 2.5% topical cream See Instructions, APPLY VERY LIGHTLY TO FACIAL RASH TWO TIMES A DAY NEEDED, # 30 unknown unit, 1 Refill(s), eRx: [facility] #[id number], APPLY VERY LIGHTLY TO FACIAL RASH TWO TIMES A DAY NEEDED Start Date: 01/21/16 Status: Ordered l-methylfolate 7.5 mg oral tablet 7.5 mg 1 tabs, Oral, Daily, # 30 tabs, 10 Refill(s), Pharmacy: [facility] #[id number], Cancel Metafolbic Plus Caplet, 1 tabs Oral Daily Start Date: 03/08/16 Status: Ordered levothyroxine 25 mcg (0.025 mg) oral tablet See Instructions, TAKE ONE TABLET BY MOUTH DAILY, # 30 tabs, 6 Refill(s), eRx: [facility] #[id number], TAKE ONE TABLET BY MOUTH DAILY Start Date: 12/09/15 Status: Ordered pyridoxine 100 mg oral tablet 1 tabs, Oral, Daily, 0 Refill(s) Start Date: 12/25/13 Status: Ordered spironolactone 100 mg oral tablet See Instructions, TAKE ONE TABLET BY MOUTH EVERY DAY., # 30 tabs, 10 Refill(s), eRx: [facility] #[id number], TAKE ONE TABLET BY MOUTH EVERY DAY. Start Date: 03/08/16 Status: Ordered traMADol 50 mg oral tablet 50 mg 1 tabs, Oral, q6hr, as needed for pain, [place], # 60 tabs, 1 Refill(s) Start Date: 03/18/16 Status: Ordered Vitamin B-12 1000 mcg oral tablet 2,000 mcg 2 tabs, Oral, Daily, # 60 tabs, 10 Refill(s), Pharmacy: [facility] #[id number], Cancel Metafolbic Plus Caplet, 2 tabs Oral [...] Extracted from: Title: Ambulatory Patient Education Author: Pily To RN Date: Family Medicine Colon Polyps Polyps are lumps [...] Released: 03/15/2005 Document Revised: 07/10/2015 Document Reviewed: [facility] Patient Information 2016 [employer] [facility]. Preventive Medicine Colonoscopy A colonoscopy is an exam to look at the entire large intestine (colon). This exam can help find problems such as tumors, polyps, inflammation, and areas of bleeding. The exam takes about 1 hour. LET YOUR HEALTH CARE PROVIDER KNOW ABOUT: Any allergies you have. All medicines you are taking, including vitamins, herbs, eye drops, creams, and kisv-ors-fesijrn medicines. Previous problems you or members of your family have had with the use of anesthetics. Any blood disorders you have. Previous surgeries you have had. Medical conditions you have. RISKS AND COMPLICATIONS Generally, this is a safe procedure. However, as with any procedure, complications can occur. Possible complications include: Bleeding. Tearing or rupture of the colon wall. Reaction to medicines given during the exam. Infection (rare). BEFORE THE PROCEDURE Ask your health care provider about changing or stopping your regular medicines. You may be prescribed an oral bowel prep. This involves drinking a large amount of medicated liquid, starting the day before your procedure. The liquid will cause you to have multiple loose stools until your stool is almost clear or light green. This cleans out your colon in preparation for the procedure. Do not eat or drink anything else once you have started the bowel prep, unless your health care provider tells you it is safe to do so. Arrange for someone to drive you home after the procedure. PROCEDURE You will be given medicine to help you relax (sedative). You will lie on your side with your knees bent. A long, flexible tube with a light and camera on the end (colonoscope) will be inserted through the rectum and into the colon. The camera sends video back to a computer screen as it moves through the colon. The colonoscope also releases carbon dioxide gas to inflate the colon. This helps your health care provider see the area better. During the exam, your health care provider may take a small tissue sample (biopsy) to be examined under a microscope if any abnormalities are found. The exam is finished when the entire colon has been viewed. AFTER THE PROCEDURE Do not drive for 24 hours after the exam. You may have a small amount of blood in your stool. You may pass moderate amounts of gas and have mild abdominal cramping or bloating. This is caused by the gas used to inflate your colon during the exam. Ask when your test results will be ready and how you will get your results. Make sure you get your test results. This information is not intended to replace advice given to you by your health care provider. Make sure you discuss any questions you have with your health care provider. Document Released: 06/16/2001 Document Revised: 04/09/2014 Document Reviewed: [employer] Patient Information 2016 [employer]. No follow up information was provided. Extracted from: Title: Surgery Office Visit Note Author: Cheikh Joiner MD Date: 03/22/16 Assessment/Plan The patient is a 76-year-old female who presents for follow-up colonoscopy results and pathology report. 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 It was explained that her unresected adenoma in her cecum is a precancerous lesion that will likely progress to cancer in a couple to several years in the future. After an extensive discussion with the patient and her family, the patient understands that she is high risk for a major abdominal surgery such as a right hemicolectomy for this cecal adenoma. She reports that she " would rather not have surgery " . She reports she " is already 76 years old and may not be alive in 7 years " . If the patient were to change her mind and want surgery we would require cardiac clearance by cardiology, and want to have the patient follow-up in clinic for a subsequent visit discussing the surgery and the risks. I have physically seen and examined the patient. I have discussed the patient with the Resident/BE[employer] SECOND [employer]/PA/RN/PharmD, reviewed the chart, and concur with the assessment and plan as above.
--- OUTSIDE RECORDS SUMMARY | 2016-10-08 15:43 | XMS REPORT | Continuity of Care Document ---
Author Author [facility] Organization [facility] Address Unknown Phone Unavailable Care Team Providers Care Lock Up Worker Name Role Phone HUEY GOLDSTEIN MD Primary Care Physician [phone] Insurance Providers Payer Name Policy Number Subscriber Name Relationship Medicare [id number] Reta Vivas [employer] [facility] Plan [id number] Reta Vivas 18 Self Advance Directives Directive Response [...] F (96.8 - 99.1) Temperature (Calculated Celsius) 36.41170 degrees C (36.0 - 37.3) Temperature Source [...] 12, 2010 2:24pm LAB TEST FORM REQUEST [id number] - Arterial Blood pO2 at Patient Temp February 06, 2008 3:03pm 67 [facility] L 80- 100 Procedures Procedure Status Date Provider(s) Cataract surgery completed 01/15/14 TEENA GARLAND MD
--- NOTE | 2016-10-08 15:52 | NUR ---
PROVIDER DR. RAHMAN AT BEDSIDE FOR PELVIC EXAM ACCOMP BY THIS RN.
--- NOTE | 2016-10-08 16:10 | NUR ---
IVL ORDERS REC'D TO HOLD ON IVL PER DR. RAHMAN AFTER TWO UNSUCCESSFUL IV ATTEMPTS BY THIS RN.
[2016-10-08] MEDS ORDERED: ACET-3088 PO (16:12)
[2016-10-08] MEDS ORDERED: LEVO25TA9 PO (16:13)
[2016-10-08 16:26] LABS: BLOOD, URINE 2+ (NEGATIVE); COLOR,URINE YELLOW (YELLOW); LEUKOCYTE ESTERASE ,URINE TRACE (NEGATIVE); NITRITE,URINE POSITIVE (NEGATIVE); UROBILINOGEN,URINE 0.2 EU/DL (NORMAL)
[2016-10-08 16:27] LABS: BASOPHILS % (AUTO) 0.1 % (0-2); HCT - HEMATOCRIT 31.4 % (36-46); HGB - HEMOGLOBIN 10.2 GM/DL (12-16); IMMATURE GRANULOCYTE # (AUTO) 0.07 T/MM3 (0.00-0.03); IMMATURE GRANULOCYTE % (AUTO) 0.8 % (0.0-0.5); LYMPHOCYTES # (AUTO) 1.6 T/MM3 (1-4.8); LYMPHOCYTES % (AUTO) 19.1 % (23-45); MEAN CORPUSCULAR HGB 31.8 UUG (26-34); MEAN CORPUSCULAR HGB CONC(MCHC 32.5 GM/DL (31-37); MEAN CORPUSCULAR VOLUME 97.8 UM3 (80-100); MEAN PLATELET VOLUME 12.4 UM3 (9.4-12.4); MONOCYTES # (AUTO) 1.5 T/MM3 (0-0.8); MONOCYTES % (AUTO) 17.9 % (0-9.0); NEUTROPHILS #(AUTO)-ABSOLUTE 5.3 T/MM3 (1.8-7.7); NEUTROPHILS % (AUTO) 62.1 % (33-66); RED BLOOD COUNT 3.21 M/MM3 (4.00-5.20); WBC - WHITE BLOOD COUNT 8.5 T/MM3 (4.5-11.0)
[2016-10-08 16:33] LABS: INR 1.04 (0.76-1.04); PROTHROMBIN TIME 11.3 SEC (9.31-12.49); PTT 17.8 SEC (24-36)
[2016-10-08 16:34] LABS: BACTERIA,URINE 2+ (NEGATIVE)
[2016-10-08 16:37] LABS: ALBUMIN 4.2 G/DL (3.5-5.0); ALKALINE PHOSPHATASE 106 U/L (38-126); ALT (SGPT) 56 U/L (9-52); ANION GAP 18 MEQ/L (5-15); AST (SGOT) 62 U/L (14-36); BUN/CREATININE RATIO 23 RATIO (6-26); CALCIUM 9.1 MG/DL (8.4-10.2); CHLORIDE 105 MEQ/L (98-107); CO2 - CARBON DIOXIDE 22 MEQ/L (22-30); CREATININE 1.2 MG/DL (0.7-1.2); GLOMERULAR FILTRATION RATE 44; GLUCOSE 113 MG/DL (65-110); LIPASE 163 U/L (23-300); POTASSIUM 4.6 MEQ/L (3.6-5); SODIUM 145 MEQ/L (134-144); TOTAL PROTEIN 8.4 G/DL (6.3-8.2)
--- NOTE | 2016-10-08 16:42 | NUR ---
SONO AT BEDSIDE.
[2016-10-08] MEDS ORDERED: CEPH-583 PO (17:42)
--- NOTE | 2016-10-08 17:42 | ERPDOC ---
Departure Disposition Decision Date: Oct 08, 2016 Disposition Decision Time: 17:38 Disposition: 01 DISCHARGED HOME, SELF-CARE Impression Impression Impression: Primary Impression: Vaginal bleeding Severity: Mild Condition: Improved Seen By: Physician only Referrals: HUEY GOLDSTEIN MD (Family) RICHI LEIGH MD 2 Days Patient Instructions: Bleeding Disorders (ED) Problems/Meds/Labs Reviewed?: Yes Medications reviewed and manag: Yes Follow up care ordered?: Yes Mental Status: Alert, Oriented Scripts Cephalexin (Keflex) 500 Mg Capsule 1 CAP PO TID for 10 Days, #30 CAP 0 Refills Prov: KEN RAHMAN DO 10/08/16 HPI - General Medical General Chief Complaint: Female Urogenital Problems Stated Complaint: VAGINAL BLEEDING Time Seen by Provider: 15:27 HPI - General Medical Initial Comments 76-year-old female presents to the emergency department with a chief complaint of vaginal bleeding which began at approximately 2 PM. Patient noted a small amount of vaginal bleeding while sitting at rest at home. Patient denies any true pain or discomfort. She notes some mild pelvic cramping without radiation. She does not note any exacerbating or remitting factors. She was at home when her symptoms began. Symptoms have been persistent in nature since onset. Patient describes the amount of bleeding as a very light period from when she was younger. There are no other complaints or associated symptoms. She is asymptomatic with the bleeding currently. Occurred At: home Onset: Gradual Allergies: Coded Allergies: sulfamethoxazole (Verified Allergy, Severe, RASH, 10/08/16) mupirocin (Unverified Allergy, Unknown, 10/08/16) trimethoprim (Unverified Allergy, Unknown, 10/08/16) Past History Past Medical History Metabolic: hypertension Female: renal insufficiency Surgical History Reproductive/: Family History Family History: Negative Vaccines Hx Influenza Vaccination: Yes ("A LONG TIME AGO, I GET SICK FOR MONTHS AND MONTHS SO I QUIT TAKING THEM") Hx Pneumococcal Vaccination: Yes (CAN'T REMEMBER WHEN) Social History Smoking Status: Never smoker Substance Use Type: does not use Alcohol Intake: none Review of Systems Constitutional Constitutional: DENIES: chills, fever Eyes General: DENIES: erythema, exudate Lids/Accessories: DENIES: erythema, swelling Vision: DENIES: acuity, blurring ENMT Ears: DENIES: drainage, erythema Hearing: DENIES: hearing loss Balance: DENIES: ataxia, falling to one side Sinuses: DENIES: congestion, pain Nose: DENIES: nosebleeds, pain Mouth/Throat: DENIES: painful swallowing, sore throat Teeth: DENIES: pain Jaw: DENIES: pain Cardiovascular Cardiac: DENIES: chest pain, dyspnea on exertion Rhythm/Rate: DENIES: irregular beat, palpitations Vascular: DENIES: pedal edema, unilateral swelling Pulmonary Respiratory: DENIES: cough, dyspnea, pleuritic chest pain, sputum GI Upper Abdomen: DENIES: nausea, pain, vomiting Lower Abdomen: DENIES: diarrhea, pain General: DENIES: dysuria, frequency Musculoskeletal General: DENIES: joint pain, tenderness Integumentary Skin: DENIES: itching, rash Neurological General: DENIES: headache, numbness, weakness Psychiatric Psychiatric: DENIES: emotional instability, suicidal ideation/attempt Endocrine Endocrine: DENIES: polydipsia, polyphagia Hematologic/Lymphatic Hematologic/Lymphatic: DENIES: frequent nosebleeds, lymphadenopathy Allergic/Immunological Allergic/Immunoligical: DENIES: allergic reactions, hives Physical Exam General General Nourishment: well nourished, well developed, appears stated age, no acute distress, adult General Body Habitus: well groomed Vitals and Pain First Documented Vital Signs Date Time Temp Pulse Resp B/P Pulse Ox O2 Delivery O2 Flow Rate FiO2 10/08/16 15:21 97.8 87 14 180/70 94 Room Air Weight: Kilograms: 136.000 Height (feet): 4 Height (inches): 11.00 Triage Pain Scale: RN VS reviewed by Provider: Yes Normal Exams: Head: Normocephalic w/o trauma Eyes: Pupils are PERRLA w/ EOMI, No scleral icterus, irritation, or foreign bodies noted ENMT: No facial trauma, nasal exudates, pharyngeal erythema, or exudates are noted Dental: No fractured, loose, or missing teeth noted Neck: Full range of motion, without adenopathy, JVD, bruits or thyromegaly Chest/Resp: Clear all olivarez, with good airflow, and symmetry bilaterally CV: Regular rate and rhythm, without murmur or gallop, Pulses 2+ all extremities, capillary refill, <2 seconds all ext., no pedal edema noted Abdomen: Bowel sounds positive, soft, non-tender, non-distended, no hepatosplenomegaly, masses or bruits noted Lymphatic: No lymphadenopathy, or lymphedema noted Musculoskeletal: No tenderness, or deformity noted, good range of motion, all extremities Integumentary: No rashes, hives, or bruising noted, hair and nails, without abnormality Neurologic: Patient is alert, and oriented, cranial nerves, motor/sensory/ cerebellar, exams w/o gross deficits, to observation Psychiatric: Patient exhibits, appropriate attention, emotion and affect (brief) Comments Pelvic Exam - normal external exam. Cervical os is closed. No CMT. No adnexal tenderness or masses. Normal uterus. Positive scant amount of vaginal bleeding noted. No discharge. Differential Diagnoses Considering: Metabolic, Other (vaginal bleeding/rectal bleeding/hematuria/ ) Progress Results/Orders Orders Procedure Category Date Status Time Orthostatic Bp/Pulse EDM 10/08/16 Transmitted 15:23 Cbc W/Auto LAB 10/08/16 Complete Diff-Reflex Manual Cmp - Comprehensive LAB 10/08/16 Complete Metabolic Lipase LAB 10/08/16 Complete INR LAB 10/08/16 Complete PTT LAB 10/08/16 Complete Us Transvaginal US 10/08/16 Logged (Non-Ob) 15:41 UA, LAB 10/08/16 Complete Dip&Micro(Complete) & 16:06 Urine Culture DEAN 10/08/16 In Process 16:36 Cephalexin Capsule PHA 10/08/16 Complete (Keflex) 17:45 Lab Results Laboratory Tests Test 10/08/16 16:06 10/08/16 16:20 Urine Collection Type Cleancatch-midstream Urine Color Yellow Urine Turbidity Clear Urine pH 5.5 Urine Specific [place] 1.015 Urine Protein Trace Urine Glucose (UA) Negative Urine Ketones Negative Urine Blood 2+ Urine Nitrite Positive Urine Bilirubin Negative Urine Urobilinogen 0.2EU/DL Urine Leukocyte Esterase Trace Urine RBC 1-3/HPF Urine WBC 10-20/HPF Urine Bacteria 2+ Urine Culture Indicated Cult reflexed &setup White Blood Count 8.5T/MM3 Red Blood Count 3.21M/MM3 Hemoglobin 10.2GM/DL Hematocrit 31.4% Mean Corpuscular Volume 97.8UM3 Mean Corpuscular Hemoglobin 31.8UUG Mean Corpuscular Hemoglobin Concent 32.5GM/DL RDW Standard Deviation 55.4FL Platelet Count 86T/MM3 Mean Platelet Volume 12.4UM3 Immature Granulocyte % (Auto) 0.8% Neutrophils (%) (Auto) 62.1% Lymphocytes (%) (Auto) 19.1% Monocytes (%) (Auto) 17.9% Eosinophils (%) (Auto) 0.0% Basophils (%) (Auto) 0.1% Absolute Immature Granulocyte (auto 0.07T/MM3 Absolute Neutrophils (auto) 5.3T/MM3 Absolute Lymphocytes (auto) 1.6T/MM3 Absolute Monocytes (auto) 1.5T/MM3 Absolute Eosinophils (auto) 0.0T/MM3 Absolute Basophils (auto) 0.0T/MM3 Prothromb Time International Ratio 1.04 Activated Partial Thromboplast Time 17.8SEC Turbidity < 20 Sodium Level 145MEQ/L Potassium Level 4.6MEQ/L Chloride Level 105MEQ/L Carbon Dioxide Level 22MEQ/L Anion Gap 18MEQ/L Blood Urea Nitrogen 28.0MG/DL Creatinine 1.2MG/DL Glomerular Filtration Rate Calc 44 BUN/Creatinine Ratio 23RATIO Glucose Level 113MG/DL Calculated Osmolality 286MOSM/KG Calcium Level 9.1MG/DL Total Bilirubin 0.90MG/DL Icterus Index < 2 Aspartate Amino Transf (AST/SGOT) 62U/L Alanine Aminotransferase (ALT/SGPT) 56U/L Alkaline Phosphatase 106U/L Total Protein 8.4G/DL Albumin 4.2G/DL Globulin 4.2G/DL Albumin/Globulin Ratio 1.0RATIO Lipase 163U/L Chemistry Specimen Hemolysis 167 Medications Current ED Medications Cephalexin HCl (Keflex) 500 mg O ONCE PO ; Start 10/08/16 at 17:45; Stop at 17:46; Status DC Progress Progress Labs / imaging were discussed in detail with the patient and questions are answered. Patient's vital signs are normal. Patient is asymptomatic with regard to the vaginal bleeding. Patient's labs are unremarkable. Patient is discharged home in improved condition. She is to follow up as instructed. Strict return precautions are provided to the patient who verbalizes agreement and understanding. Patient is discussed with Dr. Leigh who will provide close follow-up for the patient on Monday morning. Patient verbalizes agreement and understanding. Patient is discharged home in improved condition Patient is to follow up as instructed. Patient declines IV insertion and states that she will orally hydrate at home. Patient is to return to the emergency Department if her condition worsens or changes in any manner. Prescription for Keflex is provided due to the bacteria in the patient's urine. Patient is in agreement with the current plan of management. Ultrasound US : Ultrasound: Pelvis US Interpretation: Abnormal, Faxed Report (thickened uterine endometrium.) KEN RAHMAN DO Oct 08, 2016 17:42
[2016-10-08] MEDS ORDERED: CEPHALEXIN 500 MG CAPSULE PO ONE (17:45)
[2016-10-08 18:12] VITALS: BP 173/73; PULSE 70; RESP 16; TEMP 97.8; O2SAT 93
--- NOTE | 2016-10-08 18:12 | NUR ---
DEPART PT GIVEN DI FOR BLEEDING DISORDERS, KEFLEX, F/U. RX PROVIDED FOR KEFLEX. VERBALIZES UNDERSTANDING OF DI. QUESTIONS ASKED/ANSWERED - DENIES FURTHER QUESTIONS/NEEDS AT THIS TIME. PERSONAL BELONGINGS GATHERED. PT DRESSED INDEPENDENTLY - MINIMAL ASSIST FROM SPOUSE. PT ESCORTED TO ED EXIT - NO SIGN OF DISTRESS AT THIS TIME.
--- NOTE | 2016-10-09 09:04 | DI ---
Indication: ITS.REASON: vaginal bleeding PROCEDURE: US TRANSVAGINAL (NON-OB): Encounter: Initial Comparison: None FINDINGS: Transvaginal and transabdominal pelvic imaging was performed. The uterus measures 13.8 x 5 cm. The parenchyma is homogeneous without fibroids. The endometrial stripe is grossly abnormal measuring up to 17 mm in diameter with some internal vascularity and heterogeneity. Nabothian cysts. Ovaries were not visualized. IMPRESSION: Abnormal endometrium raising strong suspicion for endometrial carcinoma. Biopsy is recommended. There is a preliminary report by [facility]. .
== END 2016-10-08 18:12 | disposition home or self-care (01) ==
LOC: ED 15:18
DX: N93.9 Abnormal uterine and vaginal bleeding, unspecified (principal); Z79.899 Other long term (current) drug therapy
CPT/HCPCS: 51701; 76830; 80053; 81001; 83690; 85025; 85610; 85730; 87086; 87088; 99284; A9270; 87186

== ENCOUNTER 2016-10-11 14:31 | Observation (INO) | payer MEDICARE, MEDICAID ==
[~2016-10-11] VITALS: Ht 149.9 cm; Wt 134.3 kg
[2016-10-11 10:55] VITALS: Ht 149.9 cm; Wt 134.3 kg
--- NOTE | 2016-10-11 10:55 | NUR ---
Arrival Patient arrived on unit at this time via wheelchair, direct admit from Dr. Rosales's office. Patient moved self from wheelchair to bed with assistance. Oriented to unit. Will continue to monitor.
[2016-10-11 12:34] LABS: BASOPHILS % (AUTO) 0.1 % (0-2); HCT - HEMATOCRIT 25.9 % (36-46); HGB - HEMOGLOBIN 8.3 GM/DL (12-16); IMMATURE GRANULOCYTE # (AUTO) 0.13 T/MM3 (0.00-0.03); IMMATURE GRANULOCYTE % (AUTO) 1.9 % (0.0-0.5); LYMPHOCYTES # (AUTO) 1.4 T/MM3 (1-4.8); LYMPHOCYTES % (AUTO) 20.7 % (23-45); MEAN CORPUSCULAR HGB 31.4 UUG (26-34); MEAN CORPUSCULAR VOLUME 98.1 UM3 (80-100); MEAN PLATELET VOLUME 11.4 UM3 (9.4-12.4); MONOCYTES # (AUTO) 1.2 T/MM3 (0-0.8); MONOCYTES % (AUTO) 17.8 % (0-9.0); NEUTROPHILS #(AUTO)-ABSOLUTE 4.1 T/MM3 (1.8-7.7); NEUTROPHILS % (AUTO) 59.5 % (33-66); RED BLOOD COUNT 2.64 M/MM3 (4.00-5.20); WBC - WHITE BLOOD COUNT 6.9 T/MM3 (4.5-11.0)
[2016-10-11] MEDS: FERROUS SULFATE 324 MG TABLET PO SCH ×2 (13:12→17:42)
[2016-10-11] MEDS: NORETHINDRONE 5 MG TABLET PO SCH ×3 (14:00→21:47)
[2016-10-11 14:14] LABS: ALBUMIN 3.8 G/DL (3.5-5.0); ALBUMIN/GLOBULIN RATIO 1.2 RATIO (1.1-2.2); ALKALINE PHOSPHATASE 104 U/L (38-126); ALT (SGPT) 51 U/L (9-52); ANION GAP 14 MEQ/L (5-15); AST (SGOT) 26 U/L (14-36); BUN/CREATININE RATIO 19 RATIO (6-26); CALCIUM 9.2 MG/DL (8.4-10.2); CHLORIDE 104 MEQ/L (98-107); CO2 - CARBON DIOXIDE 27 MEQ/L (22-30); CREATININE 1.4 MG/DL (0.7-1.2); GLOMERULAR FILTRATION RATE 36; GLUCOSE 113 MG/DL (65-110); POTASSIUM 4.3 MEQ/L (3.6-5); SODIUM 145 MEQ/L (134-144); TOTAL PROTEIN 7.1 G/DL (6.3-8.2)
[~2016-10-11 14:31] MED LIST changes: +ACET-3088 PO; +B6 PO; +CEPH-583 PO; +CYAN100085 PO; +FLUT9.9S NAS; -HYDR-1343 PO; +HYDR59LO5 TOP; -HYDROCORTISONE 2.5% TOP; +LEVO25TA9 PO; +LEVO7.5T7 PO; +PYRI100T6 PO; +[UNRECOGNIZED DRUG - CODE] PO; -[UNRECOGNIZED DRUG - CODE] PO; -[UNRECOGNIZED DRUG - OTHER] PO
[2016-10-11] MEDS ORDERED: NORMAL SALINE 500 ML IV SCH (14:44)
--- NOTE | 2016-10-11 15:23 | CONSPD ---
TRI CAGLE V TACTICAL DECEPTION PLANS OFFICER 10/11/16 1453: Consultation Info Date DATE: 10/11/16 TIME: 14:38 Date of Consultation: Oct 11, 2016 Attending Physician: Maryana Reason for Consultation: Anemia, HTN HPI - Adult Date DATE: 10/11/16 TIME: 14:38 General Chief Complaint: Vaginal Bleeding, Anemia History of Present Illness Ana is a pleasant 76 yr old female who started having acute vaginal bleeding on monday10/08/16. She was seen in the Emergency room for acute evaluation. Hgb at that time was 10.2, hematocrit 31.4, RBCs 3.21, white blood cell count 8.5, platelets 86. Sodium is 145, potassium 4.6, BUN 20, creatinine 1.2, glucose 113, Later osmolality 286. LFTs were within AST of 62, ALT of 56. Lipase at that time was 163. INR 1.04. Urinalysis was obtained showing trace protein, 2+ blood, positive nitrates, trace leukocyte esterase, 10-20 WBCs with 2+ bacteria. Transvaginal ultrasound was obtained showing abnormal endometrium rate and is patient for carcinoma. Patient was started on Keflex and discharged to follow-up with gynecology. She was seen yesterday 10/[address] Rosales. She had a biopsy performed at the clinic. She returned today for a second biopsy, and vaginal bleeding was noted to be increased than yesterday. She was admitted directly to [facility] under the care of Dr. Rosales. Given her complex comorbidities as well as continued anemia. The hospitalist services were contacted for medical consultation for further evaluation and treatment. Admission laboratory studies are reviewed, the WBC count 6.9, RBCs 2.64, hemoglobin 8.3, hematocrit 25.9, platelet count 59. Sodium is elevated at 145, potassium 4.3, BUN 27, creatinine 1.7, glucose 113, calculated osmolality 285. LFTs have normalized. On exam, patient is without pain. She states that bleeding was heavier this morning, however, has since lightened. Denies any recent illnesses or injuries. We did discuss advanced directives and patient does verbalize her wishes for do not resuscitate. Past Medical History Past Medical History Cardiomegaly Hypothyroidism Anemia Chronic thrombocytopenia Hypertension Gout Chronic kidney disease congestive heart failure Obesity hypercholesterolemia Chronic lymphedema of lower extremities Obesity hypoventilation syndrome Obstructive sleep apnea OA Headaches Surgical History Patient's Surgical History: Colonoscopy-03/2016, 2012, 2010, 2009, 2008 D&C-2001, 1954 Cholecystectomy-1974 Appendectomy-1973 2 (1964, 1963) Echocardiogram- 08/2016 EF 55%. Mild mitral and tricuspid regurgitation. No significant changes from previous echo in 2007 Cataract extraction-2013 Current Medications Home Meds Active Scripts Cephalexin (Keflex) 500 Mg Capsule, 1 CAP PO TID for 10 Days, #30 CAP 0 Refills Prov:KEN RAHMAN DO 10/08/16 Reported Medications Acetyl/Methyl-B12/Lmefolate Ca (Metafolbic Plus Caplet) 1 Each Tablet, 1 TAB PO DAILY 10/11/16 [b-6] No Conflict Check, 1 DOSE PO DAILY 10/11/16 Fluticasone Propionate (Flonase Allergy Relief 50 mcg/actuation Nasal) 9.9 Ml [place].susp, 1 SPRAY CONNIE DAILY 10/11/16 Hydrocortisone (Hydrocortisone) 59 Applic/59 Ml Lotion, 1 APPLIC TOP BID, #60 ML 10/11/16 Pyridoxine HCl (Pyridoxine HCl) 100 Mg Tablet, 100 MG PO DAILY, TAB 10/11/16 Levothyroxine Sodium (Levothyroxine Sodium) 25 Mcg Tablet, 25 MCG PO HS 10/08/16 Acetaminophen (Tylenol Arthritis) 650 Mg Tablet.er, 1 TAB PO PRN Y for PAIN 10/08/16 Ca Cmb No.1/Vit D3/B-6/Fa/B12 (Vitamin D3 1,000 Unit Tablet) 1 Each Tablet, 1000 UNIT PO DAILY 01/14/14 Multivitamins (Multivitamin) 1 Tab Tablet, 1 TAB PO DAILY, TAB 01/14/14 Tramadol Hcl (Tramadol Hcl) 50 Mg Tablet, 50 MG PO PRN, TAB 01/14/14 Spironolactone (Spironolactone) 100 Mg Tablet, 100 MG PO DAILY, TAB 01/14/14 Furosemide (Furosemide) 80 Mg Tablet, 40 MG PO DAILY, TAB 01/14/14 Famotidine (Famotidine) 20 Mg Tablet, 20 MG PO BID, TAB 01/14/14 Rosuvastatin (Crestor) 10 Mg Tablet, 10 MG PO HS 01/14/14 Allopurinol (Allopurinol) 300 Mg Tablet, 300 MG PO DAILY, TAB 01/14/14 Allergies: Coded Allergies: sulfamethoxazole (Verified Allergy, Severe, RASH, 10/08/16) mupirocin (Verified Allergy, Unknown, 10/11/16) trimethoprim (Verified Allergy, Unknown, 10/11/16) Family History Family History: Father with coronary artery disease, from [place] Mother with coronary artery disease, from [place] Siblings with pancreatic cancer, coronary artery disease Social History Smoking Status: Former smoker (quit in 1990) Substance Use Type: does not use Alcohol Intake: none Advance Directives: Yes DNR Social History Comments Primary care provider-Dr. Joshua Dangelo Slate Worker -Dr. Kristopher Negron Applique Cutter Dr. Abarca Review of Systems Female: see HPI (Vaginal bleeding) All Other Systems All Other Systems: Reviewed (remainder of 10-point ROS Neg.) Physical Exam General General Nourishment: well nourished, well developed Height (Feet): 4 Height (Inches): 11.00 Eyes Brief: FOUND: EOMI, PERRL Respiratory Brief: FOUND: clear all olivarez, equal bilaterally Cardiovascular (brief) Cardiac Brief: FOUND: pedal edema, regular rate, regular rhythm Abdomen (brief) Abdominal Brief: FOUND: BS normo active x4 Integumentary (brief) Integumentary Brief: FOUND: dry, pink, warm Neurologic (brief) Neurological Brief: FOUND: cranial 2-12 intact Neurologic RN Documented GCS Eye Opening: Verbal: Motor: Total: Psychiatric (brief) FOUND: alert, attentive, normal affect, oriented Impression/Recommendation Problems: (1) Vaginal bleeding Status: Acute (2) Anemia Status: Acute Assessment & Plan: Acute versus chronic (3) Thrombocytopenia Status: Acute Assessment & Plan: Acute versus chronic. It is reported. Patient has chronic thrombocytopenia. Platelets on admission 59. (4) Hypertension Status: Chronic (5) Cardiomegaly Status: Chronic (6) Lymphedema Status: Chronic Assessment & Plan: Bilateral lower ext (7) Chronic kidney disease Status: Chronic Qualifiers: Chronic kidney disease stage: stage 3 (moderate) Qualified Codes: N18.3 - Chronic kidney disease, stage 3 (moderate) (8) Hypothyroidism Status: Chronic (9) Hypercholesterolemia Status: Chronic (10) Obesity hypoventilation syndrome Status: Chronic (11) Obstructive sleep apnea Status: Chronic Recommendation Continued gynecologic care and treatment as per Dr. Rosales Given anemia and thrombocytopenia, will type/screen patient, crossmatch, and give 1 unit of packed red blood cell now. Will continue to monitor thrombocytopenia. In reviewing old records, it does appear that this is chronic. Would not transfuse platelets unless level decreases to 40 with active bleeding. Give Aygestin 5 mg PO every 4 hours undtil bleeding has resolved. For further workup of anemia. We will also obtain serum iron, ferritin, vitamin B12 levels Will initiate oral iron supplementation twice a day. In light of acute urinary tract infection. Will continue patient on Keflex. Did review culture results from 10/08/16. Culture indicates positive for Escherichia coli which is sensitive to cephalosporins. SCDs to bilateral lower extremity for DVT prophylaxis Plan to recheck CBC and BMP tomorrow morning to follow blood count, renal function, electrolytes Once home medications are reconciled. Will order accordingly. Again, patient is a do not resuscitate and this orders written. Appreciate medical consultation. We will continue to follow patient during her stay at the [facility]. At time of discharge medical care will return to her primary care provider. CHASTITY Jackson MD 10/11/16 1601: Past Medical History Current Medications Home Meds Active Scripts Cephalexin (Keflex) 500 Mg Capsule, 1 CAP PO TID for 10 Days, #30 CAP 0 Refills Prov:KEN RAHMAN DO 10/08/16 Reported Medications Acetyl/Methyl-B12/Lmefolate Ca (Metafolbic Plus Caplet) 1 Each Tablet, 1 TAB PO DAILY 10/11/16 [b-6] No Conflict Check, 1 DOSE PO DAILY 10/11/16 Fluticasone Propionate (Flonase Allergy Relief 50 mcg/actuation Nasal) 9.9 Ml [place].susp, 1 SPRAY CONNIE DAILY 10/11/16 Hydrocortisone (Hydrocortisone) 59 Applic/59 Ml Lotion, 1 APPLIC TOP BID, #60 ML 10/11/16 Pyridoxine HCl (Pyridoxine HCl) 100 Mg Tablet, 100 MG PO DAILY, TAB 10/11/16 Levothyroxine Sodium (Levothyroxine Sodium) 25 Mcg Tablet, 25 MCG PO HS 10/08/16 Acetaminophen (Tylenol Arthritis) 650 Mg Tablet.er, 1 TAB PO PRN Y for PAIN 10/08/16 Ca Cmb No.1/Vit D3/B-6/Fa/B12 (Vitamin D3 1,000 Unit Tablet) 1 Each Tablet, 1000 UNIT PO DAILY 01/14/14 Multivitamins (Multivitamin) 1 Tab Tablet, 1 TAB PO DAILY, TAB 01/14/14 Tramadol Hcl (Tramadol Hcl) 50 Mg Tablet, 50 MG PO PRN, TAB 01/14/14 Spironolactone (Spironolactone) 100 Mg Tablet, 100 MG PO DAILY, TAB 01/14/14 Furosemide (Furosemide) 80 Mg Tablet, 40 MG PO DAILY, TAB 01/14/14 Famotidine (Famotidine) 20 Mg Tablet, 20 MG PO BID, TAB 01/14/14 Rosuvastatin (Crestor) 10 Mg Tablet, 10 MG PO HS 01/14/14 Allopurinol (Allopurinol) 300 Mg Tablet, 300 MG PO DAILY, TAB 01/14/14 Allergies: Coded Allergies: sulfamethoxazole (Verified Allergy, Severe, RASH, 10/08/16) mupirocin (Verified Allergy, Unknown, 10/11/16) trimethoprim (Verified Allergy, Unknown, 10/11/16) Impression/Recommendation Problems: (1) Vaginal bleeding Status: Acute (2) Blood loss anemia Status: Acute (3) E. coli UTI (urinary tract infection) Status: Acute Assessment & Plan: Dx in ED 10/08 - no resistance. (4) Anemia Status: Acute Assessment & Plan: Acute versus chronic (5) Thrombocytopenia Status: Acute Assessment & Plan: Acute versus chronic. It is reported. Patient has chronic thrombocytopenia. Platelets on admission 59. (6) Hypertension Status: Chronic (7) Cardiomegaly Status: Chronic (8) Lymphedema Status: Chronic Assessment & Plan: Bilateral lower ext (9) Chronic kidney disease Status: Chronic Qualifiers: Chronic kidney disease stage: stage 3 (moderate) Qualified Codes: N18.3 - Chronic kidney disease, stage 3 (moderate) (10) Hypothyroidism Status: Chronic (11) Hypercholesterolemia Status: Chronic (12) Obesity hypoventilation syndrome Status: Chronic (13) Obstructive sleep apnea Status: Chronic (14) Morbid obesity Status: Chronic Qualifiers: Obesity type: due to excess calories Qualified Codes: E66.01 - Morbid ( severe) obesity due to excess calories Recommendation Have independently interviewed and examined pt. Chart reviewed. Case discussed with Dr Rosales and my TACTICAL DECEPTION PLANS OFFICER. Above care plan developed with my supervision; agree with above. Developed crampy, lower ab pain on 10/08. [place] something moist in her undergarments. Though passed urine, but was blood. See in ED. Was found to have UTI (Ecoli grew out) and started on cephalexin. Vaginal US showed abnormal endometrium. HGB at baseline at that time. Discharged to f/u with Dr Rosales for CREDIT ANALYSIS MANAGER eval. Continued to pass blood. Did have Bx Yesterday. Returned today, increasing bleeding and passing clots. Notes continued cramping discomfort at times. Stools stable and regular - no blood in stool or tarry dark sticky stool. No nausea or emesis. Breathing stable without increase cough or congestion. No pain with breathing. Slight increased SOA when active. No chest pressure or pain. Notes some increase fatigue. No f/c. Lungs: decreased CV: regular AB: soft nt/nd +BS MSE: awake alert appropriate Plan: With significant decrease of hemoglobin and pt's continued vaginal bleeding, will give 1 unit pRBC - check CBC 1 hour post transfusion. Check Iron , Ferritin, and Vit B12. Ferrous sulfate and Vit C BID with meal. Progesterone initiated by ortho to help stop bleeding. SCD for DVT prevention. Continue Cephalexin for urinary coverage. Monitor lab. TRI CAGLE APRN Oct 11, 2016 14:53 CHASTITY OWEN MD Oct 11, 2016 16:01
--- NOTE | 2016-10-11 15:57 | NUR ---
Blood transfusion Blood transfusion started at this time. Vital signs stable. Will continue to monitor.
[2016-10-11 16:00] VITALS: BP 145/64; PULSE 68; RESP 16; TEMP 98.4; O2SAT 93
--- NOTE | 2016-10-11 16:08 | HPPDOC ---
History and Physical Date 10/11/16 GYNECOLOGY H&P Patient is a 76 year old postmenopausal female who presented to clinic after being referred from [facility] for postmenopausal bleeding. She was initially seen there on 10/08/16 after she started having light vaginal bleeding, though no active bleeding on exam. At that time, H/H was 10.2/31.4, platelets 86, creatinine 1.2, INR 1.04. A pelvic US was performed and showed a 13.8 x 5 cm enlarged uterus with endometrial thickening to 17 mm, neither ovaries were visualized. She was discharged home with SMASHER HAND follow up. Yesterday, patient reported her bleeding got a bit heavier, like a period, used up to 3 pads per day. She had menopause in her 50's, was previously on some medications to help her periods be regular. Her last pelvic exam was [address] Dangelo and her pap smear was normal. She does report multiple medical problems including chronic thrombocytopenia (not on meds, unclear etiology), CKD , HTN, HLD, CAD, CHF, arthritis. She also states that she is not a surgical candidate as she was not cleared for an elective procedure earlier last year. An endometrial biopsy was performed yesterday but returned with blood only.Patient was brought back to clinic today for re-sampling of the endometrium which was accomplished earlier this morning. However, she was noted to be heavily bleeding on exam. Due to her multiple medical issues, decision was made to admit patient for observation and possible blood transfusion. PMHx: --per above. SurgHx: --appendectomy (1983) --cataract surgery (2014) --cholecystectomy (1984) --C/S x2 Allergies: --sulfa --mupirocin Medications: --see EMR Social Hx: --former smoker - has quit since 1990. --denies EtOH and illicit drug use. --. Family Hx: --CAD in multiple family members. 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 --menopause at age 51. --no postmenopausal bleeding until this acute episode. VS pending - in clinic, elevated BP 170/83, no tachycardia, afebrile. NAD (refer to clinic H&P for exam) Pad is mildly soaked but no blood clots, no active bleeding at this time. Labs: Hgb 10.3 (3 days ago) --> 8.3 (today) Platelets 86 (baseline) --> 59 (today) T&S pending ASSESSMENT: 76 year old postmenopausal female with multiple co-morbidities who presents with acute postmenopausal bleeding causing iron-deficiency anemia, also complicated by acute on chronic thrombocytopenia. PLAN: Start pad counts. Will start Aygestin 5 mg po q4h until bleeding stops (max of 48 hours) then decrease to TID. Consult Medicine for help with management of thrombocytopenia and other co- morbidities. Awaiting Pathology results for further SMASHER HAND management. Questions solicited and answered to patient's satisfaction. IRCHI LEIGH MD Oct 11, 2016 14:48
[2016-10-11] MEDS: CEPHALEXIN 500 MG PO SCH ×2 (16:09→21:47)
--- NOTE | 2016-10-11 16:12 | NUR ---
Blood transfusion 15 mins Blood transfusion first 15 minutes completed. No s/s of transfusion reaction. Vital signs stable. Rate increased to 100 ml/hr. Will continue to monitor.
[2016-10-11] MEDS: ASCORBIC ACID 500 MG TABLET PO SCH (17:42)
--- NOTE | 2016-10-11 18:57 | NUR ---
Shift Summary Patient alert and oriented x3. VSS. On RA. Patient c/o minor abdominal cramping, denied need for medication. IV left forearm, blood currently finishing infusing. Patient up with one and cane, had adequate urine output this shift, no BM. Abd pad that patient arrived with from Dr. Howard's office changed once. Was not saturated with blood, just had moderate amount. Family present at bedside today.
[2016-10-11 22:47] LABS: HGB - HEMOGLOBIN 8.6 GM/DL (12-16)
[2016-10-12 00:22] VITALS: BP 138/66; PULSE 74; RESP 16; TEMP 97.6; O2SAT 95
[2016-10-12] MEDS: NORETHINDRONE 5 MG TABLET PO SCH ×3 (02:12→10:22)
[2016-10-12 03:03] LABS: IRON 54 UG/DL (37-170)
[2016-10-12 03:41] LABS: FERRITIN 203 NG/ML (11-264)
[2016-10-12 03:54] LABS: VITAMIN B12 - BATCH > 1000 PG/ML (239-931)
[2016-10-12 05:25] LABS: ANION GAP 11 MEQ/L (5-15); BUN/CREATININE RATIO 19 RATIO (6-26); CALCIUM 8.9 MG/DL (8.4-10.2); CHLORIDE 104 MEQ/L (98-107); CO2 - CARBON DIOXIDE 27 MEQ/L (22-30); CREATININE 1.4 MG/DL (0.7-1.2); GLOMERULAR FILTRATION RATE 36; GLUCOSE 100 MG/DL (65-110); SODIUM 142 MEQ/L (134-144)
[2016-10-12 06:43] LABS: HCT - HEMATOCRIT 25.5 % (36-46); HGB - HEMOGLOBIN 8.2 GM/DL (12-16); MEAN CORPUSCULAR HGB 30.9 UUG (26-34); MEAN CORPUSCULAR HGB CONC(MCHC 32.2 GM/DL (31-37); MEAN CORPUSCULAR VOLUME 96.2 UM3 (80-100); MEAN PLATELET VOLUME 12.7 UM3 (9.4-12.4); RED BLOOD COUNT 2.65 M/MM3 (4.00-5.20); WBC - WHITE BLOOD COUNT 7.8 T/MM3 (4.5-11.0)
[2016-10-12 06:56] LABS: ANISOCYTOSIS 1+; BAND NEUTROPHILS # 0.2 T/MM3; EOSINOPHILS # (MANUAL) 0.1 T/MM3 (0-0.5); LYMPHOCYTES # (MANUAL) 1.9 T/MM3 (1-4.8); MONOCYTES # (MANUAL) 0.9 T/MM3 (0-0.8); NEUTROPHILS #(MANUAL)-ABSOLUTE 4.8 T/MM3 (1.8-7.7); POIKILOCYTOSIS 1+; TOTAL CELLS COUNTED 100 %
[2016-10-12 07:38] VITALS: BP 129/66; PULSE 69; RESP 17; TEMP 98.7; O2SAT 94
[2016-10-12 07:40] VITALS: PULSE 69; RESP 17
[2016-10-12] MEDS: FERROUS SULFATE 324 MG TABLET PO SCH (07:53)
[2016-10-12] MEDS: ASCORBIC ACID 500 MG TABLET PO SCH (07:53)
[2016-10-12] MEDS: CEPHALEXIN 500 MG PO SCH (07:54)
--- NOTE | 2016-10-12 09:00 | NUR ---
STATUS PT REPORTED MINIMAL DRAINAGE IN HER PAD. NO CHANGE REQUIRE AT THIS TIME. VS STABLE CHARTED. PT DENIED PAIN AT THIS TIME.
--- NOTE | 2016-10-12 10:05 | NUR ---
[place] THIS WORKER MET WITH PT ON THIS DATE. PT WAS SITTING IN CHAIR WITH FRIEND, ABI AT BEDSIDE. THIS WORKER INTRODUCED SELF AND ROLE OF CASE MANAGEMENT. THIS WORKER REVIEWED DISCHARGE PLANNING AND NEEDS. PT DENIES ANY NEEDS AT HOME. PT REPORTED THAT HER TWO DAUGHTERS TAKE CARE OF HER AT HOME IF SHE NEEDED. THIS WORKER PROVIDED PT WITH CONTACT INFORMATION AND ENCOURAGED TO CONTACT THIS WORKER WITH ANY NEEDS.
--- NOTE | 2016-10-12 10:30 | NUR ---
. NAA LEIGH ENTERED TO SEE PT. DISCUSSED PLAN OF CARE WITH PT AND DISCUSSED POSSIBLE DISMISSAL PLAN.
--- NOTE | 2016-10-12 10:37 | PNPDOC ---
Progress Note Date 10/12/16 PACKAGE SEALER Patient is feeling much better this AM, especially after receiving the blood transfusion. She has stopped bleeding completely - the last time she noticed any blood was yesterday afternoon. She would like to go home if possible. Tolerating Aygestin without any issues. AFVSS. NAD Pad dry. Item Value Date Time Hemoglobin 8.3 GM/DL L # 10/11/16 1224 Hemoglobin 8.6 GM/DL L 10/11/16 2210 Hemoglobin 8.2 GM/DL L 10/12/16 0430 Platelet Count 59 T/MM3 L 10/11/16 1224 Platelet Count 54 T/MM3 L 10/12/16 0430 Plan: Stable for discharge home. Case discussed with Dr. Mijares who agrees - greatly appreciate his assistance. Needs close follow up in 2 days in clinic. Continue Aygestin 5 mg po q4h today and then decrease to TID tomorrow. Continue FeS04 BID with VitC. Awaiting final pathology. Questions solicited and answered. RICHI LEIGH MD Oct 12, 2016 10:30
[2016-10-12] MEDS ORDERED: ASCO500T9 PO (10:43)
[2016-10-12] MEDS ORDERED: DOCU-168 PO (10:43)
[2016-10-12] MEDS ORDERED: NORE5TAB PO (10:43)
[2016-10-12] MEDS ORDERED: FERR324T4 PO (10:43)
--- NOTE | 2016-10-12 11:05 | PNPDOC ---
Subjective Date DATE: 10/12/16 TIME: 10:59 Subjective F/U: Blood loss anemia Doing well this morning. Vaginal bleeding has stopped. No pelvic discomfort or pain. Stools moving. No nausea or ab pain. Breathing well. Not feeling unsteady when up. Feels ready to go home. Objective Vital Signs Vital signs Vital Signs Date Time Temp Pulse Resp B/P Pulse Ox O2 Delivery O2 Flow Rate FiO2 10/12/16 07:40 69 17 10/12/16 07:38 98.7 129/66 94 Room Air Height (Feet): 4 Height (Inches): 11.00 Weight (Kilograms): 134.300 General General Appearance: Alert, Obese, Orientated x 3, Well Nourished, Well Developed, Cooperative, No Acute Distress, Moderate Distress Eyes (Brief) Eyes: FOUND: EOMI, PERRL, NOT FOUND: scleral icterus ENMT (Brief) ENMT: FOUND: hearing intact, mucosa moist Neck (Brief) Neck: FOUND: midline, NOT FOUND: nuchal rigidity, spasm Respiratory (Brief) Respiratory: FOUND: clear all olivarez, equal bilaterally, NOT FOUND: rales, wheezes Cardiovascular (Brief) Cardiac: FOUND: regular rate, regular rhythm Abdomen (Brief) Abdominal: FOUND: BS normo active x4, soft, NOT FOUND: distended, tender Musculoskeletal (Brief) Musculoskeletal: FOUND: extremities move equally, NOT FOUND: deformity, spasm Integumentary (Brief) Integumentary: FOUND: dry, warm Neurologic (Brief) Neurological: FOUND: cranial 2-12 intact, motor (Intact ) Psychiatric (Brief) Psychiatric: FOUND: alert, attentive, normal affect, oriented Laboratory Laboratory Laboratory Tests 10/11/16 12:24 10/12/16 04:33 Laboratory Tests 10/11/16 12:24 10/11/16 22:10 10/12/16 04:30 Assessment & Plan Problems: (1) Vaginal bleeding Status: Resolved (2) Blood loss anemia Status: Acute Assessment & Plan: Improved post transfusion of 1 unit (3) E. coli UTI (urinary tract infection) Status: Acute Assessment & Plan: Dx in ED 10/08 - no resistance. (4) Anemia Status: Acute Assessment & Plan: Acute versus chronic (5) Thrombocytopenia Status: Acute Assessment & Plan: Acute versus chronic. It is reported. Patient has chronic thrombocytopenia. Platelets on admission 59. (6) Hypertension Status: Chronic (7) Cardiomegaly Status: Chronic (8) Lymphedema Status: Chronic Assessment & Plan: Bilateral lower ext (9) Chronic kidney disease Status: Chronic Qualifiers: Chronic kidney disease stage: stage 3 (moderate) Qualified Codes: N18.3 - Chronic kidney disease, stage 3 (moderate) (10) Hypothyroidism Status: Chronic (11) Hypercholesterolemia Status: Chronic (12) Obesity hypoventilation syndrome Status: Chronic (13) Obstructive sleep apnea Status: Chronic (14) Morbid obesity Status: Chronic Qualifiers: Obesity type: due to excess calories Qualified Codes: E66.01 - Morbid ( severe) obesity due to excess calories Plan/Intensity of Service Case discussed with Dr Saenz. Can continue Iron and vit C BID - advised pt to watch for constipation. Encourage increasing activities to help functional status. Continue chronic home medication. Will f/u with Dr Dangelo and Dr Rosales. Medically stable for discharge. DVT Prophylaxis: SCD'S Code Status Do Not Resuscitate Hospital Course Summary Disclaimer The hospital course summary below is not to be considered part of the above Progress Note. CHASTITY OWEN MD Oct 12, 2016 11:04
--- NOTE | 2016-10-12 11:40 | NUR ---
DISMISSAL DISCHARGE INSTRUCTIONS GIVEN TO PT SUCH FOLLOW APPOINTMENT, NEW MEDICATIONS AND CONTINUE TAKING MEDICATIONS. ALSO, PT WAS EDUCATED IN SYMPTOMS TO REPORT TO PCP. PT VERBALIZED UNDERSTANDING IN ALL OF THE ABOVE. PT GOES PER WHEEL CHAIR TO PRIVATE VEHICLE. PRESCRIPTION SENT WITH PT.
== END 2016-10-12 13:56 | disposition home or self-care (01) ==
LOC: SRG 14:31 → MED 14:35
PROVIDERS: ADMIT Obstetrics & Gynecology; ATTEND Obstetrics & Gynecology
DX: N95.0 Postmenopausal bleeding (principal); E66.2 Morbid (severe) obesity with alveolar hypoventilation; Z68.43 Body mass index [BMI] 50.0-59.9, adult; N39.0 Urinary tract infection, site not specified; B96.20 Unspecified Escherichia coli [E. coli] as the cause of diseases classified elsewhere; D62 Acute posthemorrhagic anemia; D69.6 Thrombocytopenia, unspecified; N85.2 Hypertrophy of uterus; I12.9 Hypertensive chronic kidney disease with stage 1 through stage 4 chronic kidney disease, or unspecified chronic kidney disease; N18.3 Chronic kidney disease, stage 3 (moderate); I50.9 Heart failure, unspecified; E78.00 Pure hypercholesterolemia, unspecified; I51.9 Heart disease, unspecified; Z66 Do not resuscitate; E03.9 Hypothyroidism, unspecified; D64.9 Anemia, unspecified; M10.9 Gout, unspecified; I89.0 Lymphedema, not elsewhere classified; Z79.899 Other long term (current) drug therapy; Z87.891 Personal history of nicotine dependence
CPT/HCPCS: 36415; 36430; 80048; 80053; 82607; 82728; 83540; 85018; 85025; 86304; 86850; 86900; 86901; 86922; A9270; G0378; G0379; P9016; 99218

== ENCOUNTER 2016-10-31 18:10 | Emergency (ER) | payer MEDICARE, MEDICAID ==
[~2016-10-31] VITALS: Ht 148.6 cm; Wt 140.2 kg
[~2016-10-31 18:10] MED LIST changes: +ASCO500T9 PO; -CYAN100085 PO; +DOCU-168 PO; +FERR324T4 PO; -LEVO7.5T7 PO; +NORE5TAB PO; -PYRI100T6 PO
--- OUTSIDE RECORDS SUMMARY | 2016-10-31 18:14 | XMS REPORT | Continuity of Care Document ---
Author Author [facility] Organization [facility] Address Unknown Phone Unavailable Support Name Relationship Address Phone RICHI LEIGH MD Caregiver Unknown Unavailable RICHI LEIGH MD Caregiver Unknown Unavailable HUEY GOLDSTEIN MD Caregiver [address] [place] [address] [place] [address] Unavailable ABI PARNELL Next Of Kin [address] [place], [place] [id number] Insurance Providers Guarantor Reta Vivas Address [address] [place] [place] [address] Email DENIED 16 Payer [facility] Plan Policy Number [id number] Subscriber's Name Reta Vivas Relationship 18 Self Effective Date 16 Expiration Date 16 Payer Medicare Policy Number [id number] Subscriber's Name Reta Vivas Relationship 18 Self Effective Date 04 Advance Directives Directive Response Recorded Date/Time Dr Meneses Resuscitation Status Do Not Resuscitate 10/11/16 3:22pm Resuscitation Documents on File Yes 10/11/16 4:04pm DPOA for Healthcare Only Y Ale, Omar, kelsey, Abi Parnell, friend 05/19 4:04pm Living Will Yes 10/11/16 4:04pm Problems Active Problems Medical Problem Onset Date Status Anemia Unknown Acute Blood loss anemia Unknown Acute Cardiomegaly Unknown Chronic Chronic kidney disease Unknown Chronic E. coli UTI (urinary tract infection) Unknown Acute Hypercholesterolemia Unknown Chronic Hypertension Unknown Chronic Hypothyroidism Unknown Chronic Lymphedema Unknown Chronic Morbid obesity Unknown Chronic Obesity hypoventilation syndrome Unknown Chronic Obstructive sleep apnea Unknown Chronic Thrombocytopenia Unknown Acute Vaginal bleeding Unknown Resolved Past Problems Medical Problem Onset Date Vaginal bleeding Unknown Medications Current Home Medications Medication Dose Units Route Directions Days Qty Instructions Start Date Acetaminophen (Tylenol Arthritis) 650 Mg Tablet.er 1 Tab Oral As Needed as needed for Pain 10/08/16 Acetyl/Methyl-B12/Lmefolate Ca (Metafolbic Plus Caplet) 1 Each Tablet 1 Tab Oral Daily 10/11/16 Allopurinol 300 Mg Tablet 300 Mg Oral Daily 01/14/14 Ascorbic Acid (Vitamin C) 500 Mg Tablet 500 Mg Oral Twice Daily With Meals 30 Days 60 Tablet 10/12/16 B-6 1 Dose Oral Daily 10/11/16 Ca Cmb No.1/Vit D3/B-6/Fa/B12 (Vitamin D3 1,000 Unit Tablet) 1 Each Tablet 1, 000 Unit Oral Daily 01/14/14 Cephalexin (Keflex) 500 Mg Capsule 1 Cap Oral Three Times A Day 10 Days 30 Capsule 10/08/16 Docusate Sodium (Colace) 100 Mg Capsule 1 Cap Oral Twice A Day for Stool Softening 60 Capsule 10/12/16 Famotidine 20 Mg Tablet 20 Mg Oral Twice A Day 01/14/14 Ferrous Sulfate 324 Mg Tablet.dr 324 Mg Oral Twice Daily With Meals 30 Days 60 Tablet 10/12/16 Fluticasone Propionate (Flonase Allergy Relief 50 Mcg/Actuation Nasal) 9.9 Ml [place].susp 1 [place] Intranasal Daily 10/11/16 Furosemide 80 Mg Tablet 40 Mg Oral Daily 01/14/14 Hydrocortisone 59 Applic/59 Ml Lotion 1 Applic Topically Twice A Day 60 Milliliter 10/11/16 Levothyroxine Sodium 25 Mcg Tablet 25 Mcg Oral Bedtime 10/08/16 Multivitamins (Multivitamin) 1 Tab Tablet 1 Tab Oral Daily Norethindrone (Norethindrone Acetate) 5 Mg Tablet 5 Mg Oral Every 4 Hours 10 Days 60 Tablet Take 1 tab every 4 hours for the next 24 hours then decrease to three times daily. 10/12/16 Rosuvastatin Calcium (Crestor) 10 Mg Tablet 10 Mg Oral Bedtime Spironolactone 100 Mg Tablet 100 Mg Oral Daily 01/14/14 Tramadol Hcl 50 Mg Tablet 50 Mg Oral As Needed 01/14/14 Social History Social History Problem Response Recorded Date/Time Onset Date Status Reason for Hospitalization vaginal bleeding 10/12/2016 10:57am Not Applicable Not Applicable Hx Substance Use No 10/08/2016 4:39pm Not Applicable Not Applicable Hx Alcohol Use No 10/08/2016 4:39pm Not Applicable Not Applicable Has the pt used tobacco in the last 12 months No 10/11/2016 4:26pm Not Applicable Not Applicable Query Response Start Date Stop Date Smoking Status Former smoker Hospital Discharge Instructions Instructions: Care Instructions: I was in the hospital because (patient own words): vaginal bleeding, heavy bleeding, passing blood clots Discharge Diet: General diet Discharge Activity: Pelvic rest Follow Up Appointments: Follow up with Dr. Leigh in 2 days. [phone] APPOINTMENT ON 10/14 AT 9:30. Pending Lab / Results: Will review at f/u apt Expected Signs/Symptoms: Light vaginal spotting Notify Physician If: you have increased vaginal bleeding, shortness of breath, dizziness. During Business Hours:: Please call the physician's office at [phone]. After Business Hours:: Please call [phone] and have the telegraph operator page the physician. Pain Management/Treatment: None required. Wound/Incision Care: None required. Condition at time of discharge: Fair Plan of Care Discharge Date 10/12/16 1:56pm Disposition 01 DISCHARGED HOME, SELF-CARE Instructions/Education Provided Postmenopausal Bleeding (GEN) Prescriptions See Medication Section Care Plan and Goals See Discharge Instructions Section Functional Status Query Response Date Recorded Mobility Status Ambulatory w/assist October 11, 2016 3:06pm Assistive Devices Cane October 11, 2016 3:06pm Feeding Ability Independent October 11, 2016 3:06pm Toileting Ability Independent October 11, 2016 3:06pm Grooming Ability Independent October 11, 2016 3:06pm Dressing Ability Assist October 11, 2016 3:06pm Driving Ability Dependent October 11, 2016 3:06pm Housework Ability Dependent October 11, 2016 3:06pm Meal Preparation Ability Dependent October 11, 2016 3:06pm Stair Climbing Ability Dependent October 11, 2016 3:06pm Ability to complete ADL's impeded by No change October 11, 2016 4:04pm Cognitive/Perceptual Impairments Impaired vision October 11, 2016 3:06pm Visual Assistive Devices Glasses With patient October 11, 2016 3:06pm Allergies, Adverse Reactions, Alerts Allergen Type Severity Reaction Status Last Updated Mupirocin Allergy Unknown Active 10/11/16 Sulfamethoxazole Allergy Severe RASH Active 10/11/16 Trimethoprim Allergy Unknown Active 10/11/16 Immunizations Query Response on File Recorded Date/Time Hx Influenza Vaccination N doesn't take them 10/11/16 4:26pm Hx Pneumococcal Vaccination Y CAN'T REMEMBER WHEN 10/11/16 4:26pm Hx Influenza Vaccination N doesn't take them 10/11/16 4:26pm Vital Signs Acute Vital Signs Vital Response Date/Time Temperature (Fahrenheit) 98.7 deg F (96.8 - 99.1) 10/12/2016 7:38am Temperature (Calculated Celsius) 37.09372 degrees C (36.0 - 37.3) 10/12/2016 7:38am Pulse Rate (adult) 69 bpm (60 - 100) 10/12/2016 7:40am Respiratory Rate 17 breaths/min (10 - 20) 10/12/2016 7:40am O2 Sat by Pulse Oximetry 94 % (90 - 100) 10/12/2016 7:38am Oxygen Delivery Method Room Air 10/12/2016 7:38am Blood Pressure 129/66 mm Hg 10/12/2016 7:38am Blood Pressure Source Automatic Cuff 10/12/2016 7:38am Height (Feet) 4 feet 10/12/2016 11:05am Height (Inches) 11.00 inches 10/12/2016 11:05am Weight (Kilograms) 134.300 kg 10/11/2016 11:00am Body Mass Index (BMI) 60.6 10/11/2016 10:59am Results Laboratory Results Test Name Result Units Flags Reference Collection Date/Time Result Date/ Time Comments Prothromb Time International Ratio 1.04 0.76-1.04 10/08/2016 4:20pm 10/08/2016 4:33pm THERAPUTIC RANGE=2.00-3.00 FOR ANTI-THROMBOSIS THERAPUTIC RANGE=2.50-3.50 FOR IMPLANTED VALVE Activated Partial Thromboplast Time 17.8 SEC L 24-36 10/08/2016 4:20pm 10/08/2016 4:33pm Lipase 163 U/L 23-300 10/08/2016 4:20pm 10/08/2016 4:37pm Urine Collection Type CLEANCATCH-MIDSTREAM 10/08/2016 4:06pm 2016 4:26pm Urine Color YELLOW YELLOW 10/08/2016 4:06pm 10/08/2016 4:26pm Urine Turbidity CLEAR CLEAR 10/08/2016 4:06pm 10/08/2016 4:26pm Urine Specific [place] 1.015 1.015-1.025 10/08/2016 4:06pm 2016 4:26pm Urine pH 5.5 5.0-8.0 10/08/2016 4:06pm 10/08/2016 4:26pm Urine Leukocyte Esterase TRACE A NEGATIVE 10/08/2016 4:06pm 2016 4:26pm Urine Nitrite POSITIVE A NEGATIVE 10/08/2016 4:06pm 10/08/2016 4:26pm Urine Protein TRACE A NEGATIVE 10/08/2016 4:06pm 10/08/2016 4:26pm Urine Glucose (UA) NEGATIVE NEGATIVE 10/08/2016 4:06pm 10/08/2016 4: 26pm Urine Ketones NEGATIVE NEGATIVE 10/08/2016 4:06pm 10/08/2016 4:26pm Urine Urobilinogen 0.2 EU/DL NORMAL 10/08/2016 4:06pm 10/08/2016 4: 26pm Urine Bilirubin NEGATIVE NEGATIVE 10/08/2016 4:06pm 10/08/2016 4: 26pm Urine Blood 2+ A NEGATIVE 10/08/2016 4:06pm 10/08/2016 4:26pm Urine WBC 10-20 /HPF H 0-5 10/08/2016 4:06pm 10/08/2016 4:35pm Urine RBC 1-3 /HPF 0-3 10/08/2016 4:06pm 10/08/2016 4:35pm Urine Bacteria 2+ H NEGATIVE 10/08/2016 4:06pm 10/08/2016 4:35pm Urine Culture Indicated CULT REFLEXED &SETUP 10/08/2016 4:06pm 01/2017 4:35pm White Blood Count 7.8 T/MM3 4.5-11.0 10/12/2016 4:30am 10/12/2016 6: 45am Red Blood Count 2.65 M/MM3 L 4.00-5.20 10/12/2016 4:30am 10/12/2016 6: 45am Hemoglobin 8.2 GM/DL L 12-16 10/12/2016 4:30am 10/12/2016 6:45am Hematocrit 25.5 % L 36-46 10/12/2016 4:30am 10/12/2016 6:45am Mean Corpuscular Volume 96.2 UM3 80-100 10/12/2016 4:30am 10/12/2016 6: 45am Mean Corpuscular Hemoglobin 30.9 UUG 26-34 10/12/2016 4:30am 2016 6:45am Mean Corpuscular Hemoglobin Concent 32.2 GM/DL 31-37 10/12/2016 4:30am 10/12/2016 6:45am RDW Standard Deviation 53.9 FL H 36.9-50.2 10/12/2016 4:30am 10/12/2016 6:45am Platelet Count 54 T/MM3 L 130-400 10/12/2016 4:30am 10/12/2016 6:45am Mean Platelet Volume 12.7 UM3 H 9.4-12.4 10/12/2016 4:30am 10/12/2016 6: 45am Neutrophils (%) (Auto) 59.5 % 33-66 10/11/2016 12:24pm 10/11/2016 12: 43pm Lymphocytes (%) (Auto) 20.7 % L 23-45 10/11/2016 12:24pm 10/11/2016 12: 43pm Monocytes (%) (Auto) 17.8 % H 0-9.0 10/11/2016 12:24pm 10/11/2016 12: 43pm Eosinophils (%) (Auto) 0.0 % 0-4 10/11/2016 12:24pm 10/11/2016 12:43pm Basophils (%) (Auto) 0.1 % 0-2 10/11/2016 12:24pm 10/11/2016 12:43pm Immature Granulocyte % (Auto) 1.9 % H 0.0-0.5 10/11/2016 12:24pm 2016 12:43pm Absolute Neutrophils (auto) 4.1 T/MM3 1.8-7.7 10/11/2016 12:24pm 2016 12:43pm Absolute Lymphocytes (auto) 1.4 T/MM3 1-4.8 10/11/2016 12:24pm 2016 12:43pm Absolute Monocytes (auto) 1.2 T/MM3 H 0-0.8 10/11/2016 12:24pm 2016 12:43pm Absolute Eosinophils (auto) 0.0 T/MM3 0-0.5 10/11/2016 12:24pm 2016 12:43pm Absolute Basophils (auto) 0.0 T/MM3 0-0.2 10/11/2016 12:24pm 2016 12:43pm Absolute Immature Granulocyte (auto 0.13 T/MM3 H 0.00-0.03 10/11/2016 12: 24pm 10/11/2016 12:43pm Neutrophils % (Manual) 61.0 % 33-66 10/12/2016 4:30am 10/12/2016 6: 56am Band Neutrophils % 2.0 % 0-6 10/12/2016 4:3010/12/2016 6:56am Lymphocytes % (Manual) 24.0 % 23-45 10/12/2016 4:3010/12/2016 6: 56am Monocytes % (Manual) 12.0 % H 0-9.0 10/12/2016 4:3010/12/2016 6:56am Eosinophils % (Manual) 1.0 % 0-4 10/12/2016 4:3010/12/2016 6:56am Band Neutrophils # 0.2 T/MM3 10/12/2016 4:3010/12/2016 6:56am Absolute Neutrophils (Manual) 4.8 T/MM3 1.8-7.7 10/12/2016 4:3010/12 6:56am Lymphocytes # (Manual) 1.9 T/MM3 1-4.8 10/12/2016 4:3010/12/2016 6: 56am Monocytes # (Manual) 0.9 T/MM3 H 0-0.8 10/12/2016 4:3010/12/2016 6: 56am Eosinophils # (Manual) 0.1 T/MM3 0-0.5 10/12/2016 4:3010/12/2016 6: 56am Red Cell Morphology Comment ABNORMAL 10/12/2016 4:3010/12/2016 6 :56am Anisocytosis 1+ 10/12/2016 4:3010/12/2016 6:56am Poikilocytosis 1+ 10/12/2016 4:3010/12/2016 6:56am Icterus Index < 2 0-7 10/12/2016 4:33am 10/12/2016 5:25am Chemistry Specimen Hemolysis < 15 0-25 10/12/2016 4:3310/12/2016 5 :25am 0-25: Specimen Exhibited No Hemolysis. Turbidity < 20 0-20 10/12/2016 4:3310/12/2016 5:25am Sodium Level 142 MEQ/L 134-144 10/12/2016 4:3310/12/2016 5:25am Potassium Level 4.0 MEQ/L 3.6-5 10/12/2016 4:3310/12/2016 5:25am Chloride Level 104 MEQ/L 98-107 10/12/2016 4:3310/12/2016 5:25am Carbon Dioxide Level 27 MEQ/L 22-30 10/12/2016 4:3310/12/2016 5: 25am Anion Gap 11 MEQ/L 5-15 10/12/2016 4:3310/12/2016 5:25am Blood Urea Nitrogen 27.0 MG/DL H 7-17 10/12/2016 4:3310/12/2016 5: 25am Creatinine 1.4 MG/DL H 0.7-1.2 10/12/2016 4:3310/12/2016 5:25am BUN/Creatinine Ratio 19 RATIO 6-26 10/12/2016 4:3310/12/2016 5:25am Glomerular Filtration Rate Calc 36 10/12/2016 4:3310/12/2016 5: 25am Glucose Level 100 MG/DL 65-110 10/12/2016 4:3310/12/2016 5:25am Calculated Osmolality 278 MOSM/KG 261-280 10/12/2016 4:3310/12/2016 5:25am Calcium Level 8.9 MG/DL 8.4-10.2 10/12/2016 4:3310/12/2016 5:25am Total Bilirubin 0.50 MG/DL 0.20-1.30 10/11/2016 12:24pm 10/11/2016 2: 14pm Alkaline Phosphatase 104 U/L 38-126 10/11/2016 12:24pm 10/11/2016 2: 14pm Total Protein 7.1 G/DL 6.3-8.2 10/11/2016 12:24pm 10/11/2016 2:14pm Albumin 3.8 G/DL 3.5-5.0 10/11/2016 12:24pm 10/11/2016 2:14pm Globulin 3.3 G/DL 2.4-3.6 10/11/2016 12:24pm 10/11/2016 2:14pm Albumin/Globulin Ratio 1.2 RATIO 1.1-2.2 10/11/2016 12:24pm 10/11/2016 2:14pm Aspartate Amino Transf (AST/SGOT) 26 U/L D 14-36 10/11/2016 12:24pm 10/11 2:18pm Alanine Aminotransferase (ALT/SGPT) 51 U/L 9-52 10/11/2016 12:24pm 05/2017 2:14pm Iron Level 54 UG/DL 37-170 10/11/2016 12:24pm 10/12/2016 3:03am Ferritin 203 NG/ML 11-264 10/11/2016 12:24pm 10/12/2016 3:41am Vitamin B12 Level > 1000 PG/ML H 239-931 10/11/2016 12:24pm 10/12/2016 3 :54am CA 125 Antigen 81.1 U/ML H 0-35 10/11/2016 12:24pm 10/11/2016 3:43pm Microbiology Results Procedure Source Organism/Result Collection Date/Time Result Date/Time Result Status Urine Culture Urine, Clean Catch-Midstream ESCHERICHIA COLI 10/08/2016 4: 36pm 10/10/2016 7:03am Final Procedures No known history of procedures. Encounters Encounter Location Arrival/Admit Date Discharge/Depart Date Attending Provider Discharged Inpatient (obs) [facility] 10/11/16 2:31pm 10/12/16 1: 56pm RICHI LEIGH MD Departed Emergency Room [facility] 10/08/16 6:12pm 10/08/16 6: 12pm RICHI LEIGH MD
[2016-10-31 18:20] VITALS: Ht 148.6 cm; Wt 140.2 kg
--- NOTE | 2016-10-31 18:49 | NUR ---
PROVIDER VIVIAN MARKS IN ROOM W/ PT.
--- NOTE | 2016-10-31 18:51 | ERPDOC ---
Departure Disposition Decision Date: October 31, 2016 Disposition Decision Time: 22:35 Disposition: 01 DISCHARGED HOME, SELF-CARE Impression Impression Impression: Primary Impression: CHF exacerbation Congestive heart failure type: unspecified congestive heart failure type Qualified Codes: I50.9 - Heart failure, unspecified Additional Impression: Elevated LFTs Severity: Mild Condition: Stable Seen By: Mid-level only Referrals: HUEY GOLDSTEIN MD (Family) Patient Instructions: Heart Failure (ED) Problems/Meds/Labs Reviewed?: Yes Medications reviewed and manag: Yes Additional Instructions: Your labs and symptoms indicated congestive heart failure. Dr. Negron said you may go home but he would like you to increase your Lasix from 40mg daily to 80mg daily for the next [address] Negron would like to see you in his [place] office on Monday this week. Please call his office tomorrow to set up appointment. Please let them know that ER provider spoke with him when you were in the ED. Magy phone number: or . Follow treatment plan. Follow up care ordered?: Yes Mental Status: Alert, Oriented HPI - Dyspnea General Chief Complaint: Dyspnea/Respdistress Stated Complaint: SHORTNESS OF AIR Time Seen by Provider: 18:49 Source: patient HPI - Dyspnea Initial Comments 76 YO F presents to ED with complaint of feeling SOA for 1 week with exertion. Patient had labs done at PCP's office and was sent to ED due these lab results. Patient denies fever, chills, cough, CP, abdominal pain. Patient says she feel more bloated than usual. Patient has chronic pedal edema but denies any increase. Patient was recently started on norethindrone for vaginal bleeding. Associated Symptoms: denies symptoms, shortness of breath, DENIES: chest pain, cough, diaphoresis, fever/chills, headaches, loss of appetite, malaise, nausea/ vomiting, rash, seizure, syncope, weakness Allergies: Coded Allergies: sulfamethoxazole (Verified Allergy, Severe, RASH, 10/11/16) mupirocin (Verified Allergy, Unknown, 10/11/16) trimethoprim (Verified Allergy, Unknown, 10/11/16) Past History Patient Surgical History Colonoscopy-03/2016, 2012, 2010, 2009, 2007 D&C-2002, 1955 Cholecystectomy-1974 Appendectomy-1973 2 (1964, 1963) Echocardiogram- 08/2016 EF 55%. Mild mitral and tricuspid regurgitation. No significant changes from previous echo in 2008 Cataract extraction-2013 Past Medical History Metabolic: gout, hypertension ENMT: sleep apnea Cardiac: CHF Respiratory: asthma GI: gallbladder disease, DENIES: ulcers Female: renal insufficiency Neurological: DENIES: CVA, seizures Surgical History General: appendix, gallbladder Reproductive/: D&C, Family History Family PMH: FOUND: other (noncontributory) Vaccines Hx Influenza Vaccination: No (doesn't take them) Hx Pneumococcal Vaccination: Yes (CAN'T REMEMBER WHEN) Social History Substance Use Type: does not use Alcohol Intake: none Current Occupational Status: retired Advance Directives: Yes DNR Review of Systems Constitutional Constitutional: DENIES: chills, dizziness, fever, weakness Eyes General: DENIES: erythema, exudate Lids/Accessories: DENIES: erythema, swelling ENMT Ears: DENIES: pain Sinuses: rhinorrhea, DENIES: congestion Mouth/Throat: DENIES: sore throat Cardiovascular Cardiac: dyspnea on exertion, orthopnea, DENIES: chest pain, murmur Rhythm/Rate: DENIES: palpitations Vascular: pedal edema Pulmonary Respiratory: dyspnea, DENIES: cough GI Upper Abdomen: DENIES: nausea, pain, vomiting Lower Abdomen: DENIES: diarrhea, pain General: DENIES: dysuria, pain Musculoskeletal General: DENIES: joint pain, pain, tenderness Integumentary Skin: DENIES: color change, itching, rash Neurological General: DENIES: ataxia, change in strength, numbness, paralysis/paresis, weakness Psychiatric Psychiatric: DENIES: anxiety, depression, nervousness Physical Exam General General Nourishment: well nourished, well developed, no acute distress, adult, obese General Body Habitus: well groomed Vitals and Pain Weight: Kilograms: Height (feet): 4 Height (inches): 11.00 Triage Pain Scale: Eyes (brief) Eyes Brief: found: EOMI ENMT (brief) ENMT Brief: FOUND: TM clear, TM good light reflex, mucosa moist, NOT FOUND: nasal exudate, nasal swelling, pharnyx erythema Neck (brief) Neck: FOUND: trachea midline Respiratory (brief) Respiratory: FOUND: clear all ol[place], equal bilaterally, symmetrical Cardiovascular Auscultation: FOUND: S1, S2, regular Edema : Edema Site: bilateral Edema Location: leg Edema Degree: 2+ Abdomen Inspection: FOUND: other (obese) Palpation: FOUND: soft, NOT FOUND: involuntary guarding, rebound, tender, voluntary guarding Auscultation: FOUND: normoactive (x4) Musculoskeletal (brief) Musculoskeletal Brief: NOT FOUND: deformity, loss of motion Integumentary (brief) Integumentary Brief: FOUND: dry, pink, warm Neurologic (brief) Neurological Brief: FOUND: CN w/o gross def to obs, motor-no gross deficits, sensory-no gross deficits Psychiatric (brief) Psychiatric Brief: FOUND: alert, normal affect, oriented Differential Diagnoses Considering: Acute AL, Asthma Exacerbation, CHF, Pneumonia, Pulmonary Edema, Pulmonary Embolus, Viral Syndrome Progress Results/Orders Orders Procedure Category Date Status Time Cmp - Comprehensive LAB 10/31/16 Complete Metabolic 19:04 Probnp LAB 10/31/16 Complete 19:04 Cbc W/Auto LAB 10/31/16 Complete Diff-Reflex Manual 19:04 D-Dimer LAB 10/31/16 Complete 19:04 Troponin I W LAB 10/31/16 Complete Hemolysis Index 19:04 EKG EKG 10/31/16 Taken 19:04 Chest, Pa & Lateral RAD 10/31/16 Resulted 19:04 Iv Lock (Ed Only) EDM 10/31/16 Transmitted 19:[address] 10/31/16 Resulted Iohexol (Omnipaque) PHA 10/31/16 Complete 21:43 Normal Saline (Ns) PHA 10/31/16 Complete 21:43 Saline Flush (Iv PHA 10/31/16 Complete Flush) 21:44 Normal Saline (Ns) PHA 10/31/16 Complete 23:00 Lab Results Laboratory Tests Test 10/31/16 19:24 White Blood Count 3.4T/MM3 Red Blood Count 2.92M/MM3 Hemoglobin 9.4GM/DL Hematocrit 29.4% Mean Corpuscular Volume 100.7UM3 Mean Corpuscular Hemoglobin 32.2UUG Mean Corpuscular Hemoglobin Concent 32.0GM/DL RDW Standard Deviation 64.3FL Platelet Count 39T/MM3 Mean Platelet Volume 13.0UM3 Immature Granulocyte % (Auto) % Neutrophils (%) (Auto) % Lymphocytes (%) (Auto) % Monocytes (%) (Auto) % Eosinophils (%) (Auto) % Basophils (%) (Auto) % Absolute Immature Granulocyte (auto T/MM3 Absolute Neutrophils (auto) T/MM3 Absolute Lymphocytes (auto) T/MM3 Absolute Monocytes (auto) T/MM3 Absolute Eosinophils (auto) T/MM3 Absolute Basophils (auto) T/MM3 Neutrophils % (Manual) 46.0% Band Neutrophils % 1.0% Lymphocytes % (Manual) 34.0% Reactive Lymphocytes % 1.0% Monocytes % (Manual) 16.0% Basophils % (Manual) 1.0% Metamyelocytes % 1.0% Absolute Neutrophils (Manual) 1.6T/MM3 Band Neutrophils # 0.0T/MM3 Lymphocytes # (Manual) 1.2T/MM3 Reactive Lymphocytes # 0.0T/MM3 Monocytes # (Manual) 0.5T/MM3 Basophils # (Manual) 0.0T/MM3 Metamyelocytes # 0.0T/MM3 Poikilocytosis 2+ Anisocytosis 2+ Schistocytes 1+ Red Cell Morphology Comment Abnormal D-Dimer 938NG/ML Turbidity < 20 Sodium Level 146MEQ/L Potassium Level 4.5MEQ/L Chloride Level 109MEQ/L Carbon Dioxide Level 23MEQ/L Anion Gap 14MEQ/L Blood Urea Nitrogen 22.0MG/DL Creatinine 1.2MG/DL Glomerular Filtration Rate Calc 44 BUN/Creatinine Ratio 18RATIO Glucose Level 106MG/DL Calculated Osmolality 284MOSM/KG Calcium Level 8.8MG/DL Total Bilirubin 0.40MG/DL Icterus Index < 2 Aspartate Amino Transf (AST/SGOT) 90U/L Alanine Aminotransferase (ALT/SGPT) 235U/L Alkaline Phosphatase 96U/L Troponin I 0.015ng/ml AY-Soh-R-Type Natriuretic Peptide 1470PG/ML Total Protein 7.5G/DL Albumin 3.9G/DL Globulin 3.6G/DL Albumin/Globulin Ratio 1.1RATIO Chemistry Specimen Hemolysis < 15 Medications Current ED Medications Iohexol 1 bottle 1 bottle STK-MED ONCE .ROUTE ; Start 10/31/16 at 21:43; Stop 10/31/16 at 21:44; Status DC Sodium Chloride (NS) 100 ml @ As Directed STK-MED ONCE .ROUTE ; Start 10/31/16 at 21:43; Stop 10/31/16 at 21:44; Status DC Sodium Chloride 10 ml 10 ml STK-MED ONCE .ROUTE ; Start 10/31/16 at 21:44; Stop 10/31/16 at 21:45; Status DC Sodium Chloride (NS) 500 ml @ 0 mls/hr Q0M ONCE IV Last administered on t 23:01; Start 10/31/16 at 23:00; Stop 10/31/16 at 23:01; Status DC Progress Progress WBC 3.4, viral shift NA 146 BUN 22 Creatinine 1.2 AST 90 ALT 235 Trop <0.013 Pro [id number] D-dimer 938 Patient's PCP is not available after hours for consultation. I discussed labs, CT/CXR and conversation I had with Dr. Negron. Patient verbalized understanding of treatment plan, follow up with Dr. Negron/PCP and return precautions. EKG EKG : Rate: 60-100 Rhythm: sinus [place]: normal QRS: normal Intervals: [address]/T: normal Interpreted by: signing physician (Dr. Dennison) Consult/PCP Consult/PCP : Type of discussion: Phone Consult/PCP Discussion Details I dicussed patient's, HPI, PMH, labs, CT, CXR, VS and exam findings with Dr. Negron. 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 Dr. Negron would like patient to double lasix dosage for next 2 days and follow in his office on Monday. Xray Xray : Xray: CXR PA/Lat (Cardiomegaly, no pneumonia (Dr. Dennison)) CT CT : CT: PE IV contrast (No evidence of PE) CHERIE WEAVER CLOTH CUTTING INSPECTOR October 31, 2016 18:51
[2016-10-31 19:31] LABS: HCT - HEMATOCRIT 29.4 % (36-46); HGB - HEMOGLOBIN 9.4 GM/DL (12-16); MEAN CORPUSCULAR HGB 32.2 UUG (26-34); MEAN CORPUSCULAR VOLUME 100.7 UM3 (80-100); RED BLOOD COUNT 2.92 M/MM3 (4.00-5.20); WBC - WHITE BLOOD COUNT 3.4 T/MM3 (4.5-11.0)
[2016-10-31 19:40] LABS: ALBUMIN 3.9 G/DL (3.5-5.0); ALBUMIN/GLOBULIN RATIO 1.1 RATIO (1.1-2.2); ALKALINE PHOSPHATASE 96 U/L (38-126); ALT (SGPT) 235 U/L (9-52); ANION GAP 14 MEQ/L (5-15); AST (SGOT) 90 U/L (14-36); BUN/CREATININE RATIO 18 RATIO (6-26); CALCIUM 8.8 MG/DL (8.4-10.2); CHLORIDE 109 MEQ/L (98-107); CO2 - CARBON DIOXIDE 23 MEQ/L (22-30); CREATININE 1.2 MG/DL (0.7-1.2); GLOMERULAR FILTRATION RATE 44; GLUCOSE 106 MG/DL (65-110); POTASSIUM 4.5 MEQ/L (3.6-5); SODIUM 146 MEQ/L (134-144); TOTAL PROTEIN 7.5 G/DL (6.3-8.2)
--- NOTE | 2016-10-31 19:41 | NUR ---
XRAY PT GONE TO XRAY VIA CART.
[2016-10-31 19:48] LABS: PROBNP 1470 PG/ML (0-175)
--- NOTE | 2016-10-31 19:53 | NUR ---
XRAY PT BACK FROM XRAY VIA CART.
[2016-10-31 19:54] LABS: LYMPHOCYTES # (MANUAL) 1.2 T/MM3 (1-4.8); MONOCYTES # (MANUAL) 0.5 T/MM3 (0-0.8); NEUTROPHILS #(MANUAL)-ABSOLUTE 1.6 T/MM3 (1.8-7.7); TOTAL CELLS COUNTED 100 %
[2016-10-31 19:55] LABS: ANISOCYTOSIS 2+; POIKILOCYTOSIS 2+; SCHISTOCYTES 1+
[2016-10-31] MEDS ORDERED: NORMAL SALINE 100 ML ONE (21:43)
[2016-10-31] MEDS ORDERED: IOHEXOL 350 MG/ML 75ml INJECTION ONE (21:43)
[2016-10-31] MEDS ORDERED: SALINE FLUSH 10ml SYRINGE ONE (21:44)
--- NOTE | 2016-10-31 21:46 | NUR ---
IVL 20G STARTED TO LEFT AC IN SECOND ATTEMPT. + BLOOD RETURN NOTED, FLUSHES EASLIY WITH NS. CT NOTIFIED OF ADEQUATE IV SITE.
--- NOTE | 2016-10-31 21:46 | NUR ---
CT SCAN PT GONE TO CT SCAN VIA CART.
--- NOTE | 2016-10-31 22:04 | NUR ---
CT SCAN PT BACK FROM CT SCAN VIA CART.
[2016-10-31] MEDS ORDERED: NORMAL SALINE 500 ML IV ONE (23:00)
[2016-10-31 23:57] VITALS: BP 138/64; PULSE 66; RESP 20; TEMP 98.8; O2SAT 96
--- NOTE | 2016-10-31 23:57 | NUR ---
DISCHARGE PT GIVEN INSTRUCTIONS FOR CONT CARE OF CHF W/ PT VERBALIZING UNDERSTANDING W/ FOLLOWUP AND SIGNED FORM, LEFT ER WHEELCHAIR ASSIST NORMAL FOR PT. ALERT, VS CHARTED CONDITION IMPROVED AND NO ACUTE DISTRESS.
--- NOTE | 2016-11-01 08:05 | DI ---
Indication: ITS.REASON: SOA PROCEDURE: CTA PULMONARY EMBOLI: Encounter: Initial Comparison: CT abdomen and pelvis dated February 05, 2010 Technique: Axial CT pulmonary angiographic phase images were performed through the chest after the administration of intravenous contrast. Coronal and Sagittal MIP reconstructed images were created and reviewed. Automated Exposure Control and Iterative Reconstruction dose reducing techniques were utilized. Contrast: Omnipaque 350 74 mL Findings: Pulmonary arteries: Exam is nondiagnostic for pulmonary embolus due to contrast bolus timing. No large or saddle embolus identified. Other findings: There is some atelectasis in both lungs without obvious pneumonia. Severe motion artifact limits the exam. No pneumothorax or obvious effusion. No axillary or mediastinal adenopathy. Heart is enlarged. No pericardial effusion. The upper abdomen shows no acute findings. There is an exophytic indeterminate lesion arising from the lower pole of the right kidney measuring up to 3 cm in size. This is larger from the comparison study. Impression: 1. Nondiagnostic exam for pulmonary embolus. VQ scan could be performed for additional evaluation. 2. Possible right renal mass. Recommend renal ultrasound for initial further evaluation. There is a preliminary report by [employer]. .
--- NOTE | 2016-11-01 08:10 | DI ---
INDICATION: ITS.REASON: SOA PROCEDURE: CHEST 2-VIEWS UPRIGHT (PA \T\ LAT) Encounter: Initial COMPARISON: CT angiogram of the chest from the same date FINDINGS: Mild left basilar atelectasis. There is no pleural effusion or pneumothorax. The heart is enlarged. Mediastinal contours are grossly normal. IMPRESSION: Basilar atelectasis. Cardiomegaly. No focal pneumonia. .
== END 2016-10-31 23:57 | disposition home or self-care (01) ==
LOC: ED 18:10
DX: I11.0 Hypertensive heart disease with heart failure (principal); I50.9 Heart failure, unspecified; R79.89 Other specified abnormal findings of blood chemistry
CPT/HCPCS: 71020; 71275; 80053; 83880; 84484; 85025; 85379; 93005; 99284; J7050; Q9967